=== PATIENT | female | born 1955 | race Caucasian/White ===

== ENCOUNTER → 2019-07-15 08:35 | Outpatient (CLI) | payer BC, SELFPAY ==
--- NOTE | 2019-07-15 | DI.MG.S_ITS ---
BILATERAL DIGITAL SCREENING MAMMOGRAM 3D/2D WITH CAD: 07/15/2019 CLINICAL: Routine screening. Family history of breast cancer. Comparison is made to exams dated: 09/08/2013 mammogram, 10/03/2014 mammogram - [facility], and 08/19/2016 mammogram - [facility]. The tissue of both breasts is heterogeneously dense. This may lower the sensitivity of mammography. Current study was also evaluated with a Computer Aided Detection (CAD) system. No significant masses, calcifications, or other findings are seen in either breast. There has been no significant interval change. IMPRESSION: NEGATIVE There is no mammographic evidence of malignancy. A 1 year screening mammogram is recommended. This exam was interpreted at Station ID: [id number]. NOTE: For mammograms, a report in lay terms will be sent to the patient. Approximately 15% of breast malignancies will not be visualized mammographically. In the management of a palpable breast mass, a negative mammogram must not discourage biopsy of a clinically suspicious lesion. Electronically Signed By: Cory carrion/yohan:07/16/2019 07:56:43 letter sent: Normal Exam ACR BI-RADS Category 1: Negative 3341F
== END ==
PROVIDERS: Visit Provider Student in an Organized Health Care Education/Training Program
DX: Z12.31 Encounter for screening mammogram for malignant neoplasm of breast (principal); Z80.3 Family history of malignant neoplasm of breast
CPT/HCPCS: 77063; 77067

== ENCOUNTER → 2020-07-18 10:22 | Outpatient (CLI) | payer BC, SELFPAY ==
--- NOTE | 2020-07-18 | DI.MG.S_ITS ---
BILATERAL DIGITAL SCREENING MAMMOGRAM 3D/2D WITH CAD: 07/18/2020 CLINICAL: Routine screening. Family history of breast cancer. Comparison is made to exams dated: 07/15/2019 mammogram - [facility] and 08/19/2016 mammogram - [facility]. The tissue of both breasts is heterogeneously dense. This may lower the sensitivity of mammography. Current study was also evaluated with a Computer Aided Detection (CAD) system. No significant masses, calcifications, or other findings are seen in either breast. There has been no significant interval change. IMPRESSION: NEGATIVE There is no mammographic evidence of malignancy. A 1 year screening mammogram is recommended. This exam was interpreted at Station ID: [id number]. NOTE: For mammograms, a report in lay terms will be sent to the patient. Approximately 15% of breast malignancies will not be visualized mammographically. In the management of a palpable breast mass, a negative mammogram must not discourage biopsy of a clinically suspicious lesion. Electronically Signed By: Benjamin gunter/yohan:07/18/2020 10:56:28 letter sent: Normal Exam ACR BI-RADS Category 1: Negative 3341F
== END ==
PROVIDERS: PCP Student in an Organized Health Care Education/Training Program; Referring Provider Student in an Organized Health Care Education/Training Program; Visit Provider Student in an Organized Health Care Education/Training Program
DX: Z12.31 Encounter for screening mammogram for malignant neoplasm of breast (principal); Z80.3 Family history of malignant neoplasm of breast
CPT/HCPCS: 77063; 77067

== ENCOUNTER → 2021-04-04 09:05 | Outpatient (CLI) | payer BC, SELFPAY ==
[2021-04-04 10:26] LABS: COVID19 -Nasal RAPID Negative (Negative)
== END ==
PROVIDERS: PCP Student in an Organized Health Care Education/Training Program; Visit Provider Physician Assistant
DX: Z01.812 Encounter for preprocedural laboratory examination (principal); Z20.822 Contact with and (suspected) exposure to COVID-19
CPT/HCPCS: 87635

== ENCOUNTER 2021-04-06 11:49 | Day surgery (SDC) | payer BC, SELFPAY ==
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
--- NOTE | 2021-04-06 12:15 | P.OP.ENDO_ITS ---
Operative Date/Time/Diagnoses Date of procedure: 04/06/21 Procedure Notes SCOAP/Timeout: 1:09 p.m. Procedure in detail: ENDOSCOPIST: Elma Gates MD Sedation RN: Daysi Cuenca RN Sedation start time: 1:10 p.m. Sedation end time: 1:34 p.m. PROCEDURE: Colonoscopy INDICATIONS: 1. History of colon polyps 2. Screening for colon cancer MEDICATION: Levsin 0.125 mg sublingual, incremental doses of Versed and fentanyl until appropriate level sedation achieved. ASA CLASS: 2 CECAL WITHDRAWAL TIME: 7 minutes COMPLICATIONS: None. EXTENT OF PROCEDURE: Cecum. QUALITY OF PREP: Good with portions of liquid stool. PROCEDURE: Prior to insertion of the colonoscope, a digital rectal examination was accomplished with circumferential palpation of the distal rectal mucosa without significant findings being noted. The high-definition colonoscope was passed into the rectum in the usual fashion and advanced over to the cecum without difficulty. The ileocecal valve, appendiceal stoma, and medial wall all could be inspected and no abnormalities were seen. ASCENDING COLON: As the colonoscope was withdrawn, care was taken to expose and inspect the haustral folds and no abnormalities were seen. HEPATIC FLEXURE: Normal, no polyps, diverticula or other abnormalities. TRANSVERSE COLON: Normal, no polyps, diverticula or other abnormalities. DESCENDING COLON: Normal, no polyps, diverticula or other abnormalities. SIGMOID COLON: Normal, no polyps, diverticula or other abnormalities. RECTUM: Normal. J maneuver was produced. There was no significant perianal disease. The J maneuver was broken. The remainder of the rectum was inspected and there was minor external hemorrhoid disease. The scope was withdrawn. IMPRESSION: 1. Normal colonoscopy 2. External hemorrhoid disease, mild PLAN: 1. Secondary to history of colon polyps, repeat colonoscopy in 5 years. The possibility of a missed lesion including a malignancy has been discussed with the patient previously. Potential alarm symptoms have been discussed and preeti young be reported immediately.
[2021-04-06 12:23] VITALS: BP 115/71; PULSE 72; RESP 18; TEMP 36.9; O2SAT 98; BMI 23.5
[2021-04-06] MEDS: HYOSCYAMINE 0.125 MG TABLET PO (13:04)
[2021-04-06] MEDS: LACTATED RINGERS 1,000 ML 200 ML IV (13:06)
[2021-04-06] MEDS: fentaNYL 250 MCG/5 ML INJ IV (13:20)
[2021-04-06] MEDS: MIDAZOLAM 5 MG/5 ML VIAL IV (13:20)
[2021-04-06 13:36] VITALS: BP 113/73; PULSE 61; RESP 14; TEMP 36.4; O2SAT 100
[2021-04-06 13:41] VITALS: BP 110/71; PULSE 61; RESP 14; O2SAT 100
[2021-04-06 13:46] VITALS: BP 112/76; PULSE 66; RESP 11; O2SAT 100
[2021-04-06 13:51] VITALS: BP 105/69; PULSE 65; RESP 12; O2SAT 99
[2021-04-06 13:54] VITALS: BP 118/76; PULSE 62; RESP 12; TEMP 36.6; O2SAT 100
== END 2021-04-06 14:03 | disposition home or self-care (01) ==
PROVIDERS: PCP Student in an Organized Health Care Education/Training Program; Referring Provider Student in an Organized Health Care Education/Training Program; Visit Provider Student in an Organized Health Care Education/Training Program
PROC: 0DJD8ZZ Inspection of Lower Intestinal Tract, Via Natural or Artificial Opening Endoscopic (ICD-10-PCS; CPT 45378; principal; 2021-04-06 13:00)
DX: Z12.11 Encounter for screening for malignant neoplasm of colon (principal); Z86.010 Personal history of colon polyps; K64.4 Residual hemorrhoidal skin tags
CPT/HCPCS: 45378; J2250; J3010

== ENCOUNTER → 2021-07-19 14:53 | Outpatient (CLI) | payer BC, SELFPAY ==
--- NOTE | 2021-07-19 14:54 | DI.MG.S_ITS ---
BILATERAL DIGITAL SCREENING MAMMOGRAM 3D/2D WITH CAD: 07/19/2021 CLINICAL: Routine screening. Family history of breast cancer. Comparison is made to exams dated: 07/18/2020 mammogram, 07/15/2019 mammogram - [facility], 08/19/2016 mammogram - [facility], 10/03/2014 mammogram, and 09/08/2013 mammogram - [facility]. The tissue of both breasts is heterogeneously dense. This may lower the sensitivity of mammography. Current study was also evaluated with a Computer Aided Detection (CAD) system. No significant masses, calcifications, or other findings are seen in either breast. There has been no significant interval change. IMPRESSION: NEGATIVE There is no mammographic evidence of malignancy. A 1 year screening mammogram is recommended. This exam was interpreted at Station ID: [id number]. NOTE: For mammograms, a report in lay terms will be sent to the patient. Approximately 15% of breast malignancies will not be visualized mammographically. In the management of a palpable breast mass, a negative mammogram must not discourage biopsy of a clinically suspicious lesion. Electronically Signed By: Cory carrion/yohan:07/20/2021 09:13:41 letter sent: Normal Exam ACR BI-RADS Category 1: Negative 3341F
== END ==
PROVIDERS: PCP Student in an Organized Health Care Education/Training Program; Referring Provider Student in an Organized Health Care Education/Training Program; Visit Provider Student in an Organized Health Care Education/Training Program
DX: Z12.31 Encounter for screening mammogram for malignant neoplasm of breast (principal); Z80.3 Family history of malignant neoplasm of breast
CPT/HCPCS: 77063; 77067

== ENCOUNTER → 2022-07-20 08:53 | Outpatient (CLI) | payer MEDICARE, SELFPAY ==
--- NOTE | 2022-07-20 08:55 | DI.MG.S_ITS ---
BILATERAL DIGITAL SCREENING MAMMOGRAM 3D/2D WITH CAD: 07/20/2022 CLINICAL: Routine screening. Family history of breast cancer. Comparison is made to exams dated: 07/19/2021 mammogram, 07/18/2020 mammogram, and 07/15/2019 mammogram - [facility]. Both breasts are heterogeneously dense, which may obscure small masses (category c / 51-75% glandular tissue). Current study was also evaluated with a Computer Aided Detection (CAD) system. No significant masses, calcifications, or other findings are seen in either breast. There has been no significant interval change. IMPRESSION: NEGATIVE There is no mammographic evidence of malignancy. A 1 year screening mammogram is recommended. Based on Tyrer-Cuzick model (a risk assessment model), the patient's lifetime risk is 24.8% and her 10 year risk is 12.5%. If a patient has an elevated risk, a more comprehensive evaluation should be considered and/or a referral to a genetic counselor. The [place] [employer], [employer], and NCCN Guidelines advise the consideration of Breast MRI as an adjunct to screening mammography in patients whose Lifetime risk to develop breast cancer is 20% or higher. This exam was interpreted at Station ID: [id number]. NOTE: For mammograms, a report in lay terms will be sent to the patient. Approximately 15% of breast malignancies will not be visualized mammographically. In the management of a palpable breast mass, a negative mammogram must not discourage biopsy of a clinically suspicious lesion. Electronically Signed By: Crispin rodriguez/yohan:07/22/2022 09:11:27 letter sent: Normal Exam ACR BI-RADS Category 1: Negative 3341F
== END ==
PROVIDERS: PCP Student in an Organized Health Care Education/Training Program; Referring Provider Family Medicine; Visit Provider Family Medicine
DX: Z12.31 Encounter for screening mammogram for malignant neoplasm of breast (principal); Z80.3 Family history of malignant neoplasm of breast
CPT/HCPCS: 77063; 77067

== ENCOUNTER → 2022-12-31 15:01 | Outpatient (CLI) | payer OTHER, SELFPAY ==
--- NOTE | 2023-01-01 15:29 | DI.DEXA.S_ITS ---
Indication: postmenopausal; screening for osteoporosis; Referring Provider: APRIL PAREKH Study: Bone densitometry was performed. Exam Date: December 31, 2022 Accession number: [id number] Bone Density: Region BMD T-score Z-score Classification AP Spine(L1-L4) 0.739 -2.8 -1.0 Osteoporosis Femoral Neck (Left) 0.695 -1.4 0.2 Osteopenia Total Hip (Left) 0.842 -0.8 0.5 Normal Femoral Neck (Right) 0.675 -1.6 0.0 Osteopenia Total Hip (Right) 0.754 -1.5 -0.3 Osteopenia Total Hip Mean 0.798 -1.2 0.1 Osteopenia World Health Organization criteria for BMD impression classify patients as: Normal (T-score at or above -1.0), Osteopenia (T-score between -1.0 and -2.5), or Osteoporosis (T-score at or below -2.5). 10-year Fracture Risk: FRAX not reported because: Some T-score for Spine Total or Hip Total or Femoral Neck at or below -2.5 Impression: The patient has osteoporosis, based on the Total Spine T-score. Discussion: INCREASED RISK OF FRACTURE. BONE DENSITY IS UNDESIRABLY LOW AT ONE OR MORE SKELETAL SITES, CONSISTENT WITH POSTMENOPAUSAL OSTEOPOROSIS. This patient's lowest T-score meets the World Health Organization's (WHO) criteria for osteoporosis at one or more sites (T-score -2.5 or below). In untreated patients, the risk of osteoporotic fracture increases approximately two-fold for each 1.0 SD decrease in T-score. Low bone density is not the only risk factor for fracture; also consider factors such as patient's age, frailty or poor health, risk of falling, risk of injury, previous osteoporotic fracture, family history of osteoporosis, cigarette smoking, low body weight, etc. Not everyone with low bone mineral density has osteoporosis; osteomalacia and other metabolic bone disorders should also be considered. Patients who have osteoporosis should be evaluated for specific diseases and conditions (secondary causes) that may cause or contribute to bone loss. The [employer] Clinical Endocrinologists (AACE) and National Osteoporosis Foundation (NOF) recommend pharmacologic intervention for all postmenopausal women whose T-score is in this range. The patient should follow a healthful lifestyle (good nutrition with adequate calcium and vitamin D, and appropriate weight-bearing exercise). Follow-Up: Consider a repeat BMD and Vertebral Fracture Assessment (VFA) exam in 2 years or sooner if medically necessary, to reassess this patient's status. Reported by: JENI TENORIO M.D. on 12/31/2022 3:35:00 PM.
== END ==
PROVIDERS: PCP Student in an Organized Health Care Education/Training Program; Referring Provider Internal Medicine; Visit Provider Internal Medicine
DX: Z78.0 Asymptomatic menopausal state (principal); Z13.820 Encounter for screening for osteoporosis; M81.0 Age-related osteoporosis without current pathological fracture; Z92.23 Personal history of estrogen therapy; Z90.710 Acquired absence of both cervix and uterus
CPT/HCPCS: 77080

== ENCOUNTER → 2023-08-21 15:17 | Outpatient (CLI) | payer OTHER, SELFPAY ==
--- NOTE | 2023-08-21 | DI.MG.S_ITS ---
BILATERAL DIGITAL SCREENING MAMMOGRAM 3D/2D WITH CAD: 08/21/2023 CLINICAL: Routine screening. Family history of breast cancer. Comparison is made to exams dated: 07/20/2022 mammogram, 07/19/2021 mammogram, and 07/18/2020 mammogram - [facility]. Both breasts are heterogeneously dense, which may obscure small masses (category c / 51-75% glandular tissue). Current study was also evaluated with a Computer Aided Detection (CAD) system. No significant masses, calcifications, or other findings are seen in either breast. There has been no significant interval change. IMPRESSION: NEGATIVE There is no mammographic evidence of malignancy. A 1 year screening mammogram is recommended. Based on Tyrer-Cuzick model (a risk assessment model), the patient's lifetime risk is 23.8% and her 10 year risk is 12.5%. If a patient has an elevated risk, a more comprehensive evaluation should be considered and/or a referral to a genetic counselor. The [employer] [employer], [employer], and NCCN Guidelines advise the consideration of Breast MRI as an adjunct to screening mammography in patients whose Lifetime risk to develop breast cancer is 20% or higher. This exam was interpreted at Station ID: [id number]. NOTE: For mammograms, a report in lay terms will be sent to the patient. Approximately 15% of breast malignancies will not be visualized mammographically. In the management of a palpable breast mass, a negative mammogram must not discourage biopsy of a clinically suspicious lesion. Electronically Signed By: Leland chan/yohan:08/22/2023 08:46:48 letter sent: Normal Exam ACR BI-RADS Category 1: Negative 3341F
== END ==
PROVIDERS: PCP Family Medicine; Referring Provider Family Medicine; Visit Provider Family Medicine
DX: Z12.31 Encounter for screening mammogram for malignant neoplasm of breast (principal); Z80.3 Family history of malignant neoplasm of breast
CPT/HCPCS: 77063; 77067

== ENCOUNTER → 2023-12-21 09:43 | Outpatient (CLI) | payer OTHER, SELFPAY ==
--- NOTE | 2023-12-21 09:50 | DI.RAD.S_ITS ---
PROCEDURE: XR THORACIC SPINE 3V INDICATIONS: chronic midline thoracic back pain TECHNIQUE: 3 views of the thoracic spine were acquired. COMPARISON: None. FINDINGS: Bones: No fractures or dislocations. No suspicious bony lesions. 12 pairs of ribs are noted, and appear intact where visualized. Mild to moderate multilevel degenerative changes with anterior osteophytosis, disc height loss and facet arthropathy. Slight dextroconvex curvature of the lumbar spine centered at L2. There is mild anterior wedging of multiple thoracic vertebral bodies Soft tissues: No paravertebral stripe thickening. IMPRESSION: 1. No acute bony abnormality. 2. Mild to moderate multilevel degenerative changes of the thoracic spine with mild anterior wedging of multiple thoracic vertebral bodies. If clinical symptoms persist, consider MRI for further evaluation. Dictated by: Wily Harry M.D. on 12/21/2023 at 18:38 Approved by: Wily Harry M.D. on 12/21/2023 at 18:39
== END ==
PROVIDERS: PCP Family Medicine; Referring Provider Family Medicine; Visit Provider Family Medicine
DX: M47.814 Spondylosis without myelopathy or radiculopathy, thoracic region (principal); M48.54XA Collapsed vertebra, not elsewhere classified, thoracic region, initial encounter for fracture; M54.6 Pain in thoracic spine; G89.29 Other chronic pain
CPT/HCPCS: 72072

== ENCOUNTER 2024-01-26 13:17 | Inpatient (IN) | payer OTHER, MEDICARE, SELFPAY ==
[2024-01-26] VITALS (21 sets, daily range): BP systolic 107–148; BP diastolic 58–79; PULSE 62–150; RESP 12–41; TEMP 36.6–37.2; O2SAT 95–100; BMI 19.3; BMI 20.3
--- NOTE | 2024-01-26 13:26 | DI.RAD.S_ITS ---
PROCEDURE: XR CHEST 1V INDICATIONS: chest pain TECHNIQUE: One view of the chest was acquired. COMPARISON: None. FINDINGS: Surgical changes and devices: None. Lungs and pleura: Lungs are clear. No pleural effusions or pneumothorax. Mediastinum: Mediastinal contours appear normal. Heart size is normal. Bones and chest wall: No suspicious bony lesions. Overlying soft tissues appear unremarkable. IMPRESSION: No acute cardiopulmonary abnormality is seen. Approved by: Benjamin Ball M.D. on 01/26/2024 at 14:57
[2024-01-26 13:47] LABS: Add Manual Diff / Slide Review NO; Basophils Absolute Auto 0 /uL (0-100); Basophils Percent Auto 0.4 % (0-2); Eosinophils Absolute Auto 0 /uL (0-450); Eosinophils Percent Auto 0.2 % (2-4); Hematocrit 46.9 % (36-46); Hemoglobin 15.7 g/dL (12.0-16.0); Lymphocytes Absolute Auto 700 /uL (1100-4500); Lymphocytes Percent Auto 10.4 % (25-40); Mean Corpuscular HGB Conc 33.4 % (30-36); Mean Corpuscular Hemoglobin 30.4 PG (26-34); Mean Corpuscular Volume 91.2 fL (80-100); Monocytes Absolute Auto 400 /uL (0-900); Monocytes Percent Auto 6.2 % (3-14); Neutrophils Absolute Auto 5700 /uL (1500-7000); Neutrophils Percent Auto 82.8 % (50-75); Platelet Count 243 X10^3/uL (150-400); Red Blood Cell Count 5.15 X10^6/uL (4.0-5.2); Red Cell Distribution Width 12.9 % (11.6-14.8); White Blood Cell Count 6.9 X10^3/uL (4.5-11.0)
[2024-01-26 13:54] LABS: INR 1.1 (0.9-1.3); Prothrombin Time 12.4 SECONDS (9.4-12.5)
[2024-01-26 13:57] LABS: PTT Partial Thromboplastin Tim 27 SECONDS (25.1-36.5)
[2024-01-26 14:00] LABS: Alanine Aminotransferase 29 IU/L (<35); Albumin Globulin Ratio 1.8 (1.0-2.8); Alkaline Phosphatase 168 U/L (38-126); Aspartate Aminotransferase 27 IU/L (14-36); Bilirubin Total 1.4 mg/dL (0.2-1.3); Blood Urea Nitrogen 18 mg/dL (7-17); Calcium 11.1 mg/dL (8.4-10.2); Carbon Dioxide 19 mmol/L (22-32); Chloride 94 mmol/L (98-107); Creatine Kinase 50 U/L (30-135); Estimated Glomerular Filt Rate > 60 mL/min (>60); Globulin 2.8 g/dL (1.7-4.1); HEMOLYSIS < 15 (0-50); Lipase 120 U/L (23-300); Magnesium 1.7 mg/dL (1.6-2.3); Potassium 4.7 mmol/L (3.4-5.1); Sodium 129 mmol/L (137-145); Total Protein 7.8 g/dL (6.3-8.2)
[2024-01-26 14:02] LABS: Glucose 575 mg/dL (80-110)
[2024-01-26 14:11] LABS: Troponin I < 0.012 ng/mL (0.01-0.034)
[2024-01-26 14:29] LABS: Hemoglobin A1C% w Est Avg Glu 12.5 % (4.0-6.0)
[2024-01-26] MEDS: SODIUM CHLORIDE 0.9% 1,000 ML 1000 ML IV (14:30)
[2024-01-26 14:33] LABS: Lactate (Lactic Acid) 1.9 mmol/L (0.7-2.1)
[2024-01-26 14:44] LABS: Phosphorous 4.2 mg/dL (2.8-4.1)
[2024-01-26 14:49] LABS: Ketones (Beta-Hydroxybutyrate) 6.66 mmol/L (<0.27)
[2024-01-26 15:15] LABS: PCO2 VBG 42.6 mmHg (45-50); pH VBG 7.26 (7.33-7.43)
[2024-01-26 15:16] LABS: Fractionated Inspired Oxygen 20; HCO3 VBG 19 mmol/L (24-28); Oxygen Saturation VBG 44 % (70-75); PO2 VBG 28 mmHg (35-45); Total CO2 VBG 20 mmol/L (24-29)
--- NOTE | 2024-01-26 15:16 | ED_ITS ---
HPI - Dizziness <Josi Singh PA-C - Last Filed: 01/26/24 18:46> General Chief Complaint: Dizziness Stated Complaint: AFIB, dizziness, eyesight problem Time Seen by Provider: 01/26/24 14:02 Source: patient Mode of arrival: Ambulatory History of Present Illness HPI Narrative: 68-year-old female with past medical history hypothyroidism, AFib, ADHD presents to the ED with a few days of lightheadedness, intermittent blurry vision, dry mouth. 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 EMS registered a blood sugar of 300. Patient is not a diagnosed diabetic. Patient endorses polydipsia, polyuria, dry mouth, unintentional weight loss of 20 lb over the last month. Patient states that she was diagnosed last July with atrial fibrillation but does not take any medications for it. Denies chest pain, shortness of breath, abdominal pain, nausea, vomiting, syncope. Denies any viral or flu-like symptoms. Related Data Home Medications Medication Instructions Recorded Confirmed calcium carbonate 400 mg/5 mL oral 400 mg PO DAILY 05/17/20 01/26/24 suspension multivitamin 1 cap PO DAILY 05/17/20 01/26/24 cholecalciferol (vitamin D3) 10 10 mcg PO DAILY 12/11/20 01/26/24 mcg (400 unit) capsule levothyroxine 100 mcg tablet 100 mcg PO DAILY 09/23/22 01/26/24 (Synthroid) vitamin E (dl, acetate) 1 softgel PO DAILY 09/23/22 01/26/24 Previous Rx's Medication Instructions Recorded dextroamphetamine-amphetamine ER 10 mg PO DAILY #30 caps 12/23/22 10 mg 24hr capsule,extend release Allergies Allergy/AdvReac Type Severity Reaction Status Date / Time No Known Drug Allergies Allergy Verified 09/23/22 14:36 Review of Systems <Josi Singh PA-C - Last Filed: 01/26/24 18:46> Constitutional Constitutional: Denies chills, Denies fatigue, Denies fever(s), Denies frequent falls, Denies lethargy, Reports poor appetite, Denies weakness and Reports weight loss Eyes Eyes: Reports blurry vision, Denies change in vision, Denies eye discharge, Denies irritation and Denies loss of vision ENT Ears, Nose, Mouth, and Throat: Denies change in voice, Denies dizziness, Denies neck pain, Denies sore throat and Denies throat swelling Comments: Dry mouth Cardiovascular Cardiovascular: Denies chest pain, Denies irregular heart rhythm, Reports lightheadedness, Denies palpitations, Denies dyspnea, Denies dyspnea on exertion and Denies orthopnea Respiratory Respiratory: Denies cough, Denies dyspnea, Denies dyspnea on exertion and Denies wheezing Gastrointestinal Gastrointestinal: Denies abdominal pain, Denies change in bowel habits, Denies diarrhea, Denies nausea and Denies vomiting Genitourinary Comments: Frequent urination Musculoskeletal Musculoskeletal: Denies neck pain and Denies numbness Integumentary/Breasts Skin/Breast: Denies pruritus, Denies erythema, Denies rash and Denies wounds Neurologic Neurologic: Denies behavioral changes, Denies confusion, Denies dizziness, Denies frequent falls, Denies loss of vision, Denies numbness and Denies weakness Psychiatric Psychiatric: Denies anxiety, Denies behavioral changes, Denies confusion, Denies depression, Denies homicidal ideation and Denies suicidal ideation Endocrine Endocrine: Denies fatigue, Denies flushing and Denies palpitations Hematologic/Lymphatic Hematologic/Lymphatic: Denies easy bruising Allergic/Immunologic Allergic/Immunologic: Denies urticaria, Denies throat swelling and Denies wheezing Patient History <Josi Singh PA-C - Last Filed: 01/26/24 18:46> Medical History (Updated 01/26/24 @ 18:29 by Josi Singh PA-C) Bunion of great toe of right foot Bunion of great toe of left foot Thyroid cancer Surgical History (Updated 04/06/21 @ 12:18 by Daina Allen RN) History of arthroscopic knee surgery H/O: hysterectomy History of thyroidectomy Social History household members: none Smoking Status: Never smoker alcohol intake: current Smoking Status: Never smoker alcohol intake frequency: holidays/special occasions only Substance Use Type: does not use Exam <Josi Singh PA-C - Last Filed: 01/26/24 18:46> Narrative Exam Narrative: Const General:?cooperative, healthy appearing and comfortable [facility] Head:?normal to inspection Ears:?hearing grossly normal bilaterally Nose:?external nose normal Face and sinus:?normal facial exam and sinuses nontender Mouth:?oral mucosae normal Throat:?posterior oropharynx normal Eyes General:?appearance normal, both eyes and all related structures Neck Neck:?normal visual inspection and no lymphadenopathy noted Resp Effort & Inspection:?normal respiratory effort Auscultation:?clear to auscultation bilaterally Cardio Rate:?regular rate Rhythm:?regular rhythm Neuro General:?patient alert, patient awake and patient oriented x3; PERRLA; gait normal Initial Vital Signs Initial Vital Signs: Vital Signs Temperature 97.8 F 01/26/24 13:19 Pulse Rate 96 H 01/26/24 13:19 Respiratory Rate 16 01/26/24 13:19 Blood Pressure 148/77 H 01/26/24 13:19 Pulse Oximetry 100 01/26/24 13:19 Oxygen Delivery Method Room Air 01/26/24 13:19 <Larisa Silva DO - Last Filed: 01/31/24 01:19> Initial Vital Signs Initial Vital Signs: Vital Signs Temperature 97.8 F 01/26/24 13:19 Pulse Rate 96 H 01/26/24 13:19 Respiratory Rate 16 01/26/24 13:19 Blood Pressure 148/77 H 01/26/24 13:19 Pulse Oximetry 100 01/26/24 13:19 Oxygen Delivery Method Room Air 01/26/24 13:19 Course <Josi Singh PA-C - Last Filed: 01/26/24 18:46> Orders Ordered: Discontinued Medications Acetaminophen (Acetaminophen 325 Mg Tablet) 650 mg PO Q4HR PRN PRN Reason: Fever/Mild Pain (1-3) Aspirin (Aspirin 81 Mg Chew Tab) 324 mg PO NOW ONE Stop: 01/26/24 13:26 Last Admin: 01/26/24 14:24 Dose: Not Given Documented By: JESSICA Aspirin (Aspirin Ec 81 Mg Tablet) 81 mg PO DAILY [facility] Last Admin: 01/29/24 08:50 Dose: 81 mg Documented By: Admin: 01/28/24 09:42 Dose: 81 mg Documented By: YURI Citalopram Hydrobromide (Citalopram 10 Mg Tablet) 10 mg PO DAILY [facility] Last Admin: 01/29/24 08:50 Dose: 10 mg Documented By: Admin: 01/28/24 08:48 Dose: 10 mg Documented By: Admin: 01/27/24 08:45 Dose: 10 mg Documented By: DAGO Diltiazem HCl (Diltiazem 5 Mg/Ml Sdv) 10 mg IV NOW ONE Stop: 01/26/24 18:37 Last Admin: 01/26/24 18:36 Dose: 10 mg Documented By: DAGO Enoxaparin Sodium (Enoxaparin 40 Mg/0.4 Ml Syringe) 40 mg SUBCUT DAILY [facility] Enoxaparin Sodium (Enoxaparin 30 Mg/0.3 Ml Syringe) 30 mg SUBCUT BID [facility] Last Admin: 01/27/24 08:45 Dose: 30 mg Documented By: Admin: 01/26/24 20:18 Dose: 30 mg Documented By: Enoxaparin Sodium (Enoxaparin 40 Mg/0.4 Ml Syringe) 40 mg SUBCUT DAILY [facility] Last Admin: 01/29/24 08:51 Dose: 40 mg Documented By: Admin: 01/28/24 08:48 Dose: 40 mg Documented By: YURI Famotidine (Famotidine 20 Mg Tablet) 20 mg PO DAILY [facility] Last Admin: 01/29/24 08:50 Dose: 20 mg Documented By: Admin: 01/28/24 08:48 Dose: 20 mg Documented By: Admin: 01/27/24 08:55 Dose: Not Given Documented By: DAGO Sodium Chloride (Normal Saline 0.9%) 1,000 mls @ 1,000 mls/hr IV BOLUS ONE Stop: 01/26/24 15:17 Last Infusion: 01/26/24 15:29 Dose: Infused Documented By: Admin: 01/26/24 14:30 Dose: 1,000 mls/hr Documented By: JESSICA Sodium Chloride (Normal Saline 0.9%) 1,000 mls @ 500 mls/hr IV CONT FAHAD Stop: 02/25/24 17:29 Last Infusion: 01/26/24 17:45 Dose: 0 mls/hr Documented By: Admin: 01/26/24 15:52 Dose: 500 mls/hr Documented By: SB POTASSIUM CHLORIDE IN WATER (Potassium Cl 10 Meq/100 Ml Nikia) 10 meq in 100 mls @ 100 mls/hr IV Q1H FAHAD Stop: 01/26/24 17:44 Last Infusion: 01/26/24 17:48 Dose: 0 mls/hr Documented By: Admin: 01/26/24 17:17 Dose: 100 mls/hr Documented By: Infusion: 01/26/24 17:15 Dose: Infused Documented By: Admin: 01/26/24 16:05 Dose: 100 mls/hr Documented By: SB INSULIN DRIP PREMIX (Myxredlin Drip Premix) 100 unit in 100 mls @ 5.579 mls/hr IV TITRATE FAHAD; Protocol Last Titration: 01/27/24 08:18 Dose: 0 unit/kg/hr, 0 mls/hr Documented By: DAGO Co-signed By: JIN Titration: 01/27/24 08:06 Dose: 0.05 unit/kg/hr, 2.95 mls/hr Documented By: KB Co-signed By: JIN Titration: 01/27/24 07:00 Dose: 0.02 unit/kg/hr, 1.18 mls/hr Documented By: Co-signed By: [facility] Titration: 01/27/24 06:00 Dose: 0.02 unit/kg/hr, 1.18 mls/hr Documented By: Co-signed By: SMS Titration: 01/27/24 05:00 Dose: 0.05 unit/kg/hr, 2.95 mls/hr Documented By: MS Co-signed By: SMS Titration: 01/27/24 04:00 Dose: 0.02 unit/kg/hr, 1.18 mls/hr Documented By: MS Co-signed By: SMS Titration: 01/27/24 03:00 Dose: 0.02 unit/kg/hr, 1.183 mls/hr Documented By: MS Co-signed By: SMS Titration: 01/27/24 02:00 Dose: 0.02 unit/kg/hr, 1.18 mls/hr Documented By: MS Co-signed By: SMS Titration: 01/27/24 01:00 Dose: 0.02 unit/kg/hr, 1.18 mls/hr Documented By: MS Co-signed By: SMS Titration: 01/27/24 00:00 Dose: 0.02 unit/kg/hr, 1.18 mls/hr Documented By: MS Co-signed By: SMS Titration: 01/26/24 23:00 Dose: 0.08 unit/kg/hr, 4.72 mls/hr Documented By: Co-signed By: SMS Titration: 01/26/24 22:00 Dose: 0.11 unit/kg/hr, 5.9 mls/hr Documented By: Co-signed By: CLEMENTINE Titration: 01/26/24 21:00 Dose: 0.05 unit/kg/hr, 2.95 mls/hr Documented By: Co-signed By: CLEMENTINE Titration: 01/26/24 20:05 Dose: 0.02 unit/kg/hr, 1.18 mls/hr Documented By: Co-signed By: CLEMENTINE Titration: 01/26/24 19:00 Dose: 0.05 unit/kg/hr, 2.95 mls/hr Documented By: DAGO Co-signed By: JIN Titration: 01/26/24 18:35 Dose: 0.11 unit/kg/hr, 5.9 mls/hr Documented By: DAGO Co-signed By: JIN Admin: 01/26/24 16:53 Dose: 0.1 unit/kg/hr, 5.579 mls/hr Documented By: TRIPP Co-signed By: JESSICA Sodium Chloride (Normal Saline 0.9%) 1,000 mls @ 125 mls/hr IV CONT FAHAD Last Admin: 01/26/24 19:04 Dose: Not Given Documented By: DAGO Lactated Ringer's (Lactated Ringers) 500 mls @ 1,000 mls/hr IV BOLUS ONE Stop: 01/26/24 18:52 Last Admin: 01/26/24 18:30 Dose: 1,000 mls/hr Documented By: DAGO Dextrose/Sodium Chloride (Dextrose 5%-0.45% Ns) 1,000 mls @ 88.5 mls/hr IV CONT FAHAD Last Infusion: 01/27/24 08:20 Dose: 0 mls/hr Documented By: Admin: 01/27/24 06:06 Dose: 88.5 mls/hr Documented By: Infusion: 01/27/24 06:06 Dose: Infused Documented By: Admin: 01/26/24 19:00 Dose: 88.5 mls/hr Documented By: Magnesium Sulfate (Magnesium Sulfate) 2 gm in 50 mls @ 25 mls/hr IV NOW ONE Stop: 01/26/24 21:21 Last Infusion: 01/26/24 21:30 Dose: Infused Documented By: Co-signed By: CLEMENTINE Admin: 01/26/24 19:48 Dose: 25 mls/hr Documented By: Co-signed By: CLEMENTINE POTASSIUM CHLORIDE IN WATER (Potassium Cl 10 Meq/100 Ml Nikia) 10 meq in 100 mls @ 100 mls/hr IV Q1H FAHAD Stop: 01/26/24 21:29 Last Admin: 01/26/24 21:28 Dose: 100 mls/hr Documented By: Infusion: 01/26/24 21:18 Dose: Infused Documented By: Admin: 01/26/24 20:18 Dose: 100 mls/hr Documented By: MS POTASSIUM CHLORIDE IN WATER (Potassium Cl 10 Meq/100 Ml Nikia) 10 meq in 100 mls @ 100 mls/hr IV Q1H FAHAD Stop: 01/27/24 03:14 Last Infusion: 01/27/24 03:03 Dose: Infused Documented By: Admin: 01/27/24 02:02 Dose: 100 mls/hr Documented By: Infusion: 01/27/24 02:02 Dose: Infused Documented By: Admin: 01/27/24 01:05 Dose: 100 mls/hr Documented By: Infusion: 01/27/24 01:05 Dose: Infused Documented By: Admin: 01/27/24 00:27 Dose: 100 mls/hr Documented By: Infusion: 01/27/24 00:27 Dose: Infused Documented By: Admin: 01/26/24 23:29 Dose: 100 mls/hr Documented By: MS POTASSIUM CHLORIDE IN WATER (Potassium Cl 10 Meq/100 Ml Nikia) 10 meq in 100 mls @ 100 mls/hr IV Q1H FAHAD Stop: 01/27/24 05:44 Last Admin: 01/27/24 05:00 Dose: 100 mls/hr Documented By: Infusion: 01/27/24 04:59 Dose: Infused Documented By: Admin: 01/27/24 03:59 Dose: 100 mls/hr Documented By: Dextrose (D10w) 100 mls @ 999 mls/hr IV PRN PRN PRN Reason: Hypoglycemia Insulin Glargine (Insulin Glargine 100 Unit/Ml 3ml Pen) 11.8 unit SUBCUT NOW STA Stop: 01/27/24 08:12 Last Admin: 01/27/24 08:50 Dose: Not Given Documented By: DAGO Insulin Glargine (Insulin Glargine 100 Unit/Ml 3ml Pen) 12 unit SUBCUT NOW ONE Stop: 01/27/24 08:43 Last Admin: 01/27/24 08:45 Dose: 12 unit Documented By: DAGO Co-signed By: JIN Insulin Glargine (Insulin Glargine 100 Unit/Ml 3ml Pen) 12 unit SUBCUT DAILYCC [facility] Insulin Glargine (Insulin Glargine 100 Unit/Ml 3ml Pen) 12 unit SUBCUT Q12HR [facility]HAD Last Admin: 01/27/24 15:19 Dose: Not Given Documented By: DAGO Insulin Glargine (Insulin Glargine 100 Unit/Ml 3ml Pen) 12 unit SUBCUT BID FAHAD Last Admin: 01/29/24 08:31 Dose: 12 unit Documented By: PENELOPE Co-signed By: JIN Admin: 01/28/24 20:41 Dose: 12 unit Documented By: Co-signed By: MACARENA Admin: 01/28/24 08:41 Dose: 12 unit Documented By: YURI Co-signed By: JOHN Admin: 01/27/24 20:25 Dose: 12 unit Documented By: Co-signed By: ARTURO Insulin Human Lispro (Insulin Lispro 100 Unit/Ml 3ml Vial) 0 unit SUBCUT ACHS [facility]; Protocol Last Admin: 01/29/24 12:50 Dose: 7 unit Documented By: PENELOPE Co-signed By: JIN Admin: 01/29/24 08:32 Dose: 2 unit Documented By: PENELOPE Co-signed By: JIN Admin: 01/28/24 20:41 Dose: 2 unit Documented By: Co-signed By: MACARENA Admin: 01/28/24 17:00 Dose: 7 unit Documented By: YURI Co-signed By: JOHN Admin: 01/28/24 12:22 Dose: 4 unit Documented By: YURI Co-signed By: Admin: 01/28/24 08:32 Dose: 2 unit Documented By: YURI Co-signed By: EV Admin: 01/27/24 20:26 Dose: 5 unit Documented By: Co-signed By: ARTURO Admin: 01/27/24 17:19 Dose: 2 unit Documented By: DAGO Co-signed By: JIN Admin: 01/27/24 12:35 Dose: 10 unit Documented By: DAGO Co-signed By: JIN Admin: 04/16/24 08:46 Dose: 2 unit Documented By: DAGO Co-signed By: JIN Levothyroxine Sodium (Levothyroxine 100 Mcg Tablet) 100 mcg PO 0600 [facility] Last Admin: 01/27/24 07:03 Dose: 100 mcg Documented By: Levothyroxine Sodium (Levothyroxine 100 Mcg Tablet) 150 mcg PO 0600 [facility] Last Admin: 01/29/24 06:19 Dose: 150 mcg Documented By: Admin: 01/28/24 06:26 Dose: 150 mcg Documented By: Metoprolol Tartrate (Metoprolol Ir 25 Mg Tablet) 25 mg PO BID [facility] Last Admin: 01/29/24 08:51 Dose: 25 mg Documented By: Admin: 01/28/24 20:08 Dose: 25 mg Documented By: Admin: 01/28/24 08:48 Dose: 25 mg Documented By: Admin: 01/27/24 20:24 Dose: 25 mg Documented By: Admin: 01/27/24 08:49 Dose: 25 mg Documented By: Admin: 01/26/24 21:08 Dose: 25 mg Documented By: Naloxone HCl (Naloxone 0.4 Mg/Ml Vial) 0.2 mg IV Q2MIN PRN PRN Reason: Opiate Reversal Dextroamphetamine- Amphetamine Er 10 Mg Capsule 10 mg PO DAILY@0700 [facility] Dextroamphetamine- Amphetamine Er 10 Mg Capsule 10 mg PO DAILY@0700 [facility] Last Admin: 01/29/24 07:36 Dose: 10 mg Documented By: Admin: 01/28/24 12:38 Dose: 10 mg Documented By: YURI Ondansetron HCl (Ondansetron 4 Mg/2 Ml Inj) 4 mg IV Q4HR PRN PRN Reason: Nausea And Vomiting Potassium Chloride (Potassium Chloride 20 Meq Tab) 40 meq PO NOW ONE Stop: 01/28/24 09:39 Last Admin: 01/28/24 09:45 Dose: 40 meq Documented By: YURI Sodium Chloride (Sodium Chloride 0.9% Flush) 10 ml IV BID [facility] Sodium Chloride (Sodium Chloride 0.9% Flush) 10 ml IV PRN PRN PRN Reason: Flush Vital Signs Vital signs: Vital Signs - 8 hr 01/26/24 13:19 01/26/24 14:47 Temperature 97.8 F Pulse Rate 96 H 77 Respiratory Rate 16 18 Blood Pressure 148/77 H 122/60 Pulse Oximetry 100 100 Oxygen Delivery Method Room Air Room Air <Larisaiman Silva, DO - Last Filed: 01/31/24 01:19> Orders Ordered: Discontinued Medications Acetaminophen (Acetaminophen 325 Mg Tablet) 650 mg PO Q4HR PRN PRN Reason: Fever/Mild Pain (1-3) Aspirin (Aspirin 81 Mg Chew Tab) 324 mg PO NOW ONE Stop: 01/26/24 13:26 Last Admin: 01/26/24 14:24 Dose: Not Given Documented By: JESSICA Aspirin (Aspirin Ec 81 Mg Tablet) 81 mg PO DAILY [facility] Last Admin: 01/29/24 08:50 Dose: 81 mg Documented By: Admin: 01/28/24 09:42 Dose: 81 mg Documented By: YURI Citalopram Hydrobromide (Citalopram 10 Mg Tablet) 10 mg PO DAILY [facility] Last Admin: 01/29/24 08:50 Dose: 10 mg Documented By: Admin: 01/28/24 08:48 Dose: 10 mg Documented By: Admin: 01/27/24 08:45 Dose: 10 mg Documented By: DAGO Diltiazem HCl (Diltiazem 5 Mg/Ml Sdv) 10 mg IV NOW ONE Stop: 01/26/24 18:37 Last Admin: 01/26/24 18:36 Dose: 10 mg Documented By: DAGO Enoxaparin Sodium (Enoxaparin 40 Mg/0.4 Ml Syringe) 40 mg SUBCUT DAILY [facility] Enoxaparin Sodium (Enoxaparin 30 Mg/0.3 Ml Syringe) 30 mg SUBCUT BID [facility] Last Admin: 01/27/24 08:45 Dose: 30 mg Documented By: Admin: 01/26/24 20:18 Dose: 30 mg Documented By: Enoxaparin Sodium (Enoxaparin 40 Mg/0.4 Ml Syringe) 40 mg SUBCUT DAILY [facility] Last Admin: 01/29/24 08:51 Dose: 40 mg Documented By: Admin: 01/28/24 08:48 Dose: 40 mg Documented By: YURI Famotidine (Famotidine 20 Mg Tablet) 20 mg PO DAILY [facility] Last Admin: 01/29/24 08:50 Dose: 20 mg Documented By: Admin: 01/28/24 08:48 Dose: 20 mg Documented By: Admin: 01/27/24 08:55 Dose: Not Given Documented By: DAGO Sodium Chloride (Normal Saline 0.9%) 1,000 mls @ 1,000 mls/hr IV BOLUS ONE Stop: 01/26/24 15:17 Last Infusion: 01/26/24 15:29 Dose: Infused Documented By: Admin: 01/26/24 14:30 Dose: 1,000 mls/hr Documented By: JESSICA Sodium Chloride (Normal Saline 0.9%) 1,000 mls @ 500 mls/hr IV CONT FAHAD Stop: 02/25/24 17:29 Last Infusion: 01/26/24 17:45 Dose: 0 mls/hr Documented By: Admin: 01/26/24 15:52 Dose: 500 mls/hr Documented By: TRIPP POTASSIUM CHLORIDE IN WATER (Potassium Cl 10 Meq/100 Ml Nikia) 10 meq in 100 mls @ 100 mls/hr IV Q1H FAHAD Stop: 01/26/24 17:44 Last Infusion: 01/26/24 17:48 Dose: 0 mls/hr Documented By: Admin: 01/26/24 17:17 Dose: 100 mls/hr Documented By: Infusion: 01/26/24 17:15 Dose: Infused Documented By: Admin: 01/26/24 16:05 Dose: 100 mls/hr Documented By: TRIPP INSULIN DRIP PREMIX (Myxredlin Drip Premix) 100 unit in 100 mls @ 5.579 mls/hr IV TITRATE FAHAD; Protocol Last Titration: 01/27/24 08:18 Dose: 0 unit/kg/hr, 0 mls/hr Documented By: DAGO Co-signed By: JIN Titration: 01/27/24 08:06 Dose: 0.05 unit/kg/hr, 2.95 mls/hr Documented By: DAGO Co-signed By: JIN Titration: 01/27/24 07:00 Dose: 0.02 unit/kg/hr, 1.18 mls/hr Documented By: Co-signed By: CLEMENTINE Titration: 01/27/24 06:00 Dose: 0.02 unit/kg/hr, 1.18 mls/hr Documented By: Co-signed By: SMS Titration: 01/27/24 05:00 Dose: 0.05 unit/kg/hr, 2.95 mls/hr Documented By: Co-signed By: SMS Titration: 01/27/24 04:00 Dose: 0.02 unit/kg/hr, 1.18 mls/hr Documented By: MS Co-signed By: SMS Titration: 01/27/24 03:00 Dose: 0.02 unit/kg/hr, 1.183 mls/hr Documented By: MS Co-signed By: SMS Titration: 01/27/24 02:00 Dose: 0.02 unit/kg/hr, 1.18 mls/hr Documented By: MS Co-signed By: SMS Titration: 01/27/24 01:00 Dose: 0.02 unit/kg/hr, 1.18 mls/hr Documented By: MS Co-signed By: SMS Titration: 01/27/24 00:00 Dose: 0.02 unit/kg/hr, 1.18 mls/hr Documented By: Co-signed By: SMS Titration: 01/26/24 23:00 Dose: 0.08 unit/kg/hr, 4.72 mls/hr Documented By: Co-signed By: SMS Titration: 01/26/24 22:00 Dose: 0.11 unit/kg/hr, 5.9 mls/hr Documented By: Co-signed By: SMS Titration: 01/26/24 21:00 Dose: 0.05 unit/kg/hr, 2.95 mls/hr Documented By: Co-signed By: SMS Titration: 01/26/24 20:05 Dose: 0.02 unit/kg/hr, 1.18 mls/hr Documented By: Co-signed By: SMS Titration: 01/26/24 19:00 Dose: 0.05 unit/kg/hr, 2.95 mls/hr Documented By: DAGO Co-signed By: JIN Titration: 01/26/24 18:35 Dose: 0.11 unit/kg/hr, 5.9 mls/hr Documented By: DAGO Co-signed By: JIN Admin: 01/26/24 16:53 Dose: 0.1 unit/kg/hr, 5.579 mls/hr Documented By: TRIPP Co-signed By: JESSICA Sodium Chloride (Normal Saline 0.9%) 1,000 mls @ 125 mls/hr IV CONT FAHAD Last Admin: 01/26/24 19:04 Dose: Not Given Documented By: DAGO Lactated Ringer's (Lactated Ringers) 500 mls @ 1,000 mls/hr IV BOLUS ONE Stop: 01/26/24 18:52 Last Admin: 01/26/24 18:30 Dose: 1,000 mls/hr Documented By: ADGO Dextrose/Sodium Chloride (Dextrose 5%-0.45% Ns) 1,000 mls @ 88.5 mls/hr IV CONT FAHAD Last Infusion: 01/27/24 08:20 Dose: 0 mls/hr Documented By: Admin: 01/27/24 06:06 Dose: 88.5 mls/hr Documented By: Infusion: 01/27/24 06:06 Dose: Infused Documented By: Admin: 01/26/24 19:00 Dose: 88.5 mls/hr Documented By: Magnesium Sulfate (Magnesium Sulfate) 2 gm in 50 mls @ 25 mls/hr IV NOW ONE Stop: 01/26/24 21:21 Last Infusion: 01/26/24 21:30 Dose: Infused Documented By: Co-signed By: CLEMENTINE Admin: 01/26/24 19:48 Dose: 25 mls/hr Documented By: Co-signed By: CLEMENTINE POTASSIUM CHLORIDE IN WATER (Potassium Cl 10 Meq/100 Ml Nikia) 10 meq in 100 mls @ 100 mls/hr IV Q1H FAHAD Stop: 01/26/24 21:29 Last Admin: 01/26/24 21:28 Dose: 100 mls/hr Documented By: Infusion: 01/26/24 21:18 Dose: Infused Documented By: Admin: 01/26/24 20:18 Dose: 100 mls/hr Documented By: POTASSIUM CHLORIDE IN WATER (Potassium Cl 10 Meq/100 Ml Nikia) 10 meq in 100 mls @ 100 mls/hr IV Q1H FAHAD Stop: 01/27/24 03:14 Last Infusion: 01/27/24 03:03 Dose: Infused Documented By: Admin: 01/27/24 02:02 Dose: 100 mls/hr Documented By: Infusion: 01/27/24 02:02 Dose: Infused Documented By: Admin: 01/27/24 01:05 Dose: 100 mls/hr Documented By: Infusion: 01/27/24 01:05 Dose: Infused Documented By: Admin: 01/27/24 00:27 Dose: 100 mls/hr Documented By: Infusion: 01/27/24 00:27 Dose: Infused Documented By: Admin: 01/26/24 23:29 Dose: 100 mls/hr Documented By: POTASSIUM CHLORIDE IN WATER (Potassium Cl 10 Meq/100 Ml Nikia) 10 meq in 100 mls @ 100 mls/hr IV Q1H FAHAD Stop: 01/27/24 05:44 Last Admin: 01/27/24 05:00 Dose: 100 mls/hr Documented By: Infusion: 01/27/24 04:59 Dose: Infused Documented By: Admin: 01/27/24 03:59 Dose: 100 mls/hr Documented By: Dextrose (D10w) 100 mls @ 999 mls/hr IV PRN PRN PRN Reason: Hypoglycemia Insulin Glargine (Insulin Glargine 100 Unit/Ml 3ml Pen) 11.8 unit SUBCUT NOW STA Stop: 01/27/24 08:12 Last Admin: 01/27/24 08:50 Dose: Not Given Documented By: DAGO Insulin Glargine (Insulin Glargine 100 Unit/Ml 3ml Pen) 12 unit SUBCUT NOW ONE Stop: 01/27/24 08:43 Last Admin: 01/27/24 08:45 Dose: 12 unit Documented By: DAGO Co-signed By: JIN Insulin Glargine (Insulin Glargine 100 Unit/Ml 3ml Pen) 12 unit SUBCUT DAILYCC [facility] Insulin Glargine (Insulin Glargine 100 Unit/Ml 3ml Pen) 12 unit SUBCUT Q12HR [facility] Last Admin: 01/27/24 15:19 Dose: Not Given Documented By: DAGO Insulin Glargine (Insulin Glargine 100 Unit/Ml 3ml Pen) 12 unit SUBCUT BID [facility] Last Admin: 01/29/24 08:31 Dose: 12 unit Documented By: PENELOPE Co-signed By: JIN Admin: 01/28/24 20:41 Dose: 12 unit Documented By: Co-signed By: CB Admin: 01/28/24 08:41 Dose: 12 unit Documented By: YURI Co-signed By: JOHN Admin: 01/27/24 20:25 Dose: 12 unit Documented By: Co-signed By: AKP Insulin Human Lispro (Insulin Lispro 100 Unit/Ml 3ml Vial) 0 unit SUBCUT ACHS FAHAD; Protocol Last Admin: 01/29/24 12:50 Dose: 7 unit Documented By: PENELOPE Co-signed By: JIN Admin: 01/29/24 08:32 Dose: 2 unit Documented By: PENELOPE Co-signed By: JIN Admin: 01/28/24 20:41 Dose: 2 unit Documented By: Co-signed By: CB Admin: 01/28/24 17:00 Dose: 7 unit Documented By: YURI Co-signed By: EV Admin: 01/28/24 12:22 Dose: 4 unit Documented By: YURI Co-signed By: AH Admin: 01/28/24 08:32 Dose: 2 unit Documented By: YURI Co-signed By: EV Admin: 01/27/24 20:26 Dose: 5 unit Documented By: Co-signed By: ARTURO Admin: 01/27/24 17:19 Dose: 2 unit Documented By: DAGO Co-signed By: JIN Admin: 01/27/24 12:35 Dose: 10 unit Documented By: DAGO Co-signed By: JIN Admin: 01/27/24 08:46 Dose: 2 unit Documented By: DAGO Co-signed By: JIN Levothyroxine Sodium (Levothyroxine 100 Mcg Tablet) 100 mcg PO 0600 [facility] Last Admin: 01/27/24 07:03 Dose: 100 mcg Documented By: Levothyroxine Sodium (Levothyroxine 100 Mcg Tablet) 150 mcg PO 0600 [facility] [facility] Last Admin: 01/29/24 06:19 Dose: 150 mcg Documented By: Admin: 01/28/24 06:26 Dose: 150 mcg Documented By: Metoprolol Tartrate (Metoprolol Ir 25 Mg Tablet) 25 mg PO BID [facility] Last Admin: 01/29/24 08:51 Dose: 25 mg Documented By: Admin: 01/28/24 20:08 Dose: 25 mg Documented By: Admin: 01/28/24 08:48 Dose: 25 mg Documented By: Admin: 01/27/24 20:24 Dose: 25 mg Documented By: Admin: 01/27/24 08:49 Dose: 25 mg Documented By: Admin: 01/26/24 21:08 Dose: 25 mg Documented By: Naloxone HCl (Naloxone 0.4 Mg/Ml Vial) 0.2 mg IV Q2MIN PRN PRN Reason: Opiate Reversal Dextroamphetamine- Amphetamine Er 10 Mg Capsule 10 mg PO DAILY@0700 [facility] Dextroamphetamine- Amphetamine Er 10 Mg Capsule 10 mg PO DAILY@0700 [facility] Last Admin: 01/29/24 07:36 Dose: 10 mg Documented By: Admin: 01/28/24 12:38 Dose: 10 mg Documented By: CW Ondansetron HCl (Ondansetron 4 Mg/2 Ml Inj) 4 mg IV Q4HR PRN PRN Reason: Nausea And Vomiting Potassium Chloride (Potassium Chloride 20 Meq Tab) 40 meq PO NOW ONE Stop: 01/28/24 09:39 Last Admin: 01/28/24 09:45 Dose: 40 meq Documented By: CW Sodium Chloride (Sodium Chloride 0.9% Flush) 10 ml IV BID [facility] Sodium Chloride (Sodium Chloride 0.9% Flush) 10 ml IV PRN PRN PRN Reason: Flush Vital Signs Vital signs: Vital Signs - 8 hr 01/26/24 13:19 01/26/24 14:47 Temperature 97.8 F Pulse Rate 96 H 77 Respiratory Rate 16 18 Blood Pressure 148/77 H 122/60 Pulse Oximetry 100 100 Oxygen Delivery Method Room Air Room Air MDM - Dizziness <Josi Singh PA-C - Last Filed: 01/26/24 18:46> Lab Data 01/28/24 04:18 01/29/24 04:15 Labs: Lab Results 01/26/24 01/26/24 01/26/24 Range/Units 13:35 13:38 14:24 WBC 6.9 (4.5-11.0) X10^3/uL RBC 5.15 (4.0-5.2) X10^6/uL Hgb 15.7 (12.0-16.0) g/dL Hct 46.9 H (36-46) % MCV 91.2 (80-100) fL MCH 30.4 (26-34) PG MCHC 33.4 (30-36) % RDW 12.9 (11.6-14.8) % Plt Count 243 (150-400) X10^3/uL Neut % (Auto) 82.8 H (50-75) % Lymph % (Auto) 10.4 L (25-40) % [place] % (Auto) 6.2 (3-14) % Eos % (Auto) 0.2 L (2-4) % Baso % (Auto) 0.4 (0-2) % Neut # (Auto) 5700 (4970-3532) /uL Lymph # (Auto) 700 L (5509-9561) /uL [place] # (Auto) 400 (0-900) /uL Eos # (Auto) 0 (0-450) /uL Baso # (Auto) 0 (0-100) /uL PT 12.4 (9.4-12.5) SECONDS INR 1.1 (0.9-1.3) APTT 27 (25.1-36.5) SECONDS VBG pH 7.26 L (7.33-7.43) VBG pCO2 42.6 L (45-50) mmHg VBG pO2 28 L (35-45) mmHg VBG HCO3 19 L (24-28) mmol/L VBG Total CO2 20 L (24-29) mmol/L VBG O2 Saturation 44 L (70-75) % VBG Base Excess -8.0 L (0-4) mmol/L FiO2 20 Sodium 129 L (137-145) mmol/L Potassium 4.7 (3.4-5.1) mmol/L Chloride 94 L (98-107) mmol/L Carbon Dioxide 19 L (22-32) mmol/L BUN 18 H (7-17) mg/dL Creatinine 0.72 (0.52-1.04) mg/dL Estimated GFR > 60 (>60) mL/min BUN/Creatinine Ratio 25.0 H (6-22) Glucose 575 H* (80-110) mg/dL Hemoglobin A1c 12.5 H (4.0-6.0) % Lactate 1.9 (0.7-2.1) mmol/L Calcium 11.1 H (8.4-10.2) mg/dL Phosphorus 4.2 H (2.8-4.1) mg/dL Magnesium 1.7 (1.6-2.3) mg/dL Total Bilirubin 1.4 H (0.2-1.3) mg/dL AST 27 (14-36) IU/L ALT 29 (<35) IU/L Alkaline Phosphatase 168 H (38-126) U/L Total Creatine Kinase 50 (30-135) U/L Troponin I < 0.012 (0.01-0.034) ng/mL Total Protein 7.8 (6.3-8.2) g/dL Albumin 5.0 (3.5-5.0) g/dL Globulin 2.8 (1.7-4.1) g/dL Albumin/Globulin Ratio 1.8 (1.0-2.8) Lipase 120 (23-300) U/L TSH < 0.02 L (0.47-4.68) uIU/mL Free T4 3.69 H (0.78-2.19) ng/dL Ketones 6.66 H (<0.27) mmol/L Point of Care Testing Glucose POC 383 MDM Narrative Medical decision making narrative: 68-year-old female with past medical history hypothyroidism, AFib, ADHD presents to the ED with a few days of lightheadedness, intermittent blurry vision, dry mouth. Concern for hyperglycemia versus DKA versus HHS versus dehydration versus AFib versus thyroid derangements versus other. Obtained EKG, chest x- ray, labs, troponin, UA, serum ketones, lactate, A1c, TSH, VBG. Serum blood glucose elevated to 575. Positive for serum ketones. VBG shows acidosis with pH of 7.26. Anion gap elevated to 15. Urine without UTI but positive for ketones and glucose. Potassium WNL 4.7. A1c elevated to 12.5. Chest x-ray without acute findings. EKG without acute findings, normal sinus rhythm. Troponin within normal limits. Findings consistent with DKA. Patient started on IV fluids, potassium repletion. Repeat potassium 4.8. Will continue potassium repletion and start insulin. Patient's PCP Dr. Lobato was consulted, he accepts the patient to the ICU continued treatment for the DKA. Patient continues to be stable. TSH < 0.02. T4 elevated to 3.69. Patient seen by Dr. Connolly, admitted to the ICU and transferred upstairs. <Larisa Silva DO - Last Filed: 01/31/24 01:19> Lab Data Labs: Lab Results 01/26/24 01/26/24 01/26/24 Range/Units 13:35 13:38 14:24 WBC 6.9 (4.5-11.0) X10^3/uL RBC 5.15 (4.0-5.2) X10^6/uL Hgb 15.7 (12.0-16.0) g/dL Hct 46.9 H (36-46) % MCV 91.2 (80-100) fL MCH 30.4 (26-34) PG MCHC 33.4 (30-36) % RDW 12.9 (11.6-14.8) % Plt Count 243 (150-400) X10^3/uL Neut % (Auto) 82.8 H (50-75) % Lymph % (Auto) 10.4 L (25-40) % [place] % (Auto) 6.2 (3-14) % Eos % (Auto) 0.2 L (2-4) % Baso % (Auto) 0.4 (0-2) % Neut # (Auto) 5700 (6862-7063) /uL Lymph # (Auto) 700 L (5937-8409) /uL [place] # (Auto) 400 (0-900) /uL Eos # (Auto) 0 (0-450) /uL Baso # (Auto) 0 (0-100) /uL PT 12.4 (9.4-12.5) SECONDS INR 1.1 (0.9-1.3) APTT 27 (25.1-36.5) SECONDS VBG pH 7.26 L (7.33-7.43) VBG pCO2 42.6 L (45-50) mmHg VBG pO2 28 L (35-45) mmHg VBG HCO3 19 L (24-28) mmol/L VBG Total CO2 20 L (24-29) mmol/L VBG O2 Saturation 44 L (70-75) % VBG Base Excess -8.0 L (0-4) mmol/L FiO2 20 Sodium 129 L (137-145) mmol/L Potassium 4.7 (3.4-5.1) mmol/L Chloride 94 L (98-107) mmol/L Carbon Dioxide 19 L (22-32) mmol/L BUN 18 H (7-17) mg/dL Creatinine 0.72 (0.52-1.04) mg/dL Estimated GFR > 60 (>60) mL/min BUN/Creatinine Ratio 25.0 H (6-22) Glucose 575 H* (80-110) mg/dL Hemoglobin A1c 12.5 H (4.0-6.0) % Lactate 1.9 (0.7-2.1) mmol/L Calcium 11.1 H (8.4-10.2) mg/dL Phosphorus 4.2 H (2.8-4.1) mg/dL Magnesium 1.7 (1.6-2.3) mg/dL Total Bilirubin 1.4 H (0.2-1.3) mg/dL AST 27 (14-36) IU/L ALT 29 (<35) IU/L Alkaline Phosphatase 168 H (38-126) U/L Total Creatine Kinase 50 (30-135) U/L Troponin I < 0.012 (0.01-0.034) ng/mL Total Protein 7.8 (6.3-8.2) g/dL Albumin 5.0 (3.5-5.0) g/dL Globulin 2.8 (1.7-4.1) g/dL Albumin/Globulin Ratio 1.8 (1.0-2.8) Lipase 120 (23-300) U/L TSH < 0.02 L (0.47-4.68) uIU/mL Free T4 3.69 H (0.78-2.19) ng/dL Ketones 6.66 H (<0.27) mmol/L Point of Care Testing Glucose POC 383 Discharge Plan Departure Patient Disposition: Admitted As Inpatient Clinical Impression: DKA (diabetic ketoacidosis) Qualifiers: Diabetes mellitus type: type 2 Diabetes mellitus complication detail: without coma Qualified Code(s): E11.10 - Type 2 diabetes mellitus with ketoacidosis without coma Admit Date/Time: 01/26/24 15:11 Admit Provider: Johan Lobato ED Sign-out <Larisa Silva DO - Last Filed: 01/31/24 01:19> Cosign ED Attending Cosignature Attestation: I was immediately available in the department for consultation. Case is discussed with myself, patient's labs were reviewed, plan to start insulin after fluids and we will recheck electrolytes and start potassium as needed. Patient to be admitted for DKA to Dr. Lobato, who did see the patient in the department.
--- NOTE | 2024-01-26 15:36 | PC.NURSE ---
Patient taken back to the main ED. This RN called and gave known report to CRIS Reed
[2024-01-26] MEDS: SODIUM CHLORIDE 0.9% 1,000 ML 500 ML IV (15:52)
[2024-01-26 16:02] LABS: BUN Creatinine Ratio 30.8 (6-22); Blood Urea Nitrogen 16 mg/dL (7-17); Carbon Dioxide 15 mmol/L (22-32); Chloride 98 mmol/L (98-107); Estimated Glomerular Filt Rate > 60 mL/min (>60); Glucose 416 mg/dL (80-110); Sodium 130 mmol/L (137-145)
[2024-01-26 16:03] LABS: HEMOLYSIS 85 (0-50); Potassium 4.8 mmol/L (3.4-5.1)
[2024-01-26] MEDS: POTASSIUM CHLORIDE IN WATER 10 MEQ/100 ML PIGGYBACK 100 MEQ IV ×5 (16:05→23:29)
--- NOTE | 2024-01-26 16:14 | PC.NURSE ---
Pt reports intermittent wobblyness and some lightheadedness while walking. Pt has had dry mouth and significant weight loss (about 20 pounds) within the last month. Reports her thyroid and parathyroid have been removed. Provider Francisco is aware.
[2024-01-26] MEDS: INSULIN DRIP PREMIX 100 UNIT/100 ML PLAST..BAG 5.579 UNIT IV (16:53)
[2024-01-26 17:17] LABS: TSH w/ Reflex to FT4 < 0.02 uIU/mL (0.47-4.68)
[2024-01-26 17:46] LABS: Free T4, Direct Thyroxine 3.69 ng/dL (0.78-2.19)
--- NOTE | 2024-01-26 17:57 | P.HP_ITS ---
History of Present Illness History of Present Illness Date Patient Seen: 01/26/24 Time Patient Seen: 17:57 Date of Onset of Symptoms: 12/24/23 Chief complaint: AFIB, dizziness, eyesight problem Narrative: Patient is a 68-year-old female well known to me who presents with increasing thirst dizziness frequent urination. Patient has recently been doing diagnosed with AFib paroxysmal. She had been on only aspirin but no other treatment. Had been on metoprolol 25 mg. She otherwise has no other significant issues other than anxiety and ADD. She has had no chest pain fevers chills abdominal pain urinary changes with pain leg pain chest pain headaches visual symptoms. She states that she started getting dizzy today. This was having trouble getting up and maybe it has been going on for a couple of days she reflects. But never had a problem like this. Some nights she gets up 3 times to urinate sometimes not. She had a BMP with a sugar of 300 she has had no previous history of diabetes. She has had a weight loss. She otherwise has no significant new changes or complaints. He is otherwise feeling well. [facility] Medical History (Updated 04/06/21 @ 12:18 by Daina Allen RN) Bunion of great toe of right foot Bunion of great toe of left foot Thyroid cancer Surgical History (Updated 04/06/21 @ 12:18 by Daina Allen RN) History of arthroscopic knee surgery H/O: hysterectomy History of thyroidectomy Social History household members: none Smoking Status: Never smoker alcohol intake: current Meds Home Medications and Allergies Home Medications Medication Instructions Recorded Confirmed Type calcium carbonate 400 mg/5 mL oral 400 mg PO DAILY 05/17/20 09/23/22 History suspension multivitamin 1 cap PO DAILY 05/17/20 09/23/22 History cholecalciferol (vitamin D3) 10 10 mcg PO DAILY 12/11/20 09/23/22 History mcg (400 unit) capsule zinc gluconate 10 mg lozenges 10 mg PO DAILY PRN head cold 12/11/20 09/23/22 History levothyroxine 100 mcg tablet 100 mcg PO DAILY 09/23/22 09/23/22 History (Synthroid) vitamin E (dl, acetate) PO DAILY 09/23/22 09/23/22 History dextroamphetamine-amphetamine ER 10 mg PO DAILY #30 caps 12/23/22 Rx 10 mg 24hr capsule,extend release Allergies Allergy/AdvReac Type Severity Reaction Status Date / Time No Known Drug Allergies Allergy Verified 09/23/22 14:36 Review of Systems Review of Systems Narrative: Negative except as above Exam Vital Signs (past 8 hours): - 01/26/24 13:19 01/26/24 14:47 01/26/24 15:39 Temperature 97.8 F Pulse Rate 96 H 77 72 Respiratory Rate 16 18 Blood Pressure 148/77 H 122/60 Pulse Oximetry 100 100 100 Oxygen Delivery Method Room Air Room Air 01/26/24 15:49 01/26/24 15:49 01/26/24 16:00 Temperature Pulse Rate 73 72 Respiratory Rate 12 13 Blood Pressure 148/71 H Pulse Oximetry 100 99 Oxygen Delivery Method Room Air 01/26/24 16:00 01/26/24 16:30 01/26/24 16:30 Temperature Pulse Rate 77 Respiratory Rate Blood Pressure 142/76 H 133/74 Pulse Oximetry 99 Oxygen Delivery Method 01/26/24 17:00 01/26/24 17:00 Temperature Pulse Rate 72 Respiratory Rate 20 Blood Pressure 128/71 Pulse Oximetry 98 Oxygen Delivery Method Room Air Oxygen Delivery Method Room Air Narrative Exam Narrative: Alert female smiling interactive in no acute distress mucous membranes mildly dry. Neck supple without adenopathy lungs are clear heart is regular rate and rhythm without murmurs clicks rubs or gallops. Abdomen is soft positive bowel sounds nontender extremities without cyanosis clubbing or edema. Neurologic exam is nonfocal and she is awake alert and responsive smiling psychologically appears normal Objective Labs 01/26/24 13:35 01/26/24 15:47 Labs: Laboratory Results - last 24 hr 01/26/24 01/26/24 01/26/24 13:35 13:38 14:24 WBC 6.9 RBC 5.15 Hgb 15.7 Hct 46.9 H MCV 91.2 MCH 30.4 MCHC 33.4 RDW 12.9 Plt Count 243 Neut % (Auto) 82.8 H Lymph % (Auto) 10.4 L [place] % (Auto) 6.2 Eos % (Auto) 0.2 L Baso % (Auto) 0.4 Neut # (Auto) 5700 Lymph # (Auto) 700 L [place] # (Auto) 400 Eos # (Auto) 0 Baso # (Auto) 0 PT 12.4 INR 1.1 APTT 27 VBG pH 7.26 L VBG pCO2 42.6 L VBG pO2 28 L VBG HCO3 19 L VBG Total CO2 20 L VBG O2 Saturation 44 L VBG Base Excess -8.0 L FiO2 20 Sodium 129 L Potassium 4.7 Chloride 94 L Carbon Dioxide 19 L BUN 18 H Creatinine 0.72 Estimated GFR > 60 BUN/Creatinine Ratio 25.0 H Glucose 575 H* Hemoglobin A1c 12.5 H Lactate 1.9 Calcium 11.1 H Phosphorus 4.2 H Magnesium 1.7 Total Bilirubin 1.4 H AST 27 ALT 29 Alkaline Phosphatase 168 H Total Creatine Kinase 50 Troponin I < 0.012 Total Protein 7.8 Albumin 5.0 Globulin 2.8 Albumin/Globulin Ratio 1.8 Lipase 120 TSH < 0.02 L Free T4 3.69 H Ketones 6.66 H 01/26/24 15:47 WBC RBC Hgb Hct MCV MCH MCHC RDW Plt Count Neut % (Auto) Lymph % (Auto) [place] % (Auto) Eos % (Auto) Baso % (Auto) Neut # (Auto) Lymph # (Auto) [place] # (Auto) Eos # (Auto) Baso # (Auto) PT INR APTT VBG pH VBG pCO2 VBG pO2 VBG HCO3 VBG Total CO2 VBG O2 Saturation VBG Base Excess FiO2 Sodium 130 L Potassium 4.8 Chloride 98 Carbon Dioxide 15 L BUN 16 Creatinine 0.52 Estimated GFR > 60 BUN/Creatinine Ratio 30.8 H Glucose 416 H D Hemoglobin A1c Lactate Calcium 10.0 Phosphorus Magnesium Total Bilirubin AST ALT Alkaline Phosphatase Total Creatine Kinase Troponin I Total Protein Albumin Globulin Albumin/Globulin Ratio Lipase TSH Free T4 Ketones Assessment & Plan Assessment & Plan narrative: DKA. Patient with elevated sugar of 575 positive ketones VBG 7.26 anion gap of 15. No evidence of infection on exam or labs. Or symptoms. Urine was normal. Chest x-ray normal. She otherwise has no other significant issues. Patient interestingly has never had a history diabetes. Although does have a family history. Otherwise there is no changes. We will begin DKA protocol she is 2 L fluids and then will go to 125. She is getting frequent follow-ups of electrolytes. Will consult tele ICU for help and guidance. Paroxysmal AFib. Patient has previously been on metoprolol. Will hold and restart tomorrow depending on how things go. Or if telehealth feels like she needs to have that. With no other changes. Anxiety. Will continue citalopram. Follow. Dehydration. Aggressive rehydration and follow. Hypokalemia. Aggressive follow although appears to be normal now. History of hyperkalemia. Will continue to follow and watch. No other changes. DVT prophylaxis on Lovenox. Code status full. Disposition. Will take some time before things change. 1 hour 20 minutes spent with patient discussing patient reviewing chart consult dictation orders.
[2024-01-26] MEDS: LACTATED RINGERS 500 ML 1000 ML IV (18:30)
[2024-01-26] MEDS: dilTIAZem 5 MG/ML SDV 10 MG IV (18:36)
[2024-01-26 18:39] LABS: Blood Urea Nitrogen 13 mg/dL (7-17); Calcium 9.9 mg/dL (8.4-10.2); Carbon Dioxide 19 mmol/L (22-32); Chloride 105 mmol/L (98-107); Estimated Glomerular Filt Rate > 60 mL/min (>60); Glucose 211 mg/dL (80-110); HEMOLYSIS 25 (0-50); Potassium 4.2 mmol/L (3.4-5.1); Sodium 134 mmol/L (137-145)
[2024-01-26 18:45] LABS: Fractionated Inspired Oxygen 21; HCO3 VBG 21 mmol/L (24-28); Oxygen Saturation VBG 48 % (70-75); PCO2 VBG 42.3 mmHg (45-50); PO2 VBG 29 mmHg (35-45); Total CO2 VBG 22 mmol/L (24-29)
[2024-01-26] MEDS: DEXTROSE 5%-0.45% NS 1,000 ML 88.5 ML IV (19:00)
--- NOTE | 2024-01-26 19:23 | PM.CN.EICU ---
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 She has been episodes of RVR since 07/2023, she did have couple during the day and in ICU HR reached 150s, back to sinus 60-70s after a bolus of Cardizem 10 mg IV & 500 ml of LR bolus. She has had no chest pain fevers chills abdominal pain urinary changes, headaches visual symptoms. Assessment: DKA ( new Dx DMII) Afib w RVR ( PAF) Initally hypercalcemia 2/2 dehydration Plan: IV insulin, IV fluid & electrolytes replacements, BMP, Mg & phos per DKA protocol Check trop Lovenox therapeutic dose Metoprolol 25 mg bid Pepcid for GI ppx ( full Ac) Trend Calcium level/ hold Ca supplement for tonight Cont synthroid/ dose adjustment per PCP Advance diabetic diet as tolerated CCT 40 min [facility] Medical History (Updated 01/26/24 @ 18:29 by Josi Singh PA-C) Bunion of great toe of right foot Bunion of great toe of left foot Thyroid cancer Surgical History (Updated 04/06/21 @ 12:18 by Daina Allen RN) History of arthroscopic knee surgery H/O: hysterectomy History of thyroidectomy Social History household members: none Smoking Status: Never smoker alcohol intake: current Current Medications Current Medications Medications: Home Medications calcium carbonate 400 mg/5 mL oral suspension 400 mg PO DAILY 05/17/20 [History Confirmed 09/23/22] multivitamin 1 cap PO DAILY 05/17/20 [History Confirmed 09/23/22] cholecalciferol (vitamin D3) 10 mcg (400 unit) capsule 10 mcg PO DAILY 12/11/20 [History Confirmed 09/23/22] zinc gluconate 10 mg lozenges 10 mg PO DAILY PRN head cold 12/11/20 [History Confirmed 09/23/22] levothyroxine 100 mcg tablet (Synthroid) 100 mcg PO DAILY 09/23/22 [History Confirmed 09/23/22] vitamin E (dl, acetate) PO DAILY 09/23/22 [History Confirmed 09/23/22] dextroamphetamine-amphetamine ER 10 mg 24hr capsule,extend release 10 mg PO DAILY #30 caps 12/23/22 [Rx] Visit Medications (administered) Generic Name Dose Route Start Last Admin Trade Name Taniya PRN Reason Stop Dose Admin Sodium Chloride 1,000 mls @ 500 mls/hr 01/26/24 15:30 01/26/24 17:45 Normal Saline 0.9% IV 02/25/24 17:29 0 mls/hr CONT FAHAD Infusion INSULIN DRIP PREMIX 100 unit in 100 mls @ 5.579 mls/hr 01/26/24 16:15 01/26/24 19:00 Myxredlin Drip Premix IV 0.05 unit/kg/hr TITRATE FAHAD 2.95 mls/hr Titration Protocol 0.1 UNIT/KG/HR Sodium Chloride 1,000 mls @ 125 mls/hr 01/26/24 20:00 01/26/24 19:04 Normal Saline 0.9% IV Not Given CONT FAHAD Exam Vital Signs (past 8 hours): - 01/26/24 13:19 01/26/24 14:47 01/26/24 15:39 Temperature 97.8 F Pulse Rate 96 H 77 72 Respiratory Rate 16 18 Blood Pressure 148/77 H 122/60 Pulse Oximetry 100 100 100 Oxygen Delivery Method Room Air Room Air 01/26/24 15:49 01/26/24 15:49 01/26/24 16:00 Temperature Pulse Rate 73 72 Respiratory Rate 12 13 Blood Pressure 148/71 H Pulse Oximetry 100 99 Oxygen Delivery Method Room Air 01/26/24 16:00 01/26/24 16:30 01/26/24 16:30 Temperature Pulse Rate 77 Respiratory Rate Blood Pressure 142/76 H 133/74 Pulse Oximetry 99 Oxygen Delivery Method 01/26/24 17:00 01/26/24 17:00 01/26/24 17:30 Temperature Pulse Rate 72 75 Respiratory Rate 20 15 Blood Pressure 128/71 Pulse Oximetry 98 99 Oxygen Delivery Method Room Air Room Air 01/26/24 17:30 01/26/24 18:36 Temperature Pulse Rate 148 H Respiratory Rate Blood Pressure 134/67 116/77 Pulse Oximetry Oxygen Delivery Method Oxygen Delivery Method Room Air Objective Labs 01/26/24 13:35 01/26/24 18:20 Labs: Laboratory Results - last 24 hr 01/26/24 01/26/24 01/26/24 13:35 13:38 14:24 WBC 6.9 RBC 5.15 Hgb 15.7 Hct 46.9 H MCV 91.2 MCH 30.4 MCHC 33.4 RDW 12.9 Plt Count 243 Neut % (Auto) 82.8 H Lymph % (Auto) 10.4 L [place] % (Auto) 6.2 Eos % (Auto) 0.2 L Baso % (Auto) 0.4 Neut # (Auto) 5700 Lymph # (Auto) 700 L [place] # (Auto) 400 Eos # (Auto) 0 Baso # (Auto) 0 PT 12.4 INR 1.1 APTT 27 VBG pH 7.26 L VBG pCO2 42.6 L VBG pO2 28 L VBG HCO3 19 L VBG Total CO2 20 L VBG O2 Saturation 44 L VBG Base Excess -8.0 L FiO2 20 Sodium 129 L Potassium 4.7 Chloride 94 L Carbon Dioxide 19 L BUN 18 H Creatinine 0.72 Estimated GFR > 60 BUN/Creatinine Ratio 25.0 H Glucose 575 H* Hemoglobin A1c 12.5 H Lactate 1.9 Calcium 11.1 H Phosphorus 4.2 H Magnesium 1.7 Total Bilirubin 1.4 H AST 27 ALT 29 Alkaline Phosphatase 168 H Total Creatine Kinase 50 Troponin I < 0.012 Total Protein 7.8 Albumin 5.0 Globulin 2.8 Albumin/Globulin Ratio 1.8 Lipase 120 TSH < 0.02 L Free T4 3.69 H Ketones 6.66 H 01/26/24 01/26/24 01/26/24 15:47 18:20 18:33 WBC RBC Hgb Hct MCV MCH MCHC RDW Plt Count Neut % (Auto) Lymph % (Auto) [place] % (Auto) Eos % (Auto) Baso % (Auto) Neut # (Auto) Lymph # (Auto) [place] # (Auto) Eos # (Auto) Baso # (Auto) PT INR APTT VBG pH 7.30 L VBG pCO2 42.3 L VBG pO2 29 L VBG HCO3 21 L VBG Total CO2 22 L VBG O2 Saturation 48 L VBG Base Excess -5.0 L FiO2 21 Sodium 130 L 134 L Potassium 4.8 4.2 Chloride 98 105 Carbon Dioxide 15 L 19 L BUN 16 13 Creatinine 0.52 0.42 L Estimated GFR > 60 > 60 BUN/Creatinine Ratio 30.8 H 31.0 H Glucose 416 H D 211 H D Hemoglobin A1c Lactate Calcium 10.0 9.9 Phosphorus Magnesium Total Bilirubin AST ALT Alkaline Phosphatase Total Creatine Kinase Troponin I Total Protein Albumin Globulin Albumin/Globulin Ratio Lipase TSH Free T4 Ketones
[2024-01-26] MEDS: MAGNESIUM SULFATE 2 GM/50 ML PIGGYBACK IV (19:48)
[2024-01-26 20:18] LABS: MRSA (Nasal) PCR NOT DETECTED (Not Detect)
[2024-01-26] MEDS: ENOXAPARIN 30 MG/0.3 ML SYRINGE SUBCUT (20:18)
[2024-01-26 20:34] LABS: Troponin I < 0.012 ng/mL (0.01-0.034)
[2024-01-26] MEDS: METOPROLOL IR 25 MG TABLET PO (21:08)
[2024-01-26 22:39] LABS: BUN Creatinine Ratio 27.3 (6-22); Blood Urea Nitrogen 12 mg/dL (7-17); Calcium 9.4 mg/dL (8.4-10.2); Carbon Dioxide 23 mmol/L (22-32); Chloride 107 mmol/L (98-107); Estimated Glomerular Filt Rate > 60 mL/min (>60); Glucose 236 mg/dL (80-110); HEMOLYSIS < 15 (0-50); Potassium 3.8 mmol/L (3.4-5.1); Sodium 132 mmol/L (137-145)
[2024-01-26 23:57] LABS: Appearance Urine UA CLEAR; Bilirubin Urine UA 1+ (NEGATIVE); Color Urine UA YELLOW; Glucose Urine UA 2+ g/dL (Negative); Ketones Urine UA 2+ (NEGATIVE); Leukocyte Esterase Urine UA NEGATIVE (NEGATIVE); Nitrite Urine UA NEGATIVE (Negative); Occult Blood Urine UA NEGATIVE (Negative); Protein Urine UA NEGATIVE (Negative); Specific Gravity Urine UA 1.025 (1.000-1.035); Urobilinogen Urine UA 0.2 E.U./dL (0.2)
[2024-01-27] VITALS (52 sets, daily range): BP systolic 103–133; BP diastolic 57–75; PULSE 61–119; RESP 12–38; TEMP 36.6–37.3; O2SAT 95–100
[2024-01-27 00:01] LABS: pH Urine UA 5.5 (4.5-8.0)
[2024-01-27 00:03] LABS: Bacteria Urine Occasional (0-1); RBC Urine 0-1/HPF (0-5/HPF); Squamous Epithelial Cell Urine 0-1 /HPF (0-5/HPF); Urine Volume 10mL (spun); WBC Urine 0-1/HPF (0-5/HPF)
[2024-01-27 00:05] LABS: Culture Indicated Urine Cult Not Indicated; Ictotest Urine Negative (Negative)
[2024-01-27] MEDS: POTASSIUM CHLORIDE IN WATER 10 MEQ/100 ML PIGGYBACK 100 MEQ IV ×5 (00:27→05:00)
[2024-01-27 03:15] LABS: BUN Creatinine Ratio 28.6 (6-22); Blood Urea Nitrogen 10 mg/dL (7-17); Calcium 9.5 mg/dL (8.4-10.2); Carbon Dioxide 25 mmol/L (22-32); Chloride 108 mmol/L (98-107); Estimated Glomerular Filt Rate > 60 mL/min (>60); Glucose 148 mg/dL (80-110); HEMOLYSIS < 15 (0-50); Potassium 4.3 mmol/L (3.4-5.1); Sodium 135 mmol/L (137-145)
[2024-01-27] MEDS: DEXTROSE 5%-0.45% NS 1,000 ML 88.5 ML IV (06:06)
[2024-01-27 06:49] LABS: Add Manual Diff / Slide Review NO; Basophils Absolute Auto 0 /uL (0-100); Basophils Percent Auto 0.7 % (0-2); Eosinophils Absolute Auto 100 /uL (0-450); Eosinophils Percent Auto 1.9 % (2-4); Hematocrit 38.9 % (36-46); Hemoglobin 13.3 g/dL (12.0-16.0); Lymphocytes Absolute Auto 2300 /uL (1100-4500); Lymphocytes Percent Auto 36.3 % (25-40); Mean Corpuscular HGB Conc 34.2 % (30-36); Mean Corpuscular Hemoglobin 30.2 PG (26-34); Mean Corpuscular Volume 88.5 fL (80-100); Monocytes Absolute Auto 600 /uL (0-900); Monocytes Percent Auto 9.8 % (3-14); Neutrophils Absolute Auto 3200 /uL (1500-7000); Neutrophils Percent Auto 51.3 % (50-75); Platelet Count 210 X10^3/uL (150-400); Red Cell Distribution Width 12.9 % (11.6-14.8); White Blood Cell Count 6.3 X10^3/uL (4.5-11.0)
[2024-01-27 07:01] LABS: BUN Creatinine Ratio 22.9 (6-22); Blood Urea Nitrogen 8 mg/dL (7-17); Calcium 9.8 mg/dL (8.4-10.2); Carbon Dioxide 23 mmol/L (22-32); Chloride 110 mmol/L (98-107); Estimated Glomerular Filt Rate > 60 mL/min (>60); Glucose 140 mg/dL (80-110); HEMOLYSIS < 15 (0-50); Potassium 4.4 mmol/L (3.4-5.1); Sodium 136 mmol/L (137-145)
[2024-01-27] MEDS: LEVOTHYROXINE 100 MCG TABLET PO (07:03)
[2024-01-27 07:44] LABS: Thyroid Stimulating Hormone < 0.015 uIU/mL (0.47-4.68)
--- NOTE | 2024-01-27 08:00 | DI.US.S_ITS ---
PROCEDURE: US ABDOMEN COMPLETE INDICATIONS: ELEVATED ALK PHOS TECHNIQUE: Real-time scanning was performed of the abdominal and retroperitoneal organs, with image documentation. COMPARISON: None. FINDINGS: Liver: The liver measures 15.4 cm in length and demonstrates normal echotexture. There is a subtle hyperechoic 1.5 x 0.8 x 0.9 cm lesion within the posterior right hepatic lobe Gallbladder: The gallbladder wall measures 1.1 mm in diameter. No stones, sludge, pericholecystic fluid, or sonographic Bruno sign. Biliary ducts: Intrahepatic bile ducts are non-dilated. Extrahepatic bile duct caliber measures 4.5 mm. Normal is 6-7 mm or less in diameter, or 10 mm or less post-cholecystectomy. Pancreas: Visualized portions of the pancreas are sonographically normal. Spleen: Spleen is normal in size and homogeneous in echotexture. Kidneys: Kidneys are normal in size and echotexture. Right kidney measures 11.9 cm long; left kidney measures 12.1 cm long. No hydronephrosis or nephrolithiasis. No solid masses. Aorta: Visualized aorta is normal in caliber at less than 3 cm. Iliacs: Proximal common iliac arteries are normal in caliber at less than 2.5 cm. IVC: Intrahepatic inferior vena cava is patent. Miscellaneous: No free abdominal fluid. IMPRESSION: 1. No cholelithiasis or findings to suggest choledocholithiasis or acute cholecystitis. 2. Small hyperechoic lesion within the liver suggesting the presence of a small hepatic hemangioma. Consider sonographic follow-up in 3-6 months to ensure stability of this finding. Alternatively, hepatic mass protocol CT or MRI could be used to further characterize findings. Dictated by: Nayana Pop M.D. on 01/27/2024 at 8:28 Approved by: Nayana Pop M.D. on 01/27/2024 at 8:31
--- NOTE | 2024-01-27 08:31 | PM.PN.1 ---
Subjective Subjective Interval history: Patient seen in follow-up of DKA. Patient overall feeling much better this morning. Energy is good. Slept well. Sugars are much improved. And she is looking better. No nausea no vomiting. Exam Vital Signs (past 8 hours): - 01/27/24 01:00 01/27/24 01:00 01/27/24 01:30 Temperature Pulse Rate 65 70 Respiratory Rate 15 21 Blood Pressure 124/68 Pulse Oximetry 97 Oxygen Delivery Method 01/27/24 01:31 01/27/24 01:31 01/27/24 02:00 Temperature Pulse Rate 72 65 Respiratory Rate 37 H 14 Blood Pressure 121/71 Pulse Oximetry 96 96 Oxygen Delivery Method 01/27/24 02:00 01/27/24 02:30 01/27/24 02:30 Temperature Pulse Rate 66 Respiratory Rate 13 Blood Pressure 113/64 118/61 Pulse Oximetry 95 Oxygen Delivery Method 01/27/24 03:00 01/27/24 03:00 01/27/24 03:30 Temperature Pulse Rate 65 66 Respiratory Rate 12 14 Blood Pressure 124/63 Pulse Oximetry 97 96 Oxygen Delivery Method 01/27/24 03:30 01/27/24 04:00 01/27/24 04:00 Temperature 98.3 F Pulse Rate 63 Respiratory Rate 14 Blood Pressure 123/68 123/69 Pulse Oximetry 97 Oxygen Delivery Method 01/27/24 04:00 01/27/24 04:30 01/27/24 05:00 Temperature Pulse Rate 63 65 Respiratory Rate 12 13 Blood Pressure Pulse Oximetry 98 97 Oxygen Delivery Method Room Air 01/27/24 05:04 01/27/24 05:04 01/27/24 05:30 Temperature Pulse Rate 63 66 Respiratory Rate 12 12 Blood Pressure 125/73 Pulse Oximetry 97 97 Oxygen Delivery Method 01/27/24 05:30 01/27/24 06:00 01/27/24 06:00 Temperature Pulse Rate 67 Respiratory Rate 13 Blood Pressure 121/74 127/75 Pulse Oximetry 98 Oxygen Delivery Method 01/27/24 07:00 01/27/24 07:30 01/27/24 08:00 Temperature Pulse Rate 66 69 71 Respiratory Rate 29 H 37 H 34 H Blood Pressure Pulse Oximetry 99 99 100 Oxygen Delivery Method Oxygen Delivery Method Room Air Oxygen Flow Rate 0 Narrative Exam Narrative: Alert female in no acute distress lungs are clear heart is regular rate and rhythm abdomen is soft positive bowel sounds nontender extremities normal mucous membranes moist Objective Labs 01/27/24 06:40 01/27/24 06:40 Labs: Laboratory Results - last 24 hr 01/26/24 01/26/24 01/26/24 13:35 13:38 14:24 WBC 6.9 RBC 5.15 Hgb 15.7 Hct 46.9 H MCV 91.2 MCH 30.4 MCHC 33.4 RDW 12.9 Plt Count 243 Neut % (Auto) 82.8 H Lymph % (Auto) 10.4 L [place] % (Auto) 6.2 Eos % (Auto) 0.2 L Baso % (Auto) 0.4 Neut # (Auto) 5700 Lymph # (Auto) 700 L [place] # (Auto) 400 Eos # (Auto) 0 Baso # (Auto) 0 PT 12.4 INR 1.1 APTT 27 VBG pH 7.26 L VBG pCO2 42.6 L VBG pO2 28 L VBG HCO3 19 L VBG Total CO2 20 L VBG O2 Saturation 44 L VBG Base Excess -8.0 L FiO2 20 Sodium 129 L Potassium 4.7 Chloride 94 L Carbon Dioxide 19 L BUN 18 H Creatinine 0.72 Estimated GFR > 60 BUN/Creatinine Ratio 25.0 H Glucose 575 H* Hemoglobin A1c 12.5 H Lactate 1.9 Calcium 11.1 H Phosphorus 4.2 H Magnesium 1.7 Total Bilirubin 1.4 H AST 27 ALT 29 Alkaline Phosphatase 168 H Total Creatine Kinase 50 Troponin I < 0.012 Total Protein 7.8 Albumin 5.0 Globulin 2.8 Albumin/Globulin Ratio 1.8 Lipase 120 TSH < 0.02 L Free T4 3.69 H Urine Color Urine Appearance Urine pH Ur Specific [place] Urine Protein Urine Glucose (UA) Urine Ketones Urine Occult Blood Urine Nitrate Urine Bilirubin Ur Bilirubin Confirm Urine Urobilinogen Ur Leukocyte Esterase Urine RBC Urine WBC Ur Squamous Epith Cells Urine Bacteria Ur Culture Indicated? Vol Urine Centrifuged Nasal Screen MRSA (PCR) Ketones 6.66 H 01/26/24 01/26/24 01/26/24 15:47 18:20 18:33 WBC RBC Hgb Hct MCV MCH MCHC RDW Plt Count Neut % (Auto) Lymph % (Auto) [place] % (Auto) Eos % (Auto) Baso % (Auto) Neut # (Auto) Lymph # (Auto) [place] # (Auto) Eos # (Auto) Baso # (Auto) PT INR APTT VBG pH 7.30 L VBG pCO2 42.3 L VBG pO2 29 L VBG HCO3 21 L VBG Total CO2 22 L VBG O2 Saturation 48 L VBG Base Excess -5.0 L FiO2 21 Sodium 130 L 134 L Potassium 4.8 4.2 Chloride 98 105 Carbon Dioxide 15 L 19 L BUN 16 13 Creatinine 0.52 0.42 L Estimated GFR > 60 > 60 BUN/Creatinine Ratio 30.8 H 31.0 H Glucose 416 H D 211 H D Hemoglobin A1c Lactate Calcium 10.0 9.9 Phosphorus Magnesium Total Bilirubin AST ALT Alkaline Phosphatase Total Creatine Kinase Troponin I Total Protein Albumin Globulin Albumin/Globulin Ratio Lipase TSH Free T4 Urine Color Urine Appearance Urine pH Ur Specific [place] Urine Protein Urine Glucose (UA) Urine Ketones Urine Occult Blood Urine Nitrate Urine Bilirubin Ur Bilirubin Confirm Urine Urobilinogen Ur Leukocyte Esterase Urine RBC Urine WBC Ur Squamous Epith Cells Urine Bacteria Ur Culture Indicated? Vol Urine Centrifuged Nasal Screen MRSA (PCR) Ketones 01/26/24 01/26/24 01/26/24 18:55 19:56 22:15 WBC RBC Hgb Hct MCV MCH MCHC RDW Plt Count Neut % (Auto) Lymph % (Auto) [place] % (Auto) Eos % (Auto) Baso % (Auto) Neut # (Auto) Lymph # (Auto) [place] # (Auto) Eos # (Auto) Baso # (Auto) PT INR APTT VBG pH VBG pCO2 VBG pO2 VBG HCO3 VBG Total CO2 VBG O2 Saturation VBG Base Excess FiO2 Sodium 132 L Potassium 3.8 Chloride 107 Carbon Dioxide 23 BUN 12 Creatinine 0.44 L Estimated GFR > 60 BUN/Creatinine Ratio 27.3 H Glucose 236 H Hemoglobin A1c Lactate Calcium 9.4 Phosphorus Magnesium Total Bilirubin AST ALT Alkaline Phosphatase Total Creatine Kinase Troponin I < 0.012 Total Protein Albumin Globulin Albumin/Globulin Ratio Lipase TSH Free T4 Urine Color Urine Appearance Urine pH Ur Specific [place] Urine Protein Urine Glucose (UA) Urine Ketones Urine Occult Blood Urine Nitrate Urine Bilirubin Ur Bilirubin Confirm Urine Urobilinogen Ur Leukocyte Esterase Urine RBC Urine WBC Ur Squamous Epith Cells Urine Bacteria Ur Culture Indicated? Vol Urine Centrifuged Nasal Screen MRSA (PCR) Not detected Ketones 01/26/24 01/27/24 01/27/24 23:10 02:57 06:40 WBC 6.3 RBC 4.40 Hgb 13.3 Hct 38.9 MCV 88.5 MCH 30.2 MCHC 34.2 RDW 12.9 Plt Count 210 Neut % (Auto) 51.3 D Lymph % (Auto) 36.3 D [place] % (Auto) 9.8 Eos % (Auto) 1.9 L Baso % (Auto) 0.7 Neut # (Auto) 3200 Lymph # (Auto) 2300 [place] # (Auto) 600 Eos # (Auto) 100 Baso # (Auto) 0 PT INR APTT VBG pH VBG pCO2 VBG pO2 VBG HCO3 VBG Total CO2 VBG O2 Saturation VBG Base Excess FiO2 Sodium 135 L 136 L Potassium 4.3 4.4 Chloride 108 H 110 H Carbon Dioxide 25 23 BUN 10 8 Creatinine 0.35 L 0.35 L Estimated GFR > 60 > 60 BUN/Creatinine Ratio 28.6 H 22.9 H Glucose 148 H 140 H Hemoglobin A1c Lactate 1.0 Calcium 9.5 9.8 Phosphorus Magnesium Total Bilirubin AST ALT Alkaline Phosphatase Total Creatine Kinase Troponin I Total Protein Albumin Globulin Albumin/Globulin Ratio Lipase TSH < 0.015 L Free T4 Urine Color Yellow Urine Appearance Clear Urine pH 5.5 Ur Specific [place] 1.025 Urine Protein Negative Urine Glucose (UA) 2+ H Urine Ketones 2+ H Urine Occult Blood Negative Urine Nitrate Negative Urine Bilirubin 1+ H Ur Bilirubin Confirm Negative Urine Urobilinogen 0.2 Ur Leukocyte Esterase Negative Urine RBC 0-1/hpf Urine WBC 0-1/hpf Ur Squamous Epith Cells 0-1 /hpf Urine Bacteria Occasional (0-1) Ur Culture Indicated? Cult not indicated Vol Urine Centrifuged 10ml (spun) Nasal Screen MRSA (PCR) Ketones [facility] Medical History (Updated 01/26/24 @ 18:29 by Josi Singh PA-C) Bunion of great toe of right foot Bunion of great toe of left foot Thyroid cancer Surgical History (Updated 04/06/21 @ 12:18 by Daina Allen RN) History of arthroscopic knee surgery H/O: hysterectomy History of thyroidectomy Social History household members: none Smoking Status: Never smoker alcohol intake: current Assessment & Plan Assessment & Plan narrative: DKA. Much improved. Anion gap 3. Looking quite a bit better. Appreciate tele ICU input. No other changes. Going to switch to insulin today. Subcu. Sliding scale. Feed. Discontinue fluids and watch carefully. Will see how things go. Dietitian consult and will go from there. No other changes. Rechecked later this afternoon. We will continue to check potassium in 4 hours with BMP. But things have been stable. Paroxysmal atrial fibrillation. Patient has been in and out. Back on her metoprolol. Will see how she does. She has been stable as an outpatient. 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 Patient had a free T4 over 3. Will discontinue her 200 mcg which what she has been taking at home and go to 150. This could have had a significant influence on multiple things along with her weight loss. We may have to go even further down will see what happens. Recheck in 6 weeks. Dehydration. Appears to be resolved. With hydration. Hypokalemia stable. DVT prophylaxis on Lovenox Code status full Disposition. Will check later this afternoon but seems to be doing well. 55 minutes spent with patient nurse reviewing documents. Dictation orders. Quality VTE Deep Vein Thrombosis/Pulmonary Embolism Present on Admission: No
[2024-01-27] MEDS: CITALOPRAM 10 MG TABLET PO (08:45)
[2024-01-27] MEDS: ENOXAPARIN 30 MG/0.3 ML SYRINGE SUBCUT (08:45)
[2024-01-27] MEDS: INSULIN GLARGINE 100 UNIT/ML 3ML PEN 12 UNIT SUBCUT ×2 (08:45→20:25)
[2024-01-27] MEDS: INSULIN LISPRO 100 UNIT/ML 3ML VIAL SUBCUT ×4 (08:46→20:26)
[2024-01-27] MEDS: METOPROLOL IR 25 MG TABLET PO ×2 (08:49→20:24)
--- NOTE | 2024-01-27 09:44 | PM.PN.EICU ---
Subjective Subjective IF CAMERA ACTIVATED, patient seen via real-time interactive audiovisual communication: Camera activated Consent obtained for tele-mechanical meter tester care: Yes Patient Location: ICU Provider location (State): [place] Other participants/roles: bedside nursing team Interval history: no acute vents overnight Current Medications Current Medications Medications: Home Medications calcium carbonate 400 mg/5 mL oral suspension 400 mg PO DAILY 05/17/20 [History Confirmed 01/26/24] multivitamin 1 cap PO DAILY 05/17/20 [History Confirmed 01/26/24] cholecalciferol (vitamin D3) 10 mcg (400 unit) capsule 10 mcg PO DAILY 12/11/20 [History Confirmed 01/26/24] levothyroxine 100 mcg tablet (Synthroid) 100 mcg PO DAILY 09/23/22 [History Confirmed 01/26/24] vitamin E (dl, acetate) 1 softgel PO DAILY 09/23/22 [History Confirmed 01/26/24] dextroamphetamine-amphetamine ER 10 mg 24hr capsule,extend release 10 mg PO DAILY #30 caps 12/23/22 [Rx Confirmed 01/26/24] Visit Medications (administered) Generic Name Dose Route Start Last Admin Trade Name Freq PRN Reason Stop Dose Admin Citalopram Hydrobromide 10 mg 01/27/24 09:00 01/27/24 08:45 Citalopram 10 Mg Tablet PO 10 mg DAILY FAHAD Administration Famotidine 20 mg 01/27/24 09:00 01/27/24 08:55 Famotidine 20 Mg Tablet PO Not Given DAILY FAHAD Sodium Chloride 1,000 mls @ 500 mls/hr 01/26/24 15:30 01/26/24 17:45 Normal Saline 0.9% IV 02/25/24 17:29 0 mls/hr CONT FAHAD Infusion INSULIN DRIP PREMIX 100 unit in 100 mls @ 5.579 mls/hr 01/26/24 16:15 01/27/24 08:18 Myxredlin Drip Premix IV 0 unit/kg/hr TITRATE FAHAD 0 mls/hr Titration Protocol 0.1 UNIT/KG/HR Sodium Chloride 1,000 mls @ 125 mls/hr 01/26/24 20:00 01/26/24 19:04 Normal Saline 0.9% IV Not Given CONT FAHAD Dextrose/Sodium Chloride 1,000 mls @ 88.5 mls/hr 01/26/24 19:15 01/27/24 08:20 Dextrose 5%-0.45% Ns IV 0 mls/hr CONT FAHAD Infusion Insulin Human Lispro 0 unit 01/27/24 08:30 01/27/24 08:46 Insulin Lispro 100 Unit/Ml 3ml Vial SUBCUT 2 unit ACHS FAHAD Administration Protocol Metoprolol Tartrate 25 mg 01/26/24 21:00 01/27/24 08:49 Metoprolol Ir 25 Mg Tablet PO 25 mg BID FAHAD Administration Objective Labs 01/27/24 06:40 01/27/24 06:40 Labs: Laboratory Results - last 24 hr 01/26/24 01/26/24 01/26/24 13:35 13:38 14:24 WBC 6.9 RBC 5.15 Hgb 15.7 Hct 46.9 H MCV 91.2 MCH 30.4 MCHC 33.4 RDW 12.9 Plt Count 243 Neut % (Auto) 82.8 H Lymph % (Auto) 10.4 L [place] % (Auto) 6.2 Eos % (Auto) 0.2 L Baso % (Auto) 0.4 Neut # (Auto) 5700 Lymph # (Auto) 700 L [place] # (Auto) 400 Eos # (Auto) 0 Baso # (Auto) 0 PT 12.4 INR 1.1 APTT 27 VBG pH 7.26 L VBG pCO2 42.6 L VBG pO2 28 L VBG HCO3 19 L VBG Total CO2 20 L VBG O2 Saturation 44 L VBG Base Excess -8.0 L FiO2 20 Sodium 129 L Potassium 4.7 Chloride 94 L Carbon Dioxide 19 L BUN 18 H Creatinine 0.72 Estimated GFR > 60 BUN/Creatinine Ratio 25.0 H Glucose 575 H* Hemoglobin A1c 12.5 H Lactate 1.9 Calcium 11.1 H Phosphorus 4.2 H Magnesium 1.7 Total Bilirubin 1.4 H AST 27 ALT 29 Alkaline Phosphatase 168 H Total Creatine Kinase 50 Troponin I < 0.012 Total Protein 7.8 Albumin 5.0 Globulin 2.8 Albumin/Globulin Ratio 1.8 Lipase 120 TSH < 0.02 L Free T4 3.69 H Urine Color Urine Appearance Urine pH Ur Specific [place] Urine Protein Urine Glucose (UA) Urine Ketones Urine Occult Blood Urine Nitrate Urine Bilirubin Ur Bilirubin Confirm Urine Urobilinogen Ur Leukocyte Esterase Urine RBC Urine WBC Ur Squamous Epith Cells Urine Bacteria Ur Culture Indicated? Vol Urine Centrifuged Nasal Screen MRSA (PCR) Ketones 6.66 H 01/26/24 01/26/24 01/26/24 15:47 18:20 18:33 WBC RBC Hgb Hct MCV MCH MCHC RDW Plt Count Neut % (Auto) Lymph % (Auto) [place] % (Auto) Eos % (Auto) Baso % (Auto) Neut # (Auto) Lymph # (Auto) [place] # (Auto) Eos # (Auto) Baso # (Auto) PT INR APTT VBG pH 7.30 L VBG pCO2 42.3 L VBG pO2 29 L VBG HCO3 21 L VBG Total CO2 22 L VBG O2 Saturation 48 L VBG Base Excess -5.0 L FiO2 21 Sodium 130 L 134 L Potassium 4.8 4.2 Chloride 98 105 Carbon Dioxide 15 L 19 L BUN 16 13 Creatinine 0.52 0.42 L Estimated GFR > 60 > 60 BUN/Creatinine Ratio 30.8 H 31.0 H Glucose 416 H D 211 H D Hemoglobin A1c Lactate Calcium 10.0 9.9 Phosphorus Magnesium Total Bilirubin AST ALT Alkaline Phosphatase Total Creatine Kinase Troponin I Total Protein Albumin Globulin Albumin/Globulin Ratio Lipase TSH Free T4 Urine Color Urine Appearance Urine pH Ur Specific [place] Urine Protein Urine Glucose (UA) Urine Ketones Urine Occult Blood Urine Nitrate Urine Bilirubin Ur Bilirubin Confirm Urine Urobilinogen Ur Leukocyte Esterase Urine RBC Urine WBC Ur Squamous Epith Cells Urine Bacteria Ur Culture Indicated? Vol Urine Centrifuged Nasal Screen MRSA (PCR) Ketones 01/26/24 01/26/24 01/26/24 18:55 19:56 22:15 WBC RBC Hgb Hct MCV MCH MCHC RDW Plt Count Neut % (Auto) Lymph % (Auto) [place] % (Auto) Eos % (Auto) Baso % (Auto) Neut # (Auto) Lymph # (Auto) [place] # (Auto) Eos # (Auto) Baso # (Auto) PT INR APTT VBG pH VBG pCO2 VBG pO2 VBG HCO3 VBG Total CO2 VBG O2 Saturation VBG Base Excess FiO2 Sodium 132 L Potassium 3.8 Chloride 107 Carbon Dioxide 23 BUN 12 Creatinine 0.44 L Estimated GFR > 60 BUN/Creatinine Ratio 27.3 H Glucose 236 H Hemoglobin A1c Lactate Calcium 9.4 Phosphorus Magnesium Total Bilirubin AST ALT Alkaline Phosphatase Total Creatine Kinase Troponin I < 0.012 Total Protein Albumin Globulin Albumin/Globulin Ratio Lipase TSH Free T4 Urine Color Urine Appearance Urine pH Ur Specific [place] Urine Protein Urine Glucose (UA) Urine Ketones Urine Occult Blood Urine Nitrate Urine Bilirubin Ur Bilirubin Confirm Urine Urobilinogen Ur Leukocyte Esterase Urine RBC Urine WBC Ur Squamous Epith Cells Urine Bacteria Ur Culture Indicated? Vol Urine Centrifuged Nasal Screen MRSA (PCR) Not detected Ketones 01/26/24 01/27/24 01/27/24 23:10 02:57 06:40 WBC 6.3 RBC 4.40 Hgb 13.3 Hct 38.9 MCV 88.5 MCH 30.2 MCHC 34.2 RDW 12.9 Plt Count 210 Neut % (Auto) 51.3 D Lymph % (Auto) 36.3 D [place] % (Auto) 9.8 Eos % (Auto) 1.9 L Baso % (Auto) 0.7 Neut # (Auto) 3200 Lymph # (Auto) 2300 [place] # (Auto) 600 Eos # (Auto) 100 Baso # (Auto) 0 PT INR APTT VBG pH VBG pCO2 VBG pO2 VBG HCO3 VBG Total CO2 VBG O2 Saturation VBG Base Excess FiO2 Sodium 135 L 136 L Potassium 4.3 4.4 Chloride 108 H 110 H Carbon Dioxide 25 23 BUN 10 8 Creatinine 0.35 L 0.35 L Estimated GFR > 60 > 60 BUN/Creatinine Ratio 28.6 H 22.9 H Glucose 148 H 140 H Hemoglobin A1c Lactate 1.0 Calcium 9.5 9.8 Phosphorus Magnesium Total Bilirubin AST ALT Alkaline Phosphatase Total Creatine Kinase Troponin I Total Protein Albumin Globulin Albumin/Globulin Ratio Lipase TSH < 0.015 L Free T4 Urine Color Yellow Urine Appearance Clear Urine pH 5.5 Ur Specific [place] 1.025 Urine Protein Negative Urine Glucose (UA) 2+ H Urine Ketones 2+ H Urine Occult Blood Negative Urine Nitrate Negative Urine Bilirubin 1+ H Ur Bilirubin Confirm Negative Urine Urobilinogen 0.2 Ur Leukocyte Esterase Negative Urine RBC 0-1/hpf Urine WBC 0-1/hpf Ur Squamous Epith Cells 0-1 /hpf Urine Bacteria Occasional (0-1) Ur Culture Indicated? Cult not indicated Vol Urine Centrifuged 10ml (spun) Nasal Screen MRSA (PCR) Ketones Exam Vital Signs (past 8 hours): - 01/27/24 02:00 01/27/24 02:00 01/27/24 02:30 Temperature Pulse Rate 65 66 Respiratory Rate 14 13 Blood Pressure 113/64 Pulse Oximetry 96 95 Oxygen Delivery Method 01/27/24 02:30 01/27/24 03:00 01/27/24 03:00 Temperature Pulse Rate 65 Respiratory Rate 12 Blood Pressure 118/61 124/63 Pulse Oximetry 97 Oxygen Delivery Method 01/27/24 03:30 01/27/24 03:30 01/27/24 04:00 Temperature Pulse Rate 66 63 Respiratory Rate 14 14 Blood Pressure 123/68 Pulse Oximetry 96 97 Oxygen Delivery Method 01/27/24 04:00 01/27/24 04:00 01/27/24 04:30 Temperature 98.3 F Pulse Rate 63 Respiratory Rate 12 Blood Pressure 123/69 Pulse Oximetry 98 Oxygen Delivery Method Room Air 01/27/24 05:00 01/27/24 05:04 01/27/24 05:04 Temperature Pulse Rate 65 63 Respiratory Rate 13 12 Blood Pressure 125/73 Pulse Oximetry 97 97 Oxygen Delivery Method 01/27/24 05:30 01/27/24 05:30 01/27/24 06:00 Temperature Pulse Rate 66 67 Respiratory Rate 12 13 Blood Pressure 121/74 Pulse Oximetry 97 98 Oxygen Delivery Method 01/27/24 06:00 01/27/24 07:00 01/27/24 07:30 Temperature Pulse Rate 66 69 Respiratory Rate 29 H 37 H Blood Pressure 127/75 Pulse Oximetry 99 99 Oxygen Delivery Method 01/27/24 08:00 01/27/24 08:00 01/27/24 08:30 Temperature 98.1 F Pulse Rate 71 81 Respiratory Rate 34 H 36 H Blood Pressure Pulse Oximetry 100 99 Oxygen Delivery Method 01/27/24 08:50 01/27/24 08:50 01/27/24 09:00 Temperature Pulse Rate 74 73 Respiratory Rate 31 H 24 Blood Pressure 123/69 Pulse Oximetry 98 98 Oxygen Delivery Method Oxygen Delivery Method Room Air Oxygen Flow Rate 0 Quality TeleICU VTE Deep Vein Thrombosis/Pulmonary Embolism Present on Admission: No Assessment & Plan Assessment & Plan narrative: 68 year old female admitted to ICU with DKA AFIB suggest -DKA protocol -ag closed can start logn acting insulin -work up for cause of DM -rate control with meotprolol, AC per primary team -should check echo -monitor ins/outs -replace lytes prn -goal glucose 140-180s -gi/dvt ppx -please call eICU if condition changes
--- NOTE | 2024-01-27 10:12 | PC.NURSE ---
Addendum entered by Leilani Benoit R.N. 01/27/24 18:22: Did comprehensive patient education regarding atrial fibrillation and importance of anticoagulation and the following DM topics: -risk factors -diabetes complications and precautions -signs and symptoms of hyperglycemia and hypoglycemia -when to contact the doctor/go to the ER -diet and exercise -when and how to check blood glucose -normal blood glucose ranges and severely abnormal blood glucose levels - what to do with significantly high or low blood sugars -diabetes basics and pathophysiology -how to administer insulin via syringe and insulin pen -types of insulin, when to give rapid acting (with food) and side effects -what to do when sick/not tolerating PO -Hgb A1C - what the lab is and how to interpret Original Note: In am after shift change when labs resulted, RN calculated anion gap based on am labs and spoke with primary provider regarding stopping insulin gtt and starting subcutaneous insulin with breakfast. Provider wanted to consult with tele-ICU provider before proceeding. Tele-ICU provider said ok to turn off insulin drip and fluids and start subcutaneous insulin - ACHS lispro sliding scale and lantus. Provider said ok to wait until next BMP and replace potassium as needed from 1030 BMP.
[2024-01-27 11:11] LABS: Blood Urea Nitrogen 9 mg/dL (7-17); Calcium 9.5 mg/dL (8.4-10.2); Carbon Dioxide 23 mmol/L (22-32); Chloride 107 mmol/L (98-107); Estimated Glomerular Filt Rate > 60 mL/min (>60); Glucose 404 mg/dL (80-110); HEMOLYSIS < 15 (0-50); Potassium 4.5 mmol/L (3.4-5.1); Sodium 131 mmol/L (137-145)
--- NOTE | 2024-01-27 14:40 | DIET.CONS ---
Dietary Consultation Note Admission Date: 01/26/2024 15:11 Assessment: 68 y F admitted for DKA. New onset of diabetes. Nutrition consulted for educ. Met with pt at bedside. Reports medication changes to her thyroid medication resulted in weight loss beginning in May 2023. Per pharmacy further testing to dx type of diabetes is being completed. Ht: 170.18 cm Wt: 59 kg BMI: 20.3 UBW: 63.64 kg per pt in May 2023 (-7% weight loss in 8-9 months, non-severe) Last BM: 01/27/24 (01/27/24 12:33) MNA: 9 Neil Score: 21 Diet: 01/27/24 Lunch Carbohydrate Consistent Diet Diet Modifications: Carbohydrate level: Large (4 CHO) Reflex DM orders: No Food Texture: Level 7 - Regular Liquid Consistency: Level 0 - Thin 01/27/24 Dinner Carbohydrate Consistent Diet Diet Modifications: Carbohydrate level: Medium (3 CHO) Reflex DM orders: No Food Texture: Level 7 - Regular Liquid Consistency: Level 0 - Thin Nutrition Percent Meal Consumed 100% 01/27/24 13:17 Labs: RBC 4.40 X10^6/uL (4.0-5.2) 01/27/24 06:40 Hgb 13.3 g/dL (12.0-16.0) 01/27/24 06:40 Hct 38.9 % (36-46) 01/27/24 06:40 Creatinine 0.36 mg/dL (0.52-1.04) L 01/27/24 10:35 Hemoglobin A1c 12.5 % (4.0-6.0) H 01/26/24 13:35 Lactate 1.0 mmol/L (0.7-2.1) 01/27/24 06:40 Nutrition Diagnosis: Nutrition related knowledge deficit r/t no previous educ as evidence by pt with new onset of diabetes Interventions: 1. Provided certified adapted physical educator information 2. Overview of MNT for diabetes - including educ on macros with help of RN Monitoring/Evaluations: f/u prn Electronically Signed by: Kinga Lundy 01/27/24 14:40 Clinical Dietitian [address] [address]
--- NOTE | 2024-01-27 16:22 | CM.DANOTE ---
Brief DCP Assessment Note Pt is a 68yo F here following new onset diabetes, here with DKA. PCP Luis Alfredo ALBERT and Medicare A only PRE OWNED SALES MANAGER reviewed EMR. Per chart review, pt lives alone in [place]. Has son Gino (p [phone]) and friend Maryam ( p [phone]) listed as emergency contacts. 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 Per chart review, pt has lost 20lbs since May 2023 unintentionally, pt believes it is from changes in thyroid medication. Per dietary consult note, diabetes education provided. Per RN, pt had questions about her insurance and what her insurance authorizes/grants her access to. Dietary in room during attempted DCP assessment. Due to triaging needs, PRE OWNED SALES MANAGER unable to meet with pt today. Per chart review, other than questions about access to diabetes management equip, no obvious CM needs identified. Plan: anticipate home when medically stable, potentially Wed 01/27. CM team will follow closely. JORDAN Garrido Discharge Planning/Care Management CM Discharge Assessment Start: 01/27/24 16:20 Freq: Status: Active Protocol: Document 01/27/24 16:20 (Rec: 01/27/24 16:22 [id number]) Discharge Planning Assessment Assigned Band Attacher JORDAN Thakur Advance Directives? No History Provided By Patient Prior Living Arrangements Apartment/Condo Household Members none Willing to Return to Facility? Yes Independent with ADL's Yes Is patient alert and oriented? Yes Discharge Plan Home Whiteboard Updated in Patient Room with No name and ext. # of Band Attacher Review Status In Process Please Provide Date Initial DC 01/27/24 Assessment Was Performed Next Review Type Continued Stay Review
[2024-01-28] VITALS (28 sets, daily range): BP systolic 109–126; BP diastolic 58–73; PULSE 55–141; RESP 11–43; TEMP 35.7–37.2; O2SAT 96–98
[2024-01-28 04:43] LABS: BUN Creatinine Ratio 37.5 (6-22); Blood Urea Nitrogen 12 mg/dL (7-17); Calcium 9.8 mg/dL (8.4-10.2); Carbon Dioxide 31 mmol/L (22-32); Chloride 107 mmol/L (98-107); Estimated Glomerular Filt Rate > 60 mL/min (>60); Glucose 135 mg/dL (80-110); HEMOLYSIS < 15 (0-50); Potassium 3.5 mmol/L (3.4-5.1); Sodium 138 mmol/L (137-145)
[2024-01-28 04:46] LABS: Add Manual Diff / Slide Review NO; Basophils Absolute Auto 0 /uL (0-100); Basophils Percent Auto 0.9 % (0-2); Eosinophils Absolute Auto 100 /uL (0-450); Eosinophils Percent Auto 3.1 % (2-4); Hematocrit 36.5 % (36-46); Hemoglobin 12.3 g/dL (12.0-16.0); Lymphocytes Absolute Auto 1900 /uL (1100-4500); Lymphocytes Percent Auto 42.6 % (25-40); Mean Corpuscular HGB Conc 33.8 % (30-36); Mean Corpuscular Hemoglobin 30.2 PG (26-34); Mean Corpuscular Volume 89.2 fL (80-100); Monocytes Absolute Auto 400 /uL (0-900); Monocytes Percent Auto 8.7 % (3-14); Neutrophils Absolute Auto 2000 /uL (1500-7000); Neutrophils Percent Auto 44.7 % (50-75); Platelet Count 188 X10^3/uL (150-400); Red Blood Cell Count 4.09 X10^6/uL (4.0-5.2); Red Cell Distribution Width 13.5 % (11.6-14.8); White Blood Cell Count 4.4 X10^3/uL (4.5-11.0)
[2024-01-28] MEDS: LEVOTHYROXINE 100 MCG TABLET 150 MCG PO (06:26)
[2024-01-28] MEDS: INSULIN LISPRO 100 UNIT/ML 3ML VIAL SUBCUT ×4 (08:32→20:41)
[2024-01-28] MEDS: INSULIN GLARGINE 100 UNIT/ML 3ML PEN 12 UNIT SUBCUT ×2 (08:41→20:41)
[2024-01-28] MEDS: ENOXAPARIN 40 MG/0.4 ML SYRINGE SUBCUT (08:48)
[2024-01-28] MEDS: METOPROLOL IR 25 MG TABLET PO ×2 (08:48→20:08)
[2024-01-28] MEDS: CITALOPRAM 10 MG TABLET PO (08:48)
[2024-01-28] MEDS: FAMOTIDINE 20 MG TABLET PO (08:48)
--- NOTE | 2024-01-28 09:02 | PM.PN.1 ---
Subjective Subjective Interval history: Patient seen in follow-up DKA new onset diabetes atrial fibrillation hypertension. Patient overall feeling well today just overwhelmed. Has just started learning her diabetic information. How to use insulin. It does not feel like she can do this at home. She does have support. With no other changes. Nurses and dietitian's have been helping her. No other changes. No chest pain no shortness for breath Exam Vital Signs (past 8 hours): - 01/28/24 01:30 01/28/24 02:00 01/28/24 02:30 Temperature Pulse Rate 64 55 L 60 Respiratory Rate 12 12 11 L Blood Pressure Pulse Oximetry Oxygen Flow Rate 01/28/24 03:00 01/28/24 03:30 01/28/24 04:00 Temperature Pulse Rate 61 58 L 58 L Respiratory Rate 18 14 12 Blood Pressure Pulse Oximetry Oxygen Flow Rate 01/28/24 04:16 01/28/24 04:16 01/28/24 08:00 Temperature 98.9 F 97.7 F Pulse Rate 57 L 63 Respiratory Rate 18 18 Blood Pressure 124/62 126/73 Pulse Oximetry 98 98 Oxygen Flow Rate 0 0 Oxygen Delivery Method Room Air Oxygen Flow Rate 0 Narrative Exam Narrative: Alert smiling female in no acute distress lungs are clear heart is regular rate and rhythm abdomen is soft positive bowel sounds nontender Objective Labs 01/28/24 04:18 01/28/24 04:18 Labs: Laboratory Results - last 24 hr 01/27/24 01/28/24 10:35 04:18 WBC 4.4 L RBC 4.09 Hgb 12.3 Hct 36.5 MCV 89.2 MCH 30.2 MCHC 33.8 RDW 13.5 Plt Count 188 Neut % (Auto) 44.7 L Lymph % (Auto) 42.6 H Wright % (Auto) 8.7 Eos % (Auto) 3.1 Baso % (Auto) 0.9 Neut # (Auto) 2000 Lymph # (Auto) 1900 Wright # (Auto) 400 Eos # (Auto) 100 Baso # (Auto) 0 Sodium 131 L 138 Potassium 4.5 3.5 Chloride 107 107 Carbon Dioxide 23 31 BUN 9 12 Creatinine 0.36 L 0.32 L Estimated GFR > 60 > 60 BUN/Creatinine Ratio 25.0 H 37.5 H Glucose 404 H D 135 H D Calcium 9.5 9.8 PFSH Medical History (Updated 01/26/24 @ 18:29 by Josi Singh PA-C) Bunion of great toe of right foot Bunion of great toe of left foot Thyroid cancer Surgical History (Updated 04/06/21 @ 12:18 by Daina Allen, CRIS) History of arthroscopic knee surgery H/O: hysterectomy History of thyroidectomy Social History household members: none Smoking Status: Never smoker alcohol intake: current Assessment & Plan Assessment & Plan narrative: DKA. Seems to be resolved. Seems to be doing well. No treatment at this time. New onset type 2 diabetes possible type 1A. Appreciate pharmacist input and labs were ordered. Will need to complete workup as outpatient. Either way we will continue to educate. Discussed extensively today. Difference between the different insulin and how to adjust and how to use. Will continue with nursing in dietitian support. One more day and should be able to discharge. ADD. Patient is not intaking as much information as she feels like she could. Will restart her ADD medicine and follow from there. Hyperthyroidism. Patient has been on 200 mcg at home. Will go to 150 she is definitely hyperthyroidism which is over treatment and will be needed to decrease and follow closely. Will recheck in 6 weeks. May need to decrease even further. We will follow as outpatient. Paroxysmal atrial fibrillation. Stable. Will continue usual metoprolol at home. Restart her aspirin. And she will be seeing Cardiology in the near future. Hypokalemia stable. No evidence of significant issue will recheck 1 more time tomorrow. Code status full. Disposition. Patient will be discharged home probably in a.m.. Hopefully will have enough education at that time to where she is comfortable. I will see her next week. We will proceed from there. Quality VTE Deep Vein Thrombosis/Pulmonary Embolism Present on Admission: No
[2024-01-28] MEDS: ASPIRIN EC 81 MG TABLET PO (09:42)
[2024-01-28] MEDS: POTASSIUM CHLORIDE 20 MEQ TAB 40 MEQ PO (09:45)
[2024-01-28 10:36] LABS: Ionized Calcium 5.3 mg/dL (4.5-5.6)
--- NOTE | 2024-01-28 11:11 | CM.DPNOTE ---
ALANP Cont Reviewed chart. Patient discussed in multidisciplinary rounds. Patient has been transitioned off the drip today to lantus. Dr Healy is considering patient for discharge home later today. CM team following closely; per chart review, patient may have questions about her insurance as it relates to DME and diabetic supplies. Will plan to follow up with patient about this before her discharge. JYOTI
[2024-01-28] MEDS: DEXTROAMPHETAMINE AMPHETAMINE 10 MG 10 EACH PO (12:38)
[2024-01-29 01:00] VITALS: BP 119/61; PULSE 72; RESP 16; TEMP 36.7; O2SAT 97
[2024-01-29 05:00] VITALS: BP 116/67; PULSE 81; RESP 20; TEMP 36.8; O2SAT 95
[2024-01-29] MEDS: LEVOTHYROXINE 100 MCG TABLET 150 MCG PO (06:19)
[2024-01-29 06:29] LABS: Alanine Aminotransferase 26 IU/L (<35); Albumin 3.1 g/dL (3.5-5.0); Albumin Globulin Ratio 1.5 (1.0-2.8); Alkaline Phosphatase 92 U/L (38-126); Aspartate Aminotransferase 34 IU/L (14-36); BUN Creatinine Ratio 46.7 (6-22); Bilirubin Total 0.7 mg/dL (0.2-1.3); Blood Urea Nitrogen 14 mg/dL (7-17); Calcium 9.8 mg/dL (8.4-10.2); Carbon Dioxide 30 mmol/L (22-32); Chloride 104 mmol/L (98-107); Estimated Glomerular Filt Rate > 60 mL/min (>60); Globulin 2.1 g/dL (1.7-4.1); Glucose 165 mg/dL (80-110); HEMOLYSIS 23 (0-50); Potassium 4.2 mmol/L (3.4-5.1); Sodium 136 mmol/L (137-145); Total Protein 5.2 g/dL (6.3-8.2)
[2024-01-29] MEDS: DEXTROAMPHETAMINE AMPHETAMINE 10 MG 10 EACH PO (07:36)
[2024-01-29 08:00] VITALS: BP 117/70; PULSE 66; RESP 16; TEMP 36.8; O2SAT 100
[2024-01-29] MEDS: INSULIN GLARGINE 100 UNIT/ML 3ML PEN 12 UNIT SUBCUT (08:31)
[2024-01-29] MEDS: INSULIN LISPRO 100 UNIT/ML 3ML VIAL SUBCUT ×2 (08:32→12:50)
[2024-01-29] MEDS: ASPIRIN EC 81 MG TABLET PO (08:50)
[2024-01-29] MEDS: CITALOPRAM 10 MG TABLET PO (08:50)
[2024-01-29] MEDS: FAMOTIDINE 20 MG TABLET PO (08:50)
[2024-01-29] MEDS: ENOXAPARIN 40 MG/0.4 ML SYRINGE SUBCUT (08:51)
[2024-01-29] MEDS: METOPROLOL IR 25 MG TABLET PO (08:51)
--- NOTE | 2024-01-29 10:38 | DIET.CONS2 ---
Dietary Inpatient Consultation Note Admission Date: 01/26/2024 15:11 Nutrition f/u for new dx of diabetes. Met with pt again to address her nutrition related questions around carbs, sugar sweetened beverages, and low blood sugar. F/u prn. Diet: 01/27/24 Dinner Carbohydrate Consistent Diet Diet Modifications: Carbohydrate level: Medium (3 CHO) Reflex DM orders: No Food Texture: Level 7 - Regular Liquid Consistency: Level 0 - Thin Nutrition Percent Meal Consumed 100% 01/28/24 18:00 Percent Meal Consumed 100% 01/28/24 13:10 Percent Meal Consumed 100% 01/28/24 09:00 Percent Meal Consumed 100% 01/27/24 18:00 Percent Meal Consumed 100% 01/27/24 13:17 Electronically Signed by: Kinga Lundy 01/29/24 10:38 Clinical Dietitian [address] [address]
--- NOTE | 2024-01-29 12:32 | P.DS_ITS ---
History of Present Illness History of Present Illness Date Patient Seen: 01/29/24 Time Patient Seen: 11:00 Chief complaint: AFIB, dizziness, eyesight problem Narrative: CC: DKA Feeling better, education is complete she is feeling more confident discussed discharge planning will send meds and glucometer through outside EMR. eating and ambulating well. Discharge Providers Provider Date of admission: 01/26/24 15:11 Discharge Date: 01/29/24 Primary care physician: Johan Lobato MD Consults: 01/27/24 08:40 Consult to Dietitian, Adult Routine Comment: Reason For Exam: new onset diabetes Discharge provider: Leo Healy MD Summary Hospital Course Discharge Diagnosis: #DKA #new diagnosis type 2 diabetes possible type 1A. #ADD #Hyperthyroidism #Paroxysmal atrial fibrillation. #Hypokalemia Hospital Course: Presented in acute DKA without prior diagnosis of diabetes. Responded well to treatment with insulin and learned insulin and glucometer drill with nurses. Extensive education and practice she has got the general gist - will continue insulin outpatient and consider transition to other oral meds there. Exam Vital Signs (past 8 hours): - 01/29/24 05:00 01/29/24 08:00 Temperature 98.3 F 98.2 F Pulse Rate 81 66 Respiratory Rate 20 16 Blood Pressure 116/67 117/70 Pulse Oximetry 95 100 Oxygen Flow Rate 0 0 Oxygen Delivery Method Room Air Oxygen Flow Rate 0 Narrative Exam Narrative: alert conversant sitting up in bed Resp Other: clear to auscultation bilaterally Cardio Other: regular rate and rhythm, S1/S2 GI Other: soft nontender active bowel sounds Neuro Other: alert and oriented x3, cranial nerves 2-12 grossly intact moving all limbs Extrem Other: no pedal edema Objective Labs 01/28/24 04:18 01/29/24 04:15 Labs: Laboratory Results - last 24 hr 01/29/24 04:15 Sodium 136 L Potassium 4.2 Chloride 104 Carbon Dioxide 30 BUN 14 Creatinine 0.30 L Estimated GFR > 60 BUN/Creatinine Ratio 46.7 H Glucose 165 H Calcium 9.8 Total Bilirubin 0.7 AST 34 ALT 26 Alkaline Phosphatase 92 D Total Protein 5.2 L Albumin 3.1 L Globulin 2.1 Albumin/Globulin Ratio 1.5 [facility] Medical History (Updated 01/26/24 @ 18:29 by Josi Singh PA-C) Bunion of great toe of right foot Bunion of great toe of left foot Thyroid cancer Surgical History (Updated 04/06/21 @ 12:18 by Daina Allen RN) History of arthroscopic knee surgery H/O: hysterectomy History of thyroidectomy Social History household members: none Smoking Status: Never smoker alcohol intake: current Discharge Assessment & Plan Assessment and Plan Assessment: #DKA Resolved s/p treatment. first incident. #new diagnosis type 2 diabetes possible type 1A. completes nursing and diet teaching. Will continue on basal bolus insulin for now with SSI premeal. to F/up as outpt with BG log. #ADD improved learning on her home meds #Hyperthyroidism Agree with decreased levothyroxine dose - afib seems to be happening less #Paroxysmal atrial fibrillation. Stable. Will continue usual metoprolol at home. Restart her aspirin. And she will be seeing Cardiology in the near future. Will revisit in outpatient setting she is not interested in eliquis at this time. #Hypokalemia Resolved Code status: full PCP: Bhaskar Lobato Dispo: dc home to f/up as outpt Discharge Plan Discharge Plan Patient Disposition: Home Provider Discharge Comment: off work this and next week Discharge orders & Medications Prescriptions: Continued multivitamin Capsule 1 cap PO DAILY calcium carbonate 400 mg/5 mL suspension 400 mg PO DAILY levothyroxine [Synthroid] 100 mcg tablet 100 mcg PO DAILY cholecalciferol (vitamin D3) 10 mcg (400 unit) capsule 10 mcg PO DAILY vitamin E (dl, acetate) 1 softgel PO DAILY dextroamphetamine-amphetamine 10 mg capsule,extended release 24hr 10 mg PO DAILY Qty: 30 0RF Follow up/Referrals: Johan Lobato MD [Primary Care Provider] - Visit Report/Discharge Packet Instructions: DI for Atrial Fibrillation, DI for Diabetes Type 2, DI for Hypoglycemia, DI for Hyperglycemia -- Adult, How to Use an Insulin Pen Stand Alone Forms: Patient Portal/API, Stroke Signs & Symptoms Discharge Data Primary Care Provider: Johan Lobato Quality VTE Deep Vein Thrombosis/Pulmonary Embolism Present on Admission: No
--- NOTE | 2024-01-29 13:09 | PC.NURSE ---
Addendum entered by Arnie Mosher R.N. 01/29/24 15:04: Final discharge teaching completed with patient. She plans to leave hospital to go home, shredder picker prescriptions and glucometer supplies tonight when ready, and make appointment for follow up next week with Dr. Connolly's office. She says she has to stop by his office to drop off some paperwork. Patient has no other questions at this time, escorted out via wheelchair with all her belongings by HAT CONE INSPECTOR. Original Note: Patient met with tool and gauge inspector this morning again. Was able to demonstrate safe self insulin administration with this RN with her morning insulin doses. Discharge instructions and home handouts reviewed with patient. Patient has many questions, and each new instruction spurs a new train of thought or question. Patient does state understanding of insulin administration, blood glucose monitoring, and signs and symptoms to watch for. Patient states understanding for need to follow up next week with her PCP and schedule appointment with outpatient clinical document improvement educator. Dr. Funes states that all prescriptions for medications and supplies will be sent from his office.
--- NOTE | 2024-01-29 13:48 | CM.DPNOTE ---
DC Note Discharge home today, close outpatient follow up recommended. Patient has received initial diabetic teaching from RN and dietary and will need to follow up with Maude Pool, joiner apprentice, for ongoing education and support. Information provided by Kinga Lundy, inpatient overhead irrigator. Dr Healy plans to prescribe and order, as needed, any diabetic DME and supplies. No needs identified from this CM team. Patient independent in all aspects. JW
== END 2024-01-29 15:05 | disposition home or self-care (01) | DRG 638 ==
LOC: ED 14:02 → AC 15:12 → ICU 18:08
PROVIDERS: Emergency Medicine; Family Medicine; Internal Medicine Critical Care Medicine; Admitting Provider Family Medicine; Emergency Provider Student in an Organized Health Care Education/Training Program; PCP Family Medicine; Referring Provider Student in an Organized Health Care Education/Training Program; Visit Provider Family Medicine
DX: E11.10 Type 2 diabetes mellitus with ketoacidosis without coma (principal); E87.1 Hypo-osmolality and hyponatremia; I48.0 Paroxysmal atrial fibrillation; F41.9 Anxiety disorder, unspecified; E86.0 Dehydration; E05.90 Thyrotoxicosis, unspecified without thyrotoxic crisis or storm; E87.6 Hypokalemia; F98.8 Other specified behavioral and emotional disorders with onset usually occurring in childhood and adolescence
CPT/HCPCS: 36415; 36592; 71045; 76700; 80048; 80053; 81001; 81003; 82009; 82330; 82550; 82805; 82962; 83036; 83605; 83690; 83735; 84100; 84439; 84443; 84484; 85025; 85610; 85730; 86337; 86341; 87797; 93005; 96365; 96366; 99284; A9270; J1650; J1815; J3475

== ENCOUNTER → 2024-02-07 12:37 | Outpatient (CLI) | payer OTHER, SELFPAY ==
[2024-01-26 15:15] VITALS: BMI 20.3
--- NOTE | 2024-02-07 12:41 | DI.CT.S_ITS ---
PROCEDURE: CT ABDOMEN LIVER PROTOCOL INDICATIONS: Liver mass TECHNIQUE: 4 phase scanning was performed. Non-contrast 5 mm axial sections acquired from the diaphragm to the iliac crests. Following the administration of intravenous contrast, 5 mm thick arterial-phase, portal venous-phase, and 5-minute delayed phase images were acquired through the liver. 5 mm thick coronal and sagittal reformats were performed. For radiation dose reduction, the following was used: automated exposure control, adjustment of mA and/or kV according to patient size. COMPARISON: , , US ABDOMEN COMPLETE, 01/27/2024, 7:45. FINDINGS: Image quality: Excellent. Lower chest: Unremarkable. ABDOMEN: Liver: The liver demonstrates normal size and homogeneous enhancement. The portal vein is patent. The hepatic veins are patent. The hepatic artery is patent. A hypodense lesion within the portal venous phase is visualized within the superior aspect of hepatic segment VII (series 5/image 10). On the delayed phase images this region is isodense to the surrounding hepatic parenchyma. This may represent the 8 mm hyperechoic focus visualized in the right hepatic lobe on the comparison ultrasound dated January 27, 2024. Gallbladder: No radiopaque gallstones or wall thickening. Biliary ducts: No biliary dilation. Pancreas: No ductal dilation. Spleen: Size is within normal limits. Adrenal Glands: No adrenal nodules. Kidneys and Ureters: No hydronephrosis. No solid mass. No complex renal cystic lesion which requires follow up. Stomach and Bowel: Normal colonic caliber, without significant wall thickening. Peritoneum: No abnormal intraperitoneal fluid. No free air. Ventral Wall: No hernia. Abdominal Nodes: No retroperitoneal or mesenteric adenopathy by size criteria. Vessels: Aorta and inferior vena cava are normal in size. PELVIS: Pelvic Organs: Unremarkable. Bladder: Unremarkable. Pelvic Nodes: No enlarged lymph nodes. Miscellaneous: No inguinal hernias are seen. Bones: No aggressive osseous abnormality. IMPRESSION: 1. Sonographic and CT findings most consistent with a right hepatic hemangioma. No further follow-up recommended. 2. No acute intra-abdominal findings. No suspicious mass lesions. Dictated by: Nayana Pop M.D. on 02/07/2024 at 20:32 Approved by: Nayana Pop M.D. on 02/07/2024 at 20:38
== END ==
PROVIDERS: PCP Family Medicine; Referring Provider Family Medicine; Visit Provider Family Medicine
DX: R16.0 Hepatomegaly, not elsewhere classified (principal)
CPT/HCPCS: 74170; Q9967

== ENCOUNTER → 2024-03-16 14:56 | Outpatient (CLI) | payer OTHER, SELFPAY ==
[2024-01-26 15:15] VITALS: BMI 20.3
--- NOTE | 2024-03-30 13:42 | DIAB.INIT ---
Initial Diabetes Education Assessment Name: Natalia Russ Date: 03/16/24 Time: 305-4p Dx: Type I Diabetes Provider: Luis Alfredo Fisher presents for initial visit. DKA hospital admission 01/2024. Currently treating T1 with MDI and CGM therapies. Needing pathophysiology and hypoglycemia tx education. Reports not eating at work due to lack of time. Has had a low of 48mg/dl, which resulted in shakiness. wants to know when to take insulin. Self-Monitoring Blood Glucose: TIR: 7% very high 26% high 66% in range <1% low <1% very low avmg/dl std dev: 52 mg/dl GMI 7.3% 31.6% variation Diabetes Medications: SSI Novolog (highest has been 6u) Basaglar 6u BID Pertinent Labs: HgA1c: 12.5% 01/2024 Past Medical History: (This Medical Record has been edited. Action required.) Bunion of great toe of left foot Bunion of great toe of right foot Thyroid cancer Intervention: This participant was very receptive. Provided appropriate educational handouts. Discussed the following topics: Completed intake assessment. Discussed barriers to care. Pathophysiology of type 1 diabetes HgA1c, its correlation to blood glucose numbers, and rationale for goal Blood sugar goals Insulin types, action, when to take, precautions Rule of 15 tx for lows Importance of small freq meals/snacks Diabetes technology: CGM, pump therapy General recommended servings for carbohydrates at meals and snacks Created SMART goals for patient self-care and success. Goals: Take mealtime insulin 5-15 min prior to meal Take evening basal prior to bed Practice Rule of 15 for lows Follow-up: [facility] follow-up in 2-3 weeks Maude Pool RDN, MONSERRAT Certified Diabetes Care and Director Physical P: [phone] Thank you for this referral
== END ==
PROVIDERS: PCP Family Medicine; Referring Provider Family Medicine
DX: E10.9 Type 1 diabetes mellitus without complications (principal); Z71.3 Dietary counseling and surveillance
CPT/HCPCS: G0108

== ENCOUNTER → 2024-04-02 07:57 | Outpatient (CLI) | payer OTHER, SELFPAY ==
[2024-01-26 15:15] VITALS: BMI 20.3
--- NOTE | 2024-04-22 17:52 | DIAB.FU ---
Follow-up Diabetes Education Assessment Name: Natalia Russ Date: 04/02/24 Time: 8-9p Dx: Type I Diabetes Provider: Luis Alfredo Fisher presents for follow-up visit. Currently using SSI, which is resulting in elevations after meals due to no coverage for carb intake. For example, may wake with in goal BG which would require no correction, then eats a bagel and BG goes up to 300mg/dl. Has questions about endocrinology resources. Needing additional education about injection technique and locations. Self-Monitoring Blood Glucose: Improved time in range with goal of 70% met, but still having quite a few elevations after meals. Today TIR: 6% very high 20% high 73% in range <1% low <1% very low avmg/dl std dev: 54 mg/dl GMI 6.9% 36% variation Last Visit TIR: 7% very high 26% high 66% in range <1% low <1% very low avmg/dl std dev: 52 mg/dl GMI 7.3% 31.6% variation Diabetes Medications: SSI Novolog (highest has been 6u) Basaglar 6u BID Pertinent Labs: HgA1c: 12.5% 01/2024 Past Medical History: (This Medical Record has been edited. Action required.) Bunion of great toe of left foot Bunion of great toe of right foot Thyroid cancer Intervention: This participant was very receptive. Provided appropriate educational handouts. Discussed the following topics: Injection technique and locations: abdomen and/or thighs Endo resources: closest endo is at [facility], potential for pump therapy I:C ratio with correction-- will start with 1:15 ratio for meals with 1:50 correction Created SMART goals for patient self-care and success. Goals: Take mealtime insulin 5-15 min prior to meal- met Take evening basal prior to bed- met Practice Rule of 15 for lows- continue Try I:C ratio- new Follow-up: [facility] follow-up 1 week for nutrition therapy. Maude Pool RDN, MONSERRAT Certified Diabetes Care and Health Assessment And Treatment Teacher P: [phone] Thank you for this referral
== END ==
LOC: DIET 07:58
PROVIDERS: PCP Family Medicine; Referring Provider Family Medicine
DX: E11.9 Type 2 diabetes mellitus without complications (principal); Z71.3 Dietary counseling and surveillance
CPT/HCPCS: G0108

== ENCOUNTER → 2024-04-07 16:33 | Outpatient (CLI) | payer OTHER, SELFPAY ==
[2024-01-26 15:15] VITALS: BMI 20.3
--- NOTE | 2024-04-22 17:59 | DIAB.MNT ---
Initial Diabetes Medical Nutrition Therapy Assessment Name: Natalia Russ Date: 04/07/24 Time: 440-540p Dx: Type I Diabetes Provider: Luis Alfredo Fisher presents for first MNT visit. Has been using I:C of 1:15 with correction. Feels confident with this so far. Needing some review of nutrition recs. Diet Recall: 7a: 1 bagel with 2 eggs and 1TBS honey with whipped butter OR bagel sandwich with egg 1p: 1TBS honey with PB sandwich on orowheat oat bread 5-7p: protein and veggies and Flour tortilla (21g) OR salad OR chicken risotto and veg sn: nothing or vanilla pudding with berries water 21oz or less, tea 1c coffee 1c sometimes snacks include steven, tomatoes, pretzel thins Anthropometrics: Ht: 67 Wt: 135# reported Weight history: UBW of 152# pre diagnosis Physical Activity: PT 1x per week for back Self-Monitoring Blood Glucose: Improved time in range with goal of >70% met. Fewer BG over 250mg/dl. Also improved glucose variation since last visit. Today TIR: 4% very high 20% high 75% in range <1% low <1% very low avmg/dl std dev: 50 mg/dl GMI 6.9% 33.5% variation Last Visit TIR: 6% very high 20% high 73% in range <1% low <1% very low avmg/dl std dev: 54 mg/dl GMI 6.9% 36% variation Diabetes Medications: 1:15 Novolog ratio with 1:50 correction Basaglar 6u BID Pertinent Labs: HgA1c: 12.5% 01/2024 Past Medical History: (This Medical Record has been edited. Action required.) Bunion of great toe of left foot Bunion of great toe of right foot Thyroid cancer Nutrition Rx: Carbohydrates: Meal:30-45g Snack:15-30g Nutrition Diagnosis: - Nutrition and food related knowledge deficit r/t no previous mnt aeb new dx T1DM and diet recall Intervention: This participant was very receptive. Provided appropriate educational handouts. Discussed the following topics: Completed intake assessment. Discussed barriers to care. Plate Method, impact of macronutrients on blood sugar, meal timing, carbohydrate counting, pairing macronutrients and spreading out carbohydrates for better blood glucose management Recommended servings for carbohydrates at meals and snacks Brainstormed appropriate meal plan based on food preferences Role of physical activity Fluid recs and role in Dm management Created SMART goals for patient self-care and success. Goals: Try I:C ratio- met Aim for 30-45g CHO at meals Pair CHO and protein- new Aim for 45-50oz water per day- new If having dessert wait three hours after meal with CHO- new Follow-up: [facility] follow-up in 3-4 weeks Maude Pool RDN, MONSERRAT Certified Diabetes Care and Application Integration Engineer P: [phone] Thank you for this referral
== END ==
PROVIDERS: PCP Family Medicine; Referring Provider Family Medicine
DX: E11.9 Type 2 diabetes mellitus without complications (principal); Z71.3 Dietary counseling and surveillance; Z68.20 Body mass index [BMI] 20.0-20.9, adult
CPT/HCPCS: 97802

== ENCOUNTER → 2024-05-12 10:52 | Outpatient (CLI) | payer OTHER, SELFPAY ==
[2024-01-26 15:15] VITALS: BMI 20.3
--- NOTE | 2024-06-02 17:23 | DIAB.FU ---
Follow-up Diabetes Education Assessment Name: Natalia Russ Date: 05/12/24 Time: 1110a-1210p Dx: Type I Diabetes Provider: Luis Alfredo Fisher presents Dm follow-up. Has been using I:C of 1:15 with correction. Double checking evening lows, which is often a compression low. May have a low BG once per week. Aiming for 30-40g CHO at meals. Pairing CHO and proteins. Improving water intake and skipping dessert lately. Worries about lows on her upcoming vacation. Has her sister and son joining on vacation and wanting them to connect to her CGM. Needing review of Rule of 15 and carb counting per report. Anthropometrics: Ht: 67 Wt: 135# reported Weight history: UBW of 152# pre diagnosis Physical Activity: PT 1x per week for back Self-Monitoring Blood Glucose: Improved TIR, but increased lows. Today TIR: 1% very high 9% high 87% in range 2% low 1% very low avmg/dl std dev: 41 mg/dl GMI 6.3% 32.3% variation Last Visit TIR: 4% very high 20% high 75% in range <1% low <1% very low avmg/dl std dev: 50 mg/dl GMI 6.9% 33.5% variation Diabetes Medications: 1:15 Novolog ratio with 1:50 correction Basaglar 6u BID Pertinent Labs: HgA1c: 12.5% 01/2024 Past Medical History: (This Medical Record has been edited. Action required.) Bunion of great toe of left foot Bunion of great toe of right foot Thyroid cancer Nutrition Rx: Carbohydrates: Meal:30-45g Snack:15-30g Nutrition Diagnosis: - Nutrition and food related knowledge deficit r/t no previous mnt aeb new dx T1DM and diet recall Intervention: This participant was very receptive. Provided appropriate educational handouts. Discussed the following topics: Completed intake assessment. Discussed barriers to care. Treatment of lows with rule of [address]/CDCES messaged provider about glucagon rx Encouraged eating q 3-4 hours Provided online resources for carb counting Provided education on DexCellCentric Follow yousif for family to follow BG Reviewed BG trends and strategies Created SMART goals for patient self-care and success. Goals: Aim for 30-45g CHO at meals- met Pair CHO and protein- met Aim for 45-50oz water per day- met If having dessert wait three hours after meal with CHO- NA Use resources for CHO counting- new Eat q 3-4 hours- new Have family download Dexcom Follow yousif- new Follow-up: TRAVIS GERMAN follow-up in 3-4 weeks Maude Pool RDN, MONSERRAT Certified Diabetes Care and Acquisition Cost Estimator P: [phone] Thank you for this referral
== END ==
LOC: DIET 10:53
PROVIDERS: PCP Family Medicine; Referring Provider Family Medicine
DX: E10.9 Type 1 diabetes mellitus without complications (principal); Z71.3 Dietary counseling and surveillance
CPT/HCPCS: G0108

== ENCOUNTER → 2024-06-02 16:00 | Outpatient (CLI) | payer OTHER, SELFPAY ==
[2024-01-26 15:15] VITALS: BMI 20.3
--- NOTE | 2024-06-02 17:17 | DIAB.FU ---
Addendum entered by Maude Pool 06/17/24 17:03: Natalia called due to Covid infection impacting her BG. Waking with BG 160mg/dl or more. Often in the 200-300 after eating. Wants to know what to do with BG. Currently: Basaglar 8u AM 10u PM Usually: 0-6u BID Plan: Try 10u BID for two days Friday if over 150mg/dl fasting increase to 11u BID Friday if over 150mg/dl fasting increase to 12u BID If ever hypoglycemic when waking (under 70mg/dl) reduce basal insulin to 0-6u BID Follow-up next week. Original Note: Follow-up Diabetes Education Assessment Name: Natalia Russ Date: 06/02/24 Time: 405-5p Dx: Type I Diabetes Provider: Luis Alfredo Fisher presents follow-up DM visit, accompanied by sister Terry. Has been using I:C of 1:15 with correction. Has been using online resources for carb counting. Eating q 3-4 hours. Implementing protein/carb paired snacks, ie apple/pb. Brought sister today since they are going on a cruise, and sister can aid in potential low BG. Picked up glucagon. Sister has questions about what to do if she is low, should she be eating carbs, how can they connect her CGM to sister's phone. Lost one CGM sensor early due to peeling off. Anthropometrics: Ht: 67 Wt: 135# reported Weight history: UBW of 152# pre diagnosis Physical Activity: PT 1x per week for back Self-Monitoring Blood Glucose: Continued improved TIR and less lows than last visit. Today TIR: 1% very high 9% high 89% in range 1% low <1% very low avmg/dl std dev: 37 mg/dl GMI 6.5% 27.7% variation Last Visit TIR: 1% very high 9% high 87% in range 2% low 1% very low avmg/dl std dev: 41 mg/dl GMI 6.3% 32.3% variation Diabetes Medications: 1:15 Novolog ratio with 1:50 correction Basaglar 3-6u BID Pertinent Labs: HgA1c: 12.5% 01/2024 Past Medical History: (This Medical Record has been edited. Action required.) Bunion of great toe of left foot Bunion of great toe of right foot Thyroid cancer Nutrition Rx: Carbohydrates: Meal:30-45g Snack:15-30g Nutrition Diagnosis: - Nutrition and food related knowledge deficit r/t no previous mnt aeb new dx T1DM and diet recall Intervention: This participant was very receptive. Provided appropriate educational handouts. Discussed the following topics: Review of Rule of 15 and glucagon use Connecting Dexcom Share for lows on sister's phone Replacement resource for CGM sensor lost Stacking insulin and dosing for dessert on vacation ETOH impact on BG Created SMART goals for patient self-care and success. Goals: Use carb counting resources- met Eat q 3-4 hours- met Family download Dexcom Follow yousif- met Call Dexcom for replacement sensor- new Be conscious of ETOH intake and lows- new Dose insulin without stacking for dessert- new Follow-up: [facility] follow-up in 3-4 weeks Maude Pool RDN, MONSERRAT Certified Diabetes Care and Construction Analyst P: [phone] Thank you for this referral
== END ==
LOC: DIET 16:01
PROVIDERS: PCP Family Medicine; Referring Provider Family Medicine
DX: E11.9 Type 2 diabetes mellitus without complications (principal); Z79.4 Long term (current) use of insulin; Z71.3 Dietary counseling and surveillance
CPT/HCPCS: G0108

== ENCOUNTER → 2024-06-23 08:55 | Outpatient (CLI) | payer OTHER, SELFPAY ==
[2024-01-26 15:15] VITALS: BMI 20.3
--- NOTE | 2024-08-03 10:34 | DIAB.MNTFU ---
Follow-up Diabetes Medical Nutrition Therapy Assessment Name: Natalia Russ Date: 06/23/24 Time: 6-025a Dx: Type I Diabetes Provider: Luis Alfredo Fisher presents Dm follow-up. Has been using I:C of 1:15 with correction of 1:50. Has some questions for endo visit, scheduled on 08/06, including how to dose when sick, She did see elevations when she had covid. Also questions regarding glucagon and expiration, and insulin pump. Reports recent hgA1c of 6.1% with PCP. Carb counting appropriately using an yousif per report. Noticed some elevations in BG during cruise trip. Overall, tried to make healthy choices on her trip while also enjoying herself. Anthropometrics: Ht: 67 Wt: 135# reported previous visit Weight history: UBW of 152# pre diagnosis Physical Activity: PT 1x per week for back Self-Monitoring Blood Glucose: Reduced lows since last visit, though time in range under goal of 70% or more. Today TIR: 7% very high 29% high 64% in range 0% low <1% very low avmg/dl std dev: 53 mg/dl GMI 7.2% 32.7% variation Last Visit TIR: 1% very high 9% high 87% in range 2% low 1% very low avmg/dl std dev: 41 mg/dl GMI 6.3% 32.3% variation Diabetes Medications: 1:15 Novolog ratio with 1:50 correction Basaglar 6u Pertinent Labs: HgA1c: 12.5% 01/2024 6.1% 06/2024 reported Past Medical History: (This Medical Record has been edited. Action required.) Bunion of great toe of left foot Bunion of great toe of right foot Thyroid cancer Nutrition Rx: Carbohydrates: Meal:30-45g Snack:15-30g Nutrition Diagnosis: - Nutrition and food related knowledge deficit r/t no previous mnt aeb new dx T1DM and diet recall- improved Intervention: This participant was very receptive. Provided appropriate educational handouts. Discussed the following topics: Treatment of lows with rule of 15 vs glucagon Encouraged eating q 3-4 hours Review of carb counting Reviewed BG trends and strategies Encouraged discussion with endo about pump therapy and sick day recommendations Reviewed general sick day recs with insulin changes and nutrition recs Created SMART goals for patient self-care and success. Goals: Use resources for CHO counting- met Eat q 3-4 hours- in progress Have family download Dexcom Follow yousif- met Discuss sick day and pump options with endo- new Follow-up: TRAVIS GERMAN follow-up in 4-6 weeks after endo visit Maude Pool RDN, MONSERRAT Certified Diabetes Care and Customer Service Advocate P: [phone] Thank you for this referral
== END ==
PROVIDERS: PCP Family Medicine; Referring Provider Family Medicine
DX: E10.9 Type 1 diabetes mellitus without complications (principal); Z71.3 Dietary counseling and surveillance; Z68.20 Body mass index [BMI] 20.0-20.9, adult
CPT/HCPCS: 97803

== ENCOUNTER → 2024-09-15 14:54 | Outpatient (CLI) | payer OTHER, SELFPAY ==
[2024-01-26 15:15] VITALS: BMI 20.3
--- NOTE | 2024-10-22 11:54 | DIAB.MNTFU ---
Follow-up Diabetes Medical Nutrition Therapy Assessment Name: Natalia Russ Date: 09/15/24 Time: 3-4p Dx: Type I Diabetes Provider: Luis Alfredo Fisher presents Dm follow-up. Plans to complete lab work for endo, including c peptide. Feels as though keeping a food log is helpful but has not been doing this lately. Did not discuss sick day care or pump with endo. had a very severe low on Friday and tx with glucose tabs. States lows occur when going too long without eating. States her G7 is not connected to endo. Having some elevations after eating bagel at breakfast most mornings. Using 1:15 I:C and correction 1:50 Anthropometrics: Ht: 67 Wt: 135# reported previous visit Weight history: UBW of 152# pre diagnosis Physical Activity: PT 1x per week for back Self-Monitoring Blood Glucose: Improved time in range but also increase in lows. Today TIR: 2% very high 14% high 82% in range 2% low <1% very low avmg/dl Last Visit TIR: 7% very high 29% high 64% in range 0% low <1% very low avmg/dl std dev: 53 mg/dl GMI 7.2% 32.7% variation Diabetes Medications: 1:15 Novolog ratio with 1:50 correction Basaglar 6u Pertinent Labs: HgA1c: 12.5% 01/2024 6.1% 06/2024 reported Past Medical History: (This Medical Record has been edited. Action required.) Bunion of great toe of left foot Bunion of great toe of right foot Thyroid cancer Nutrition Rx: Carbohydrates: Meal:30-45g Snack:15-30g Nutrition Diagnosis: - Nutrition and food related knowledge deficit r/t no previous mnt aeb new dx T1DM and diet recall- in progress Intervention: This participant was very receptive. Provided appropriate educational handouts. Discussed the following topics: Treatment of lows with rule of 15 review Insulin titration for higher CHO meals Meal timing to avoid lows Different insulin pump options Connecting to clarity with endo Created SMART goals for patient self-care and success. Goals: Use resources for CHO counting- met Eat q 3-4 hours- in progress Have family download Dexcom Follow yousif- met Discuss sick day and pump options with endo- in progress Ask endo for their clinic code for clarity- new message endo about insulin pump- new Eat q 3-4 hours- new Increase to 6u for bagel breakfast- new Follow-up: TRAVIS GERMAN follow-up in 3-4 weeks Maude Pool RDN, ANASTASIAES Certified Diabetes Care and It Project Coordinator P: [phone] Thank you for this referral
== END ==
PROVIDERS: PCP Family Medicine; Referring Provider Family Medicine
DX: E10.9 Type 1 diabetes mellitus without complications (principal); Z79.4 Long term (current) use of insulin
CPT/HCPCS: 97803

== ENCOUNTER → 2024-09-15 16:16 | Outpatient (CLI) | payer OTHER, SELFPAY ==
[2024-01-26 15:15] VITALS: BMI 20.3
[2024-09-15 17:30] LABS: Add Manual Diff / Slide Review NO; Basophils Absolute Auto 100 /uL (0-100); Basophils Percent Auto 1.3 % (0-2); Eosinophils Absolute Auto 100 /uL (0-450); Eosinophils Percent Auto 1.3 % (2-4); Hematocrit 47.3 % (36-46); Hemoglobin 15.5 g/dL (12.0-16.0); Lymphocytes Absolute Auto 1300 /uL (1100-4500); Lymphocytes Percent Auto 28.3 % (25-40); Mean Corpuscular HGB Conc 32.8 % (30-36); Mean Corpuscular Hemoglobin 31.2 PG (26-34); Mean Corpuscular Volume 94.9 fL (80-100); Monocytes Absolute Auto 400 /uL (0-900); Monocytes Percent Auto 9.1 % (3-14); Neutrophils Absolute Auto 2800 /uL (1500-7000); Platelet Count 200 X10^3/uL (150-400); Red Blood Cell Count 4.98 X10^6/uL (4.0-5.2); Red Cell Distribution Width 13.6 % (11.6-14.8); White Blood Cell Count 4.6 X10^3/uL (4.5-11.0)
[2024-09-15 17:43] LABS: BUN Creatinine Ratio 33.8 (6-22); Blood Urea Nitrogen 22 mg/dL (7-17); Calcium 11.1 mg/dL (8.4-10.2); Carbon Dioxide 32 mmol/L (22-32); Chloride 101 mmol/L (98-107); Estimated Glomerular Filt Rate > 60 mL/min (>60); Glucose 96 mg/dL (80-110); HEMOLYSIS < 15 (0-50); Potassium 4.2 mmol/L (3.4-5.1); Sodium 138 mmol/L (137-145)
== END ==
PROVIDERS: PCP Family Medicine; Referring Provider Internal Medicine; Visit Provider Internal Medicine
DX: I48.0 Paroxysmal atrial fibrillation (principal); E10.9 Type 1 diabetes mellitus without complications; Z79.4 Long term (current) use of insulin
CPT/HCPCS: 36415; 80048; 85025; 97803

== ENCOUNTER → 2024-09-23 16:54 | Outpatient (CLI) | payer OTHER, SELFPAY ==
[2024-01-26 15:15] VITALS: BMI 20.3
--- NOTE | 2024-09-23 16:55 | DI.MG.S_ITS ---
BILATERAL DIGITAL SCREENING MAMMOGRAM 3D/2D WITH CAD: 09/23/2024 CLINICAL: Routine screening. Family history of breast cancer. Comparison is made to exams dated: 08/21/2023 mammogram, 07/20/2022 mammogram, and 07/19/2021 mammogram - [facility]. The breasts are heterogeneously dense, which may obscure small masses (category c / 51-75% glandular tissue). Current study was also evaluated with a Computer Aided Detection (CAD) system. No significant masses, calcifications, or other findings are seen in either breast. There has been no significant interval change. IMPRESSION: NEGATIVE There is no mammographic evidence of malignancy. A 1 year screening mammogram is recommended. Based on Tyrer-Cuzick model (a risk assessment model), the patient's lifetime risk is 22.8% and her 10 year risk is 12.4%. If a patient has an elevated risk, a more comprehensive evaluation should be considered and/or a referral to a genetic counselor. The [place] [employer], [employer], and NCCN Guidelines advise the consideration of Breast MRI as an adjunct to screening mammography in patients whose Lifetime risk to develop breast cancer is 20% or higher. This exam was interpreted at Station ID: [id number]. NOTE: For mammograms, a report in lay terms will be sent to the patient. Approximately 15% of breast malignancies will not be visualized mammographically. In the management of a palpable breast mass, a negative mammogram must not discourage biopsy of a clinically suspicious lesion. Electronically Signed By: Deja givens/yohan:09/24/2024 16:51:07 letter sent: Normal Exam ACR BI-RADS Category 1: Negative
== END ==
PROVIDERS: PCP Family Medicine; Referring Provider Family Medicine; Visit Provider Family Medicine
DX: Z12.31 Encounter for screening mammogram for malignant neoplasm of breast (principal); Z80.3 Family history of malignant neoplasm of breast; R92.333 Mammographic heterogeneous density, bilateral breasts
CPT/HCPCS: 77063; 77067

== ENCOUNTER → 2024-10-22 14:50 | Outpatient (CLI) | payer OTHER, SELFPAY ==
[2024-01-26 15:15] VITALS: BMI 20.3
--- NOTE | 2024-11-25 08:00 | DIAB.MNTFU ---
Follow-up Diabetes Medical Nutrition Therapy Assessment Name: Natalia Russ Date: 10/22/24 Time: 3-330p Dx: Type I Diabetes Provider: Luis Alfredo Fisher presents Dm follow-up. BG management going well. Some elevations after meals. Recently was sick with flu and noticed BG increased. In progress of Medtronic insulin pump 780G acquisition. Using 1:15 I:C and correction 1:50 Anthropometrics: Ht: 67 Wt: 135# reported previously Weight history: UBW of 152# pre diagnosis Physical Activity: PT 1x per week for back Self-Monitoring Blood Glucose: Continued at goal time in range and reduced lows from last visit. Today TIR: 3% very high 18% high 79% in range 0% low 0% very low avmg/dl GMI: 6.9% std dev: 46mg/dl variance 31.3% Last Visit TIR: 2% very high 14% high 82% in range 2% low <1% very low avmg/dl Diabetes Medications: 1:15 Novolog ratio with 1:50 correction-- usually 6u Basaglar 6u Pertinent Labs: HgA1c: 12.5% 01/2024 6.1% 06/2024 reported Past Medical History: (This Medical Record has been edited. Action required.) Bunion of great toe of left foot Bunion of great toe of right foot Thyroid cancer Nutrition Rx: Carbohydrates: Meal:30-45g Snack:15-30g Nutrition Diagnosis: - Nutrition and food related knowledge deficit r/t no previous mnt aeb new dx T1DM and diet recall- improved Intervention: This participant was very receptive. Provided appropriate educational handouts. Discussed the following topics: Sick day management: what to eat when sick, titrating insulin BG review and trends Covering higher CHO meals Created SMART goals for patient self-care and success. Goals: Discuss sick day and pump options with endo- in progress Ask endo for their clinic code for clarity- met message endo about insulin pump- met Eat q 3-4 hours- met Increase to 6u for bagel breakfast- met Practice sick day management prn- new Follow-up: TRAVIS GERMAN follow-up in 4 weeks or sooner if pump equipment arrives. Maude Pool, TRAVIS, MONSERRAT Certified Diabetes Care and Patient Relations Representative P: [phone] Thank you for this referral
== END ==
PROVIDERS: PCP Family Medicine; Referring Provider Family Medicine
DX: E10.9 Type 1 diabetes mellitus without complications (principal); Z71.3 Dietary counseling and surveillance
CPT/HCPCS: 97803

== ENCOUNTER → 2024-11-08 07:09 | Outpatient (CLI) | payer OTHER, SELFPAY ==
[2024-01-26 15:15] VITALS: BMI 20.3
[2024-11-08 08:03] LABS: Hemoglobin A1C% w Est Avg Glu 6.2 % (4.0-6.0)
[2024-11-08 08:08] LABS: BUN Creatinine Ratio 24.1 (6-22); Blood Urea Nitrogen 14 mg/dL (7-17); Calcium 10.7 mg/dL (8.4-10.2); Carbon Dioxide 30 mmol/L (22-32); Chloride 101 mmol/L (98-107); Cholesterol 215 mg/dL (140-199); Estimated Glomerular Filt Rate > 60 mL/min (>60); Glucose 160 mg/dL (80-110); HDL Cholesterol 82 mg/dL (40-60); HEMOLYSIS < 15 (0-50); LDL Cholesterol Calculated 118 mg/dL (<100); Potassium 4.2 mmol/L (3.4-5.1); Sodium 137 mmol/L (137-145); Triglycerides 74 mg/dL (35-150)
[2024-11-08 08:17] LABS: Creatinine Urine Random 109.85 mg/dL
[2024-11-08 08:22] LABS: Microalbumin Urine Random 1.1 mg/dL (0-1.6)
[2024-11-08 08:25] LABS: Free T4, Direct Thyroxine 2.09 ng/dL (0.78-2.19)
[2024-11-08 08:42] LABS: Thyroid Stimulating Hormone < 0.015 uIU/mL (0.47-4.68)
[2024-11-09 22:40] LABS: C Peptide 1.3 ng/mL (1.1-4.4); Insulin Level Total 6.2 uIU/mL (2.6-24.9)
[2024-11-10 09:08] LABS: Thyroglobulin Antibodies < 1.0 IU/mL (0.0-0.9)
== END ==
PROVIDERS: PCP Family Medicine; Referring Provider Internal Medicine Endocrinology, Diabetes & Metabolism; Visit Provider Internal Medicine Endocrinology, Diabetes & Metabolism
DX: E13.9 Other specified diabetes mellitus without complications (principal); Z85.850 Personal history of malignant neoplasm of thyroid; E89.0 Postprocedural hypothyroidism
CPT/HCPCS: 36415; 80048; 80061; 82043; 82570; 83036; 83525; 84432; 84439; 84443; 84681; 86800

== ENCOUNTER 2024-12-07 12:32 | Emergency (ER) | payer OTHER, SELFPAY ==
[2024-01-26 15:15] VITALS: BMI 20.3
[2024-12-07] VITALS (13 sets, daily range): BP systolic 115–139; BP diastolic 72–90; PULSE 62–71; RESP 15–37; TEMP 36.9; O2SAT 96–99; BMI 22.7
--- NOTE | 2024-12-07 12:41 | DI.RAD.S_ITS ---
PROCEDURE: XR CHEST 1V INDICATIONS: chest pain TECHNIQUE: One view of the chest was acquired. COMPARISON: [facility], CR, XR CHEST 1V, 01/26/2024, 13:38. FINDINGS AND IMPRESSION: No airspace consolidation or pleural effusion on this single view study. Normal heart size. Unremarkable osseous structures. Dictated by: Leland Carpio M.D. on 12/07/2024 at 13:23 Approved by: Leland Carpio M.D. on 12/07/2024 at 13:24
--- NOTE | 2024-12-07 12:41 | EKG_ITS ---
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
[2024-12-07 13:22] LABS: Add Manual Diff / Slide Review NO; Basophils Absolute Auto 0 /uL (0-100); Basophils Percent Auto 0.6 % (0-2); Eosinophils Absolute Auto 100 /uL (0-450); Eosinophils Percent Auto 1.1 % (2-4); Hematocrit 46.1 % (36-46); Hemoglobin 15.4 g/dL (12.0-16.0); Lymphocytes Absolute Auto 1200 /uL (1100-4500); Lymphocytes Percent Auto 16.3 % (25-40); Mean Corpuscular HGB Conc 33.4 % (30-36); Mean Corpuscular Hemoglobin 31.4 PG (26-34); Mean Corpuscular Volume 93.9 fL (80-100); Monocytes Absolute Auto 700 /uL (0-900); Monocytes Percent Auto 8.8 % (3-14); Neutrophils Absolute Auto 5500 /uL (1500-7000); Neutrophils Percent Auto 73.2 % (50-75); Platelet Count 270 X10^3/uL (150-400); Red Cell Distribution Width 14.4 % (11.6-14.8); White Blood Cell Count 7.5 X10^3/uL (4.5-11.0)
[2024-12-07 13:56] LABS: INR 1.3 (0.9-1.3); Prothrombin Time 14.3 SECONDS (9.4-12.5)
[2024-12-07 13:57] LABS: PTT Partial Thromboplastin Tim 34 SECONDS (25.1-36.5)
[2024-12-07 14:19] LABS: Alanine Aminotransferase 22 IU/L (<35); Albumin 4.4 g/dL (3.5-5.0); Albumin Globulin Ratio 1.8 (1.0-2.8); Alkaline Phosphatase 111 U/L (38-126); Aspartate Aminotransferase 44 IU/L (14-36); BUN Creatinine Ratio 32.1 (6-22); Bilirubin Total 1.2 mg/dL (0.2-1.3); Blood Urea Nitrogen 18 mg/dL (7-17); Calcium 10.6 mg/dL (8.4-10.2); Carbon Dioxide 31 mmol/L (22-32); Chloride 98 mmol/L (98-107); Creatine Kinase 78 U/L (30-135); Estimated Glomerular Filt Rate > 60 mL/min (>60); Globulin 2.4 g/dL (1.7-4.1); Glucose 108 mg/dL (80-110); HEMOLYSIS 16 (0-50); Lipase 102 U/L (23-300); Magnesium 1.9 mg/dL (1.6-2.3); Potassium 4.3 mmol/L (3.4-5.1); Sodium 136 mmol/L (137-145); Total Protein 6.8 g/dL (6.3-8.2)
[2024-12-07 14:30] LABS: NT-proBNP (BNP-Adult 18+) 41 pg/mL (<125); Troponin I < 0.012 ng/mL (0.01-0.034)
--- NOTE | 2024-12-07 17:25 | ED.CHESTPAIN ---
HPI - Chest Pain General Chief Complaint: Chest Pain Stated Complaint: chest pain/tightness Time Seen by Provider: 12/07/24 17:25 Source: patient, RN notes reviewed and old records reviewed History of Present Illness HPI narrative: 69-year-old female history of hypothyroidism, ADD, diabetes possible type 1a, atrial fibrillation with ablation in July, still on anticoagulation. patient presents with complaint of chest tightness 04/21 that started this morning while getting ready for work does note that she did Pilates and pushups because her glucose was a little elevated. Patient states this was just before she went to work. She works in the [employer] from 07-14 and noticed at work that she felt tight in her chest. She states she had forgotten about this was at work told someone and they told her to come to the ER steroid. She states no shortness of breath no fevers no chills no nausea or vomiting no diaphoresis. No issues with bowel movements or urination. She does not think that started while she was doing pushups. Patient states no swelling of her extremities. She was still on insulin, takes medication for her atrial fibrillation including anticoagulants and ADHD. No known drug allergies. No tobacco, occasional alcohol, no recreational drugs. Dr. Lobato is her primary care physician. Related Data Home Medications Medication Instructions Recorded Confirmed calcium carbonate 400 mg/5 mL oral 400 mg PO DAILY 05/17/20 01/26/24 suspension multivitamin 1 cap PO DAILY 05/17/20 01/26/24 cholecalciferol (vitamin D3) 10 10 mcg PO DAILY 12/11/20 01/26/24 mcg (400 unit) capsule levothyroxine 100 mcg tablet 100 mcg PO DAILY 09/23/22 01/26/24 (Synthroid) vitamin E (dl, acetate) 1 softgel PO DAILY 09/23/22 01/26/24 Previous Rx's Medication Instructions Recorded dextroamphetamine-amphetamine ER 10 mg PO DAILY #30 caps 12/23/22 10 mg 24hr capsule,extend release Allergies Allergy/AdvReac Type Severity Reaction Status Date / Time No Known Drug Allergies Allergy Verified 02/09/24 10:27 Review of Systems Review of Systems ROS Unobtainable: All systems reviewed & are unremarkable except as noted in HPI and below Patient History Medical History Bunion of great toe of right foot Bunion of great toe of left foot Thyroid cancer Surgical History History of arthroscopic knee surgery H/O: hysterectomy History of thyroidectomy Social History household members: none Smoking Status: Never smoker alcohol intake: current Smoking Status: Never smoker alcohol intake frequency: holidays/special occasions only Exam Narrative Exam Narrative: GENERAL: Alert and oriented x three, female in mild distress. HEENT: Head normocephalic, atraumatic, EOMI, pupils reactive, face symmetric, moist mucous membranes NECK: Supple, full range of motion CARDIOVASCULAR: Regular rate and rhythm without murmurs, rubs or gallops. no JVD. No edema bilateral lower extremities. RESPIRATORY: Breath sounds equal bilaterally, no wheezes rales or rhonchi. ABDOMEN: Soft, nontender. Normoactive bowel sounds all 4 quadrants. No guarding or rebound, rigidity, no mass : No CVA tenderness EXTREMITIES: Normal range of motion, no clubbing or edema. Neurovascularly intact NEUROLOGICAL: Cranial nerves II through XII grossly intact. Moving all extremities SKIN: Warm, dry, no petechiae, no rashes or lesions. Initial Vital Signs Initial Vital Signs: Vital Signs Temperature 98.4 F 12/07/24 13:05 Pulse Rate 64 12/07/24 13:05 Respiratory Rate 18 12/07/24 13:05 Blood Pressure 139/72 12/07/24 13:05 Pulse Oximetry 99 12/07/24 13:05 Oxygen Delivery Method Room Air 12/07/24 13:05 Course Orders Ordered: ED Orders 12/07/24 12:41 XR chest 1V Stat EKG-12 Lead Stat 12/07/24 13:02 Complete Blood Count AUTO DIFF Stat PTT Partial Thromboplastin Todd Stat Prothrombin Time INR Stat 12/07/24 13:44 Comprehensive Metabolic Panel Stat Lipase Stat Magnesium Stat NT-proBNP (BNP-Adult 18+) Stat Troponin & CK Cardiac Panel Stat 12/07/24 16:55 Trop I [Troponin I] Stat 12/07/24 17:46 EKG-12 Lead Stat Discontinued Medications Aspirin (Aspirin 81 Mg Chew Tab) 324 mg PO NOW ONE Stop: 12/07/24 12:42 Last Admin: 12/07/24 15:43 Dose: Not Given Documented By: Vital Signs Vital signs: Vital Signs - 8 hr 12/07/24 13:05 12/07/24 14:16 12/07/24 14:30 Temperature 98.4 F Pulse Rate 64 62 65 Respiratory Rate 18 37 H 21 Blood Pressure 139/72 122/76 115/80 Pulse Oximetry 99 97 97 Oxygen Delivery Method Room Air 12/07/24 15:00 12/07/24 15:30 12/07/24 16:00 Temperature Pulse Rate 63 66 70 Respiratory Rate 15 18 20 Blood Pressure 137/72 130/76 123/90 Pulse Oximetry 98 98 97 Oxygen Delivery Method Room Air 12/07/24 16:30 12/07/24 16:30 12/07/24 17:00 Temperature Pulse Rate 71 65 Respiratory Rate 21 34 H Blood Pressure 115/74 Pulse Oximetry 97 98 Oxygen Delivery Method 12/07/24 17:01 12/07/24 17:01 12/07/24 17:30 Temperature Pulse Rate 65 70 Respiratory Rate 18 29 H Blood Pressure 121/72 Pulse Oximetry 98 96 Oxygen Delivery Method 12/07/24 17:31 12/07/24 17:31 12/07/24 18:00 Temperature Pulse Rate 66 65 Respiratory Rate 15 20 Blood Pressure 133/79 Pulse Oximetry 98 96 Oxygen Delivery Method 12/07/24 18:01 12/07/24 18:01 Temperature Pulse Rate 64 65 Respiratory Rate 20 20 Blood Pressure 132/73 Pulse Oximetry 96 97 Oxygen Delivery Method Room Air MDM - Chest Pain Lab Data 12/07/24 13:02 12/07/24 13:44 Labs: Lab Results 12/07/24 12/07/24 12/07/24 Range/Units 13:02 13:44 16:55 WBC 7.5 (4.5-11.0) X10^3/uL RBC 4.90 (4.0-5.2) X10^6/uL Hgb 15.4 (12.0-16.0) g/dL Hct 46.1 H (36-46) % MCV 93.9 (80-100) fL MCH 31.4 (26-34) PG MCHC 33.4 (30-36) % RDW 14.4 (11.6-14.8) % Plt Count 270 (150-400) X10^3/uL Neut % (Auto) 73.2 (50-75) % Lymph % (Auto) 16.3 L (25-40) % Spencer % (Auto) 8.8 (3-14) % Eos % (Auto) 1.1 L (2-4) % Baso % (Auto) 0.6 (0-2) % Neut # (Auto) 5500 (9802-7995) /uL Lymph # (Auto) 1200 (7155-3926) /uL Spencer # (Auto) 700 (0-900) /uL Eos # (Auto) 100 (0-450) /uL Baso # (Auto) 0 (0-100) /uL PT 14.3 H (9.4-12.5) SECONDS INR 1.3 (0.9-1.3) APTT 34 (25.1-36.5) SECONDS Sodium 136 L (137-145) mmol/L Potassium 4.3 (3.4-5.1) mmol/L Chloride 98 (98-107) mmol/L Carbon Dioxide 31 (22-32) mmol/L BUN 18 H (7-17) mg/dL Creatinine 0.56 (0.52-1.04) mg/dL Estimated GFR > 60 (>60) mL/min BUN/Creatinine Ratio 32.1 H (6-22) Glucose 108 (80-110) mg/dL Calcium 10.6 H (8.4-10.2) mg/dL Magnesium 1.9 (1.6-2.3) mg/dL Total Bilirubin 1.2 (0.2-1.3) mg/dL AST 44 H (14-36) IU/L ALT 22 (<35) IU/L Alkaline Phosphatase 111 (38-126) U/L Total Creatine Kinase 78 (30-135) U/L Troponin I < 0.012 0.013 (0.01-0.034) ng/mL NT-Pro-B Natriuret Pep 41 (<125) pg/mL Total Protein 6.8 (6.3-8.2) g/dL Albumin 4.4 (3.5-5.0) g/dL Globulin 2.4 (1.7-4.1) g/dL Albumin/Globulin Ratio 1.8 (1.0-2.8) Lipase 102 (23-300) U/L ECG Data Attestation: I personally reviewed and interpreted this ECG as follows: Prior ECG tracings: available for review Interpretation: sinus rhythm rate of 65 FL 174 QRS is 76 QTC of 438, no acute ST depression. Patient has prior from 01/26/2024 sinus rhythm left axis deviation. nonspecific change. MDM Narrative Medical decision making narrative: Labs show white count 7.5 hemoglobin 15.4 platelets are 270. INR is 1.3 sodium is 136 BUN 18 otherwise normal electrolytes and creatinine glucose is 108 calcium is 10.6, AST is 44, bilirubin is 1.2 ALT is 22 with a lipase of 102. Troponins less than 0.012 with a BNP of 41. Repeat troponin is 0.013 EKG shows sinus rhythm prior from 01/26/2024 nonspecific change. Repeat EKG shows Sinus rhythm rate of 62 FL 160 QRS is 72 QTC of 442, nonspecific change. Chest x-ray shows no acute change Spoke with Dr. Lobaot at 1810, familiar with patient discussed findings from today, symptoms. Discussed observation vs discharge home. Patient was to call office and they will set up for outpatient stress test. Spoke with the patient repeat troponin slightly elevated but still negative. No acute or dynamic EKG changes. Patient does note she had a bunch of pushups which she does not normally do make be causing some chest wall tightness versus chest pain. Patient thinks it started while afterwards she does not recall that it started during her pushups. Discussed observation patient is reluctant. Spoke with her primary care Dr. Lobato he was familiar with the patient we will have her contact and they can set up for outpatient stress test. Discharge Plan Departure Patient Disposition: Home Clinical Impression: Chest pain Instructions: DI for Chest Pain Activity Restrictions/Additional Instructions: Follow up with Dr. Lobato, call first thing in the morning. I spoke wt Dr. Lobato today. Continue your home medications as prescribed. If you have any new or worsening changes increasing or new chest pain, shortness of breath, lightheadedness or passing out, diaphoresis or sweatiness, nausea or vomiting, new swelling in your extremities or other new or concerning changes return to the emergency department. Prescriptions: No Action multivitamin Capsule 1 cap PO DAILY calcium carbonate 400 mg/5 mL suspension 400 mg PO DAILY levothyroxine [Synthroid] 100 mcg tablet 100 mcg PO DAILY cholecalciferol (vitamin D3) 10 mcg (400 unit) capsule 10 mcg PO DAILY vitamin E (dl, acetate) 1 softgel PO DAILY dextroamphetamine-amphetamine 10 mg capsule,extended release 24hr 10 mg PO DAILY Qty: 30 0RF Referrals: Johan Lobato MD [Primary Care Provider] - Stand Alone Forms: Patient Portal/API/Survey
[2024-12-07 17:31] LABS: Troponin I 0.013 ng/mL (0.01-0.034)
--- NOTE | 2024-12-07 17:52 | EKG_ITS ---
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
== END 2024-12-07 18:41 | disposition home or self-care (01) ==
PROVIDERS: Emergency Provider Emergency Medicine; PCP Family Medicine
DX: R07.9 Chest pain, unspecified (principal); E03.9 Hypothyroidism, unspecified; E10.9 Type 1 diabetes mellitus without complications
CPT/HCPCS: 36415; 71045; 80053; 82550; 83690; 83735; 83880; 84484; 85025; 85610; 85730; 93005; 99283; 99284

== ENCOUNTER → 2024-12-16 07:53 | Outpatient (CLI) | payer OTHER, SELFPAY ==
[2024-01-26 15:15] VITALS: BMI 20.3
--- NOTE | 2024-12-16 08:12 | DIAB.FU ---
Addendum entered by Maude Pool 12/23/24 17:23: Diagnosis: Type I Diabetes Original Note: Diabetes Education: Personal CGM and Insulin Pump Start Name: Natalia Russ Date: 12/16/24 Time: Dx: Type II Diabetes Provider: Luis Alfredo Fisher presents Dm follow-up. Currently using 1:15 I:C and correction 1:50 Presents with 780G insulin pump and guardian connect. Settings: TDD: 18u IC: 1:15 ISF: 1:80 basal rate: 0.375u Max basal: 2u/h Max bolus: 8u Set a temp basal r/t 6am 6u basal insulin injection. Anthropometrics: Ht: 67 Wt: 143# Weight history: UBW of 152# pre diagnosis Physical Activity: PT 1x per week for back Self-Monitoring Blood Glucose: Continued at goal time in range. Today TIR: 3% very high 20% high 77% in range 0% low <1% very low avmg/dl GMI: 6.9% std dev: 46mg/dl variance 31.0% Last Visit TIR: 3% very high 18% high 79% in range 0% low 0% very low avmg/dl GMI: 6.9% std dev: 46mg/dl variance 31.3% Diabetes Medications: Aspart via insulin pump Pertinent Labs: HgA1c: 12.5% 01/2024 6.1% 06/2024 reported Past Medical History: (This Medical Record has been edited. Action required.) Bunion of great toe of left foot Bunion of great toe of right foot Thyroid cancer Intervention: This participant was very receptive. Provided appropriate educational handouts. Discussed the following topics: Insulin pump education and self placement Guardian CGM education and self placement [place] for meals/snacks Review of sharps disposal Created SMART goals for patient self-care and success. Goals: Practice sick day management prn- not discussed Wear CGM and insulin pump- new Follow-up: TRAVIS GERMAN follow-up in 1 week in person and Medtronic pump check-in later today and tomorrow via phone. Maude Pool, TRAVIS, MONSERRAT Certified Diabetes Care and Hydroelectric Production Technician P: [phone] Thank you for this referral
== END ==
PROVIDERS: PCP Family Medicine; Referring Provider Family Medicine
DX: Z46.81 Encounter for fitting and adjustment of insulin pump (principal); E11.9 Type 2 diabetes mellitus without complications; Z71.3 Dietary counseling and surveillance; Z79.4 Long term (current) use of insulin
CPT/HCPCS: 95249

== ENCOUNTER → 2024-12-23 15:53 | Outpatient (CLI) | payer OTHER, SELFPAY ==
[2024-01-26 15:15] VITALS: BMI 20.3
--- NOTE | 2024-12-23 17:23 | DIAB.FU ---
Follow-up Diabetes Education Assessment Name: Natalia Russ Date: 12/23/2024 Time: 4-5p Dx: Type I Diabetes Provider: Luis Alfredo Bocanegraina presents Dm follow-up. Brought all her supplies for infusion set and CGM change. Overall, enjoying the new tech and BG are doing very well. No changes to settings. Bolusing appropriately. Settings: TDD: 15.9u IC: 1:15 ISF: 1:80 basal rate: 0.375u Max basal: 2u/h Max bolus: 8u Anthropometrics: Ht: 67 Wt: 143# Weight history: UBW of 152# pre diagnosis Physical Activity: PT 1x per week for back Self-Monitoring Blood Glucose: TIR improved even from previous in range TIR with less elevations and more in goal BG. Today TIR: 0% very high 11% high 89% in range 0% low 0% very low avmg/dl GMI: % std dev: 32mg/dl variance 22.7% Last Visit TIR: 3% very high 20% high 77% in range 0% low <1% very low avmg/dl GMI: 6.9% std dev: 46mg/dl variance 31.0% Diabetes Medications: Aspart via insulin pump Pertinent Labs: HgA1c: 12.5% 01/2024 6.1% 06/2024 reported Past Medical History: (This Medical Record has been edited. Action required.) Bunion of great toe of left foot Bunion of great toe of right foot Thyroid cancer Intervention: This participant was very receptive. Provided appropriate educational handouts. Discussed the following topics: Assisted with self placement of new infusion set and CGM Discussed ways to wear pump comfortably and when to replace battery Created SMART goals for patient self-care and success. Goals: Wear CGM and insulin pump- continue Follow-up: TRAVIS GERMAN follow-up in 1 week Maude Pool RDN, [place] Certified Diabetes Care and Welding Machine Operator Gas P: [phone] Thank you for this referral
== END ==
LOC: DIET 15:53
PROVIDERS: PCP Family Medicine; Referring Provider Family Medicine
DX: Z46.81 Encounter for fitting and adjustment of insulin pump (principal); E10.9 Type 1 diabetes mellitus without complications; Z71.3 Dietary counseling and surveillance
CPT/HCPCS: G0108

== ENCOUNTER → 2024-12-28 08:59 | Outpatient (CLI) | payer OTHER, SELFPAY ==
[2024-01-26 15:15] VITALS: BMI 20.3
--- NOTE | 2024-12-28 09:26 | DIAB.FU ---
Follow-up Diabetes Education Assessment Name: Natalia Russ Date: 12/28/24 Time: 4-095z Dx: Type I Diabetes Provider: Luis Alfredo Grover Natalia presents Dm follow-up. Today reports she needs education on how to change the reservoir only. Running low on insulin. Reports higher CHO intake over the weekend. Also, brought two insulin vials with her. Last Visit Settings: TDD: 15.9u IC: 1:15 ISF: 1:80 basal rate: 0.375u Max basal: 2u/h Max bolus: 8u Anthropometrics: Ht: 67 Wt: 143# Weight history: UBW of 152# pre diagnosis Self-Monitoring Blood Glucose: Last TIR: 0% very high 11% high 89% in range 0% low 0% very low avmg/dl GMI: % std dev: 32mg/dl variance 22.7% Diabetes Medications: Aspart via insulin pump Pertinent Labs: HgA1c: 12.5% 01/2024 6.1% 06/2024 reported Past Medical History: (This Medical Record has been edited. Action required.) Bunion of great toe of left foot Bunion of great toe of right foot Thyroid cancer Intervention: This participant was very receptive. Provided appropriate educational handouts. Discussed the following topics: Assisted with change of insulin pump reservoir Education on insulin storage Goals: Wear CGM and insulin pump- continue Store insulin vials in refrigerator at work- new Follow-up: TRAVIS GERMAN follow-up in 2 days for infusion and CGM change assistance/education. Maude Pool RDN, [place] Certified Diabetes Care and Company Doctor P: [phone] Thank you for this referral
== END ==
LOC: DIET 09:00
PROVIDERS: PCP Family Medicine; Referring Provider Family Medicine
DX: E10.9 Type 1 diabetes mellitus without complications (principal); Z71.3 Dietary counseling and surveillance; Z96.41 Presence of insulin pump (external) (internal)
CPT/HCPCS: G0108

== ENCOUNTER → 2024-12-30 08:25 | Outpatient (CLI) | payer OTHER, SELFPAY ==
[2024-01-26 15:15] VITALS: BMI 20.3
--- NOTE | 2024-12-30 08:58 | DIAB.FU ---
Follow-up Diabetes Education Assessment Name: Natalia Russ Date: 12/30/24 Time: 830-9a Dx: Type I Diabetes Provider: Luis Alfredo Fisher presents Dm follow-up. Some missed boluses when eating out. Higher CHO intake last week due to being at [facility] home Did not charge CGM sensor prior to our visit, but we did end up successfully placing it after the following patient. Settings: TDD: 15.9u IC: 1:15 ISF: 1:80 basal rate: 0.375u Max basal: 2u/h Max bolus: 8u Anthropometrics: Ht: 67 Wt: 143# Weight history: UBW of 152# pre diagnosis Self-Monitoring Blood Glucose: some increase in BG with missed boluses and change in eating habits TIR: 3% very high 14% high 83% in range 0% low 0% very low avmg/dl GMI: 6.9% std dev: 41mg/dl variance 27.2% Last TIR: 0% very high 11% high 89% in range 0% low 0% very low avmg/dl GMI: % std dev: 32mg/dl variance 22.7% Diabetes Medications: Aspart via insulin pump Pertinent Labs: HgA1c: 12.5% 01/2024 6.1% 06/2024 reported Past Medical History: (This Medical Record has been edited. Action required.) Bunion of great toe of left foot Bunion of great toe of right foot Thyroid cancer Intervention: This participant was very receptive. Provided appropriate educational handouts. Discussed the following topics: Assisted with change of infusion set and CGM Bolusing for CHO intake Goals: Store insulin vials in refrigerator at work- met Charge CGM prior to next visit- new Bolus for CHO intake each time- new Follow-up: TRAVIS GERMAN follow-up in 1 week Maude Pool RDN, [place] Certified Diabetes Care and Political Aide P: [phone] Thank you for this referral
== END ==
PROVIDERS: PCP Family Medicine; Referring Provider Family Medicine
DX: E10.9 Type 1 diabetes mellitus without complications (principal); Z96.41 Presence of insulin pump (external) (internal); Z71.3 Dietary counseling and surveillance
CPT/HCPCS: G0108

== ENCOUNTER → 2025-01-06 08:22 | Outpatient (CLI) | payer OTHER, SELFPAY ==
[2024-01-26 15:15] VITALS: BMI 20.3
--- NOTE | 2025-01-06 08:38 | DIAB.FU ---
Follow-up Diabetes Education Assessment Name: Natalia Russ Date: 01/06/25 Time: 658-577h Dx: Type I Diabetes Provider: Luis Alfredo Fisher presents Dm follow-up. Has charged CGM sensor prior to visit. Completing site changes with some direction. Settings: TDD: 22.1u IC: 1:15 ISF: 1:80 basal rate: 0.375u Anthropometrics: Ht: 67 Wt: 143# Weight history: UBW of 152# pre diagnosis Self-Monitoring Blood Glucose: Similar TIR since last visit. Bolusing more frequently. TIR: 3% very high 16% high 81% in range 0% low 0% very low avmg/dl GMI: 7% std dev: 40mg/dl variance 26.2% Last TIR: 3% very high 14% high 83% in range 0% low 0% very low avmg/dl GMI: 6.9% std dev: 41mg/dl variance 27.2% Diabetes Medications: Aspart via insulin pump Pertinent Labs: HgA1c: 12.5% 01/2024 6.1% 06/2024 reported Past Medical History: (This Medical Record has been edited. Action required.) Bunion of great toe of left foot Bunion of great toe of right foot Thyroid cancer Intervention: This participant was very receptive. Provided appropriate educational handouts. Discussed the following topics: Assisted with change of infusion set and CGM Brief review of checking ketones with BG >300mg/dl Ordering supplies Goals: Charge CGM prior to next visit- met Bolus for CHO intake each time- met Order supplies- new Charge CGM after last lunch at work- new Follow-up: TRAVIS GERMAN follow-up in 1 week Maude Pool RDN, [place] Certified Diabetes Care and Wiring Inspector P: [phone] Thank you for this referral
== END ==
PROVIDERS: PCP Family Medicine; Referring Provider Family Medicine
DX: E10.9 Type 1 diabetes mellitus without complications (principal); Z96.41 Presence of insulin pump (external) (internal); Z71.3 Dietary counseling and surveillance
CPT/HCPCS: G0108

== ENCOUNTER → 2025-01-10 07:31 | Outpatient (CLI) | payer OTHER, SELFPAY ==
[2024-01-26 15:15] VITALS: BMI 20.3
[2025-01-10 08:35] LABS: Free T4, Direct Thyroxine 1.97 ng/dL (0.78-2.19)
[2025-01-10 08:49] LABS: Thyroid Stimulating Hormone < 0.015 uIU/mL (0.47-4.68)
== END ==
LOC: LAB 07:31
PROVIDERS: PCP Family Medicine; Referring Provider Internal Medicine Endocrinology, Diabetes & Metabolism; Visit Provider Internal Medicine Endocrinology, Diabetes & Metabolism
DX: E89.0 Postprocedural hypothyroidism (principal)
CPT/HCPCS: 36415; 84439; 84443

== ENCOUNTER → 2025-01-27 13:53 | Outpatient (CLI) | payer OTHER, SELFPAY ==
[2024-01-26 15:15] VITALS: BMI 20.3
--- NOTE | 2025-02-10 08:20 | DIAB.FU ---
Follow-up Diabetes Education Assessment Name: Natalia Russ Date: 01/27/25 Time: 2-240p Dx: Type I Diabetes Provider: Luis Alfredo Bocanegraina presents Dm follow-up. Has charged CGM sensor prior to visit. Completing site changes with some direction. Overall, feeling more comfortable with site changes now. Sometimes skipping CHO to avoid insulin use. Settings: TDD: 22.1u--- 19u IC: 1:15 ISF: 1:80 basal rate: 0.375u Anthropometrics: Ht: 67 Wt: 140# reported 01/27/25 Weight history: UBW of 152# pre diagnosis Self-Monitoring Blood Glucose: Improved TIR with more time in range and less elevations. TIR: 0% very high 5% high 94% in range 0% low 0% very low avmg/dl GMI: 6.2% std dev: 30mg/dl variance 24.4% Last TIR: 3% very high 16% high 81% in range 0% low 0% very low avmg/dl GMI: 7% std dev: 40mg/dl variance 26.2% Diabetes Medications: Aspart via insulin pump Pertinent Labs: HgA1c: 12.5% 01/2024 6.1% 06/2024 reported Past Medical History: (This Medical Record has been edited. Action required.) Bunion of great toe of left foot Bunion of great toe of right foot Thyroid cancer Intervention: This participant was very receptive. Provided appropriate educational handouts. Discussed the following topics: Assisted with change of infusion set and CGM Encouraged CHO intake in moderation and bolusing accordingly Ordering supplies Goals: Order supplies- met Charge CGM after last lunch at work- met Work on adding CHO in moderation and bolusing- new Follow-up: TRAVIS GERMAN follow-up in 2 weeks Maude Pool RDN, [place] Certified Diabetes Care and Mud Worker P: [phone] Thank you for this referral
== END ==
LOC: DIET 13:54
PROVIDERS: PCP Family Medicine
DX: E10.9 Type 1 diabetes mellitus without complications (principal); Z96.41 Presence of insulin pump (external) (internal); Z71.3 Dietary counseling and surveillance
CPT/HCPCS: G0108

== ENCOUNTER → 2025-02-10 15:55 | Outpatient (CLI) | payer OTHER, SELFPAY ==
[2024-01-26 15:15] VITALS: BMI 20.3
--- NOTE | 2025-02-15 08:52 | DIAB.MNTFU ---
Follow-up Diabetes Medical Nutrition Therapy Assessment Name: Natalia Russ Date: 02/10/25 Time: 410-510p Dx: Type I Diabetes Provider: Lenore Fisher presents Dm follow-up. Has successfully changed out infusion set and reservoir at home. Today changing CGM in office. Due for labs at end of month with endo. Plans to switch PCP to . States there was a liver mass found by [facility] PCP that she was unaware of. Skipping CHO often at dinner due to having CHO earlier in the day. Also avoiding eggs to reduce lipid labs. Needing some refreshment on nutrition recs. Diet recall: 8a; coffee with oat tamie vanilla, 1 bagel with whipped butter and apricot jam 2p: apple with pb 6p: saald with 1/2 apple, pumpkin seeds +/- salmon or meat +/- turkish muffin water 16-18oz x 3 Settings: TDD: 22.1u--- 19u IC: 1:15 ISF: 1:80 basal rate: 0.375u Anthropometrics: Ht: 67 Wt: 139# reported 02/10/25 140# reported 01/27/25 Weight history: UBW of 152# pre diagnosis Self-Monitoring Blood Glucose: Similar TIR as last visit. TIR: 0% very high 5% high 95% in range 0% low 0% very low avmg/dl GMI: 6.2% std dev: 30mg/dl variance 24.8% Last TIR: 0% very high 5% high 94% in range 0% low 0% very low avmg/dl GMI: 6.2% std dev: 30mg/dl variance 24.4%% Diabetes Medications: Aspart via insulin pump Pertinent Labs: HgA1c: 12.5% 01/2024 6.1% 06/2024 reported Past Medical History: Bunion of great toe of left foot Bunion of great toe of right foot Thyroid cancer Intervention: This participant was very receptive. Provided appropriate educational handouts. Discussed the following topics: Assisted with change of CGM Heart healthy MNT: fiber and fats, egg nutrition CHO recs and pairing macronutrients Set SMART goals Goals: Work on adding CHO in moderation and bolusing- improved Add consistent CHO and protein to dinner- new Change sites on your own next 3 weeks- new Follow-up: TRAVIS GERMAN follow-up in 3-4 weeks Maude Pool RDN, [place] Certified Diabetes Care and Community Arts Officer P: [phone] Thank you for this referral
== END ==
LOC: DIET 15:55
PROVIDERS: PCP Family Medicine; Referring Provider Family Medicine
DX: E10.9 Type 1 diabetes mellitus without complications (principal); Z96.41 Presence of insulin pump (external) (internal); Z71.3 Dietary counseling and surveillance
CPT/HCPCS: 97803

== ENCOUNTER → 2025-03-10 14:29 | Outpatient (CLI) | payer OTHER, SELFPAY ==
[2024-01-26 15:15] VITALS: BMI 20.3
--- NOTE | 2025-03-10 16:21 | DIAB.MNTFU ---
Follow-up Diabetes Medical Nutrition Therapy Assessment Name: Natalia Russ Date: 03/10/25 Time: 230-320p Dx: Type I Diabetes Provider: Lenore Fisher presents Dm follow-up. Reports recent labs with hgA1c of 6%. Sees endo tomorrow. Feeling confident with site changes with pump and CGM. BG continues to be in goal. Has been adding more CHO to her diet in moderation as we have discussed. Per pump reports, 94g CHO on average per day. Worries about egg intake and lipid labs. Dinner improved with CHO in moderation and low in protein. Diet recall: 8a; coffee with oat creamer vanilla, 1 bagel with whipped butter and apricot jam sn: nothing or apple 2p: Tuna mac and cheese 1-1.5c 6p: salad with 1/2 apple, pumpkin seeds, slice of bread 8-9p: sf pudding with berries water 16-18oz x 3 Settings: TDD: 22.1u--- 19u---- 22u IC: 1:15 ISF: 1:80 basal rate: 0.375u Anthropometrics: Ht: 67 Wt: 137# reported 03/10/25 139# reported 02/10/25 140# reported 01/27/25 Weight history: UBW of 152# pre diagnosis. Personal goal around 140# reported. Self-Monitoring Blood Glucose: Similar TIR as last visit with slight increase in hyperglycemia. Still meeting in goal time. TIR: 0% very high 9% high 91% in range 0% low 0% very low avmg/dl GMI: 6.4% std dev: 33mg/dl variance % Last TIR: 0% very high 5% high 95% in range 0% low 0% very low avmg/dl GMI: 6.2% std dev: 30mg/dl variance 24.8% Diabetes Medications: Aspart via insulin pump Pertinent Labs: HgA1c: 12.5% 01/2024 6.1% 06/2024 reported 6.0% 02/2025 reported Past Medical History: Bunion of great toe of left foot Bunion of great toe of right foot Thyroid cancer Nutrition Rx: Carbohydrates: Meal:30-45g Snack:15-30g Nutrition Diagnosis: - Inconsistent protein intake r/t nutrition knowledge deficit aeb diet recall and pt report Intervention: This participant was very receptive. Provided appropriate educational handouts. Discussed the following topics: CGM site change Protein sources Eggs nutrition CHO portions BG goals Wt goals and limiting wt loss Set SMART goals Goals: Add consistent CHO and protein to dinner- in progress Change sites on your own next 3 weeks- met Add more protein to dinner- new Follow-up: TRAVIS GERMAN follow-up in 3-6 months. Overall, Natalia is managing her Dm well. Encouraged her to call or message for sooner f/u prn. Maude Pool RDN, [facility] Certified Diabetes Care and Chain Hooker P: [phone] Thank you for this referral
== END ==
PROVIDERS: PCP Family Medicine; Referring Provider Family Medicine
DX: E10.65 Type 1 diabetes mellitus with hyperglycemia (principal); Z96.41 Presence of insulin pump (external) (internal); Z71.3 Dietary counseling and surveillance
CPT/HCPCS: 97803

== ENCOUNTER → 2025-06-07 14:57 | Outpatient (CLI) | payer OTHER, SELFPAY ==
[2024-01-26 15:15] VITALS: BMI 20.3
--- NOTE | 2025-06-29 12:18 | DIAB.FU ---
Follow-up Diabetes Education Assessment Name: Natalia Russ Date: 06/07/25 Time: 315-4p Dx: Type I Diabetes Provider: Lenore Bocanegraina presents Dm follow-up. Seems to accidentally have changed her BG target in her pump to 120mg/dl. So today we reduced this back to 100mg/dl. Reports correcting BG with false carb entries into pump. Would like to change alerts, since she is getting alerts on both her phone and yousif. Overall, BG management continues to go well. Plans for [place] trip coming up. Settings: TDD: 22.1u--- 19u---- 22u--- 17.1u IC: 1:15 ISF: 1:80 basal rate: 0.375u Target: 120mg/dl---- 100mg/dl Anthropometrics: Ht: 67 Wt: 138-140# reported 05/2025 137# reported 03/10/25 139# reported 02/10/25 140# reported 01/27/25 Weight history: UBW of 152# pre diagnosis. Personal goal around 140# reported. Self-Monitoring Blood Glucose: Similar TIR as last visit with improved BG since last visit. Meeting in goal time. TIR: 0% very high 5% high 95% in range 0% low 0% very low avmg/dl GMI: 6.4% std dev: 28mg/dl variance % Last TIR: 0% very high 9% high 91% in range 0% low 0% very low avmg/dl GMI: 6.4% std dev: 33mg/dl variance % Diabetes Medications: Aspart via insulin pump Pertinent Labs: HgA1c: 12.5% 01/2024 6.1% 06/2024 reported 6.0% 02/2025 reported Past Medical History: Bunion of great toe of left foot Bunion of great toe of right foot Thyroid cancer Intervention: This participant was very receptive. Provided appropriate educational handouts. Discussed the following topics: Smart Guard target BG changes to rec settings Sound/alert changes Correcting with false carbs vs correction bolusing Set SMART goals Goals: Add more protein to dinner- met Use alert changes and vibration mode prn- new Follow-up: TRAVIS GERMAN follow-up in 3 months. Maude Pool RDN, [place] Certified Diabetes Care and Computer System Validation Specialist P: [phone] Thank you for this referral
== END ==
PROVIDERS: PCP Family Medicine; Referring Provider Family Medicine
DX: E10.9 Type 1 diabetes mellitus without complications (principal); Z71.3 Dietary counseling and surveillance; Z96.41 Presence of insulin pump (external) (internal)
CPT/HCPCS: G0108

== ENCOUNTER → 2025-07-06 07:03 | Outpatient (CLI) | payer OTHER, SELFPAY ==
[2024-01-26 15:15] VITALS: BMI 20.3
[2025-07-06 08:21] LABS: Free T4, Direct Thyroxine 2.06 ng/dL (0.78-2.19)
[2025-07-06 08:35] LABS: Thyroid Stimulating Hormone 0.136 uIU/mL (0.47-4.68)
== END ==
PROVIDERS: PCP Family Medicine; Referring Provider Internal Medicine Endocrinology, Diabetes & Metabolism; Visit Provider Internal Medicine Endocrinology, Diabetes & Metabolism
DX: E89.0 Postprocedural hypothyroidism (principal)
CPT/HCPCS: 36415; 84439; 84443

== ENCOUNTER → 2025-09-20 14:55 | Outpatient (CLI) | payer OTHER, SELFPAY ==
[2024-01-26 15:15] VITALS: BMI 20.3
--- NOTE | 2025-09-20 15:03 | DIAB.MNTFU ---
Follow-up Diabetes Medical Nutrition Therapy Assessment Name: Natalia Russ Date: 09/20/25 Time: 3-350p Dx: SHANKAR Provider: Lenore/Luis Alfredo Fisher presents Dm follow-up. Continues to do well. Recent hgA1c improved from 6.6% to 6.4%. Seeing Zina, last visit 06/2025. Sometimes does not bolus for in between sweets, ie holiday treats. Needs info on elevated cholesterol. Last lipid panel through [facility] showed elevated LDL. No statin therapy. D/c of butter, but uses coconut oil sometimes with cooking. Otherwise, uses olive oil. Settings: TDD: 22.1u--- 19u---- 22u--- 17.1u--- 26.6u IC: 1:15 ISF: 1:80 basal rate: 0.375u Target: 120mg/dl---- 100mg/dl Anthropometrics: Ht: 67 Wt: 138-140# reported 05/2025 137# reported 03/10/25 139# reported 02/10/25 140# reported 01/27/25 Weight history: UBW of 152# pre diagnosis. Personal goal around 140# reported. Self-Monitoring Blood Glucose: Still meeting goal TIR, however increase in elevations lately with holiday treats she is not always bolusing for. TIR: 1% very high 9% high 90% in range 0% low 0% very low avmg/dl GMI: 6.4% std dev: 378mg/dl variance 28.2% Last TIR: 0% very high 5% high 95% in range 0% low 0% very low avmg/dl GMI: 6.4% std dev: 28mg/dl variance % Diabetes Medications: Aspart via insulin pump Pertinent Labs: HgA1c: 12.5% 01/2024 6.1% 06/2024 reported 6.0% 02/2025 reported 6.6% 06/2025 per [facility] pt portal 6.4% 09/2025 per [facility] pt portal Last lipid cholesterol: 215 H HDL: 75 LDL: 123 H T Past Medical History: Bunion of great toe of left foot Bunion of great toe of right foot Thyroid cancer Nutrition Rx: Carbohydrates: Meal:30-45gSnack:15-30g Nutrition Diagnosis: - Predicted excessive saturated fat intake r/t nutrition knowledge deficit aeb pt report and elevated LDL Intervention: This participant was very receptive. Provided appropriate educational handouts. Discussed the following topics: Review of labs Goals for lipids and hgA1c TIR goals Heart healthy nutrition: lipids, fiber Bolusing for sweets Set SMART goals Goals: Use alert changes and vibration mode prn- cont Bolus for sweets- new Try bagel without butter- new Avoid coconut oil- new Use avocado oil- new Eat more beans- new Follow-up: TRAVIS GERMAN follow-up in 3-4 months. Maude Pool RDN, [facility] Certified Diabetes Care and Animal Care Assistant P: [phone] Thank you for this referral
== END ==
LOC: DIET 14:55
PROVIDERS: PCP Family Medicine; Referring Provider Family Medicine
DX: E13.8 Other specified diabetes mellitus with unspecified complications (principal); Z71.3 Dietary counseling and surveillance; Z96.41 Presence of insulin pump (external) (internal); Z79.4 Long term (current) use of insulin
CPT/HCPCS: 97803

== ENCOUNTER → 2025-09-24 10:21 | Outpatient (CLI) | payer OTHER, SELFPAY ==
[2024-01-26 15:15] VITALS: BMI 20.3
--- NOTE | 2025-09-24 10:22 | DI.MG.S_ITS ---
MM screening mammo BI: 09/24/2025. BI-RADS: 1 CLINICAL: 70-year old female for bilateral screening mammogram. Tyrer-Cuzick lifetime risk of 6.9%. Current reported family history of breast cancer: paternal grandmother and sister. PRIOR EXAMS 09/23/2024, 08/21/2023, 07/20/2022, 07/19/2021. MAMMOGRAPHY TECHNIQUE: 2D and 3D (tomosynthesis) digital mammographic views obtained, with additional images as needed for full coverage. Current study was also evaluated with a Computer Aided Detection (CAD) system. DENSITY C. The breasts are heterogeneously dense, which may obscure small masses. MAMMOGRAPHY FINDINGS Bilateral: No suspicious mass, asymmetry, microcalcification, or other abnormality seen. IMPRESSION: * No evidence of malignancy. RECOMMENDATIONS Bilateral * Annual screening mammography. OVERALL ASSESSMENT CATEGORY BI-RADS-1: Negative. The [employer] recommends annual screening mammography beginning at age 40 for women with average risk of breast cancer. ELECTRONICALLY SIGNED: Lizzy Brown M.D. on 09/26/2025 at 03:09:35 PM PT Interpreting Station ID: [id number]
== END ==
PROVIDERS: PCP Family Medicine; Referring Provider Family Medicine; Visit Provider Family Medicine
DX: Z12.31 Encounter for screening mammogram for malignant neoplasm of breast (principal); R92.333 Mammographic heterogeneous density, bilateral breasts; Z80.3 Family history of malignant neoplasm of breast
CPT/HCPCS: 77063; 77067